=== PATIENT | male | born 1965 | race Caucasian/White ===

== ENCOUNTER 2017-01-05 09:50 | Inpatient (IN) | payer OTHER ==
[2017-01-05] MEDS ORDERED: Sodium Chloride 0.9% 2.5 ML Syringe FLUSH PRN (10:16)
[2017-01-05] MEDS ORDERED: Nitroglycerin 2% Oint 1 GM UD Packet TOP ONE (10:16)
[2017-01-05] MEDS ORDERED: Sodium Chloride 0.9% 10 ML Syringe FLUSH PRN (10:16)
[2017-01-05] MEDS ORDERED: Aspirin 81 MG Tab.Chew PO ONE (10:16)
--- NOTE | 2017-01-05 10:19 | EDM.PDOC ---
ED HPI GENERAL MEDICAL PROBLEM - General Chief Complaint: Respiratory Problem Stated Complaint: SOB Time Seen by Provider: 01/05/17 10:09 - History of Present Illness INITIAL COMMENTS - FREE TEXT/NARRATIVE: HISTORY AND PHYSICAL: History of present illness: The patient is a 51-year-old male with a history of [id number] diabetes hypercholesterolemia hypertension who was being followed in our family practice clinic and is currently going to the [facility] and states that over a year ago his numbers were all looking good so he stopped all of his medications. The patient says he has been restarted on the cholesterol med but does not take anything for blood pressure or diabetes. The patient states that he follows with the color strainer here at our hospital. The patient presents to the ER today stating that yesterday afternoon he was out hunting deer and walked only 20-30 yards and felt short of breath. When he stopped walking and rested he felt better. At this time he did not have any chest pain. The patient says that he felt fine the rest of the evening and then was trying to go to sleep and lay down and felt short of breath. He said he does not have a cough or fever but did have a cold last week which improved. The patient states that he did have midsternal chest discomfort which he told one nurse was only mild and another nurse that it was excruciating but on my evaluation tells me it was only mild. He said it did not radiate and he currently does not have the chest discomfort. Patient states he still feels short of breath. He has no leg pain or leg asymmetry but he does admit that his legs get swollen if he does not eat properly. He admits that he drinks a lot of caffeinated products does not hydrate and eats a lot of sodium rich foods. He has no abdominal pain no vomiting no diarrhea and no urinary complaints. Review of systems: As per history of present illness and below otherwise all systems reviewed and negative. Past medical history: As per history of present illness and as reviewed below otherwise noncontributory. Surgical history: As per history of present illness and as reviewed below otherwise noncontributory. Social history: No reported history of drug or alcohol abuse. Family history: As per history of present illness and as reviewed below otherwise noncontributory. Physical exam: General: Well-developed well-nourished overweight male who is nontoxic and vital signs of the note by me. He is not breathless in the ED HEENT: Atraumatic, normocephalic, negative for conjunctival pallor or scleral icterus, mucous membranes moist, throat clear, neck supple, nontender, trachea midline. Lungs: Clear to auscultation, breath sounds equal bilaterally, chest nontender. No worker breathing or sensory muscle use Heart: S1S2, regular, negative for clicks, rubs, or JVD. Abdomen: Soft, nondistended, nontender. Negative for masses or hepatosplenomegaly. Negative for costovertebral tenderness. Pelvis: Stable nontender. Genitourinary: Deferred. Rectal: Deferred. Extremities: Atraumatic, negative for cords or calf pain. Neurovascular unremarkable. The patient does have 1+ pedal edema bilaterally but no leg asymmetry or tenderness Neuro: Awake, alert, oriented. Cranial nerves II through XII unremarkable. Cerebellum unremarkable. Motor and sensory unremarkable throughout. Exam nonfocal. Diagnostics: EKG x 2 CBC CMP BNP INR troponin chest x-ray UA CTA of the chest Therapeutics: Aspirin Nitropaste IV O2 monitor Tylenol 1110: I checked with the patient previously and he states that he felt similarly and had no change in his symptomatology but at this particular time I was called back into the room by nursing because the patient said he suddenly felt more short of breath--like he was suffocating. His O2 sat at that time was 88-89% on room air and he was in the reclined position and was immediately sat up. His blood pressure previously had fallen to 189/97 with the Nitropaste but during this episode of shortness of breath went back up to 192/112. I will perform a repeat EKG and order a CTA of the chest and place oxygen on the patient. Patient states he has not having chest discomfort just feeling more short of breath. When I auscultate he is moving air bilaterally without any wheezing work of breathing stridor or accessory muscle use. He is not breathless 1230: Patient complains nursing of a persistent headache that started after coming to the emergency department and after the placement of nitro paste. I given him Tylenol but he says the distal persistent so we will remove the Nitropaste and I will discuss the further management of his blood pressure with the hospitalist. 1258: Case was discussed with our hospitalist Dr. Fam who requests Lasix 40 mg to be given and he is aware of the removal of the Nitropaste. He states he will further manage the blood pressure on the floor. He requests inpatient admission to telemetry. Patient is also aware of all testing results and need for admission and is agreeable. Critical care time excluding procedures:31min Impression: Episodic dyspnea, fluid overload and hypertension with history of medication noncompliance Definitive disposition and diagnosis as appropriate pending reevaluation and review of above. chest pain Pain Score (Numeric/FACES): 4 - Related Data Allergies Allergy/AdvReac Type Severity Reaction Status Date / Time No Known Allergies Allergy Verified 01/05/17 10:03 Home Meds: Home Meds Cholesterol Meds 01/05/17 [History] Past Medical History HEENT History: Reports: None Cardiovascular History: Reports: High Cholesterol, Hypertension Respiratory History: Reports: Bronchitis, Recurrent Gastrointestinal History: Reports: None Genitourinary History: Reports: None Musculoskeletal History: Reports: None Neurological History: Reports: None Psychiatric History: Reports: Anxiety, Depression Endocrine/Metabolic History: Reports: Diabetes, Type II Hematologic History: Reports: None Immunologic History: Reports: None Oncologic (Cancer) History: Reports: None Dermatologic History: Reports: None - Infectious Disease History Infectious Disease History: Reports: Chicken Pox, Measles, Mumps - Past Surgical History Musculoskeletal Surgical History: Reports: Other (See Below) Other Musculoskeletal Surgeries/Procedures:: surgery to knees & foot Social & Family History - Family History Family Medical History: Noncontributory - Tobacco Use Smoking Status *Q: Former Smoker Used Tobacco, but Quit: Yes Month Tobacco Last Used: 1985 - Caffeine Use Caffeine Use: Reports: Coffee, Soda - Recreational Drug Use Recreational Drug Use: No ED ROS GENERAL - Review of Systems Review Of Systems: ROS reveals no pertinent complaints other than HPI. ED EXAM, GENERAL - Physical Exam Exam: See Below (See dictation) Course - Vital Signs Last Recorded V/S: Last Vital Signs Temp 36.2 C 01/05/17 10:04 Pulse 95 01/05/17 12:20 Resp 18 01/05/17 12:20 BP 181/110 H 01/05/17 12:20 Pulse Ox 94 L 01/05/17 12:20 - Orders/Labs/Meds Orders: Active Orders 24 hr Category Date Time Status Patient Status [ADT] Stat ADT 01/05/17 13:05 Ordered Cardiac Monitoring [RC] . DIRECTED Care 01/05/17 10:15 Active EKG 12 Lead [EKG Documentation Completion] [RC] STAT Care 01/05/17 10:06 Active EKG Documentation Completion [RC] STAT Care 01/05/17 11:13 Active Oxygen Therapy, ED [RC] ASDIRECTED Care 01/05/17 10:15 Active Pulse Oximetry [RC] ASDIRECTED Care 01/05/17 10:15 Active Ang Chest [CT] Stat Exams 01/05/17 11:13 Taken Chest 1V Frontal [CR] Stat Exams 01/05/17 10:16 Taken Furosemide [Lasix] Med 01/05/17 13:04 Once 40 mg IVPUSH NOW ONE Sodium Chloride 0.9% [Saline Flush] Med 01/05/17 10:16 Active 10 ml FLUSH ASDIRECTED PRN Sodium Chloride 0.9% [Saline Flush] Med 01/05/17 10:16 Active 2.5 ml FLUSH ASDIRECTED PRN Saline Lock Insert [OM.PC] Stat Oth 01/05/17 10:15 Ordered Medication Orders Sodium Chloride (Saline Flush) 10 ml FLUSH ASDIRECTED PRN PRN Reason: Keep Vein Open Last Admin: 01/05/17 11:34 Dose: 10 ml Sodium Chloride (Saline Flush) 2.5 ml FLUSH ASDIRECTED PRN PRN Reason: Keep Vein Open Last Admin: 01/05/17 11:35 Dose: 2.5 ml Labs: Laboratory Tests 01/05/17 01/05/17 01/05/17 Range/Units 10:00 10:00 10:00 WBC 10.44 (4.0-11.0) K/uL RBC 5.14 (4.50-5.90) M/uL Hgb 16.0 (13.0-17.0) g/dL Hct 46.8 (38.0-50.0) % MCV 91.1 (80.0-98.0) fL MCH 31.1 (27.0-32.0) pg MCHC 34.2 (31.0-37.0) g/dL RDW Std Deviation 46.6 (28.0-62.0) fl RDW Coeff of Tita 14 (11.0-15.0) % Plt Count 204 (150-400) K/uL MPV 10.10 (7.40-12.00) fL Neut % (Auto) 62.8 (48.0-80.0) % Lymph % (Auto) 21.7 (16.0-40.0) % Edwards % (Auto) 9.7 (0.0-15.0) % Eos % (Auto) 5.0 (0.0-7.0) % Baso % (Auto) 0.8 (0.0-1.5) % Neut # (Auto) 6.6 H (1.4-5.7) K/uL Lymph # (Auto) 2.3 (0.6-2.4) K/uL Edwards # (Auto) 1.0 H (0.0-0.8) K/uL Eos # (Auto) 0.5 (0.0-0.7) K/uL Baso # (Auto) 0.1 (0.0-0.1) K/uL Nucleated RBC % 0.0 /100WBC Nucleated RBCs # 0 K/uL INR 0.98 (0.86-1.11) Sodium 140 (136-146) mmol/L Potassium 4.8 (3.5-5.1) mmol/L Chloride 110 (98-110) mmol/L Carbon Dioxide 19 L (21-31) mmol/L BUN 13 (6.0-23.0) mg/dL Creatinine 1.4 (0.6-1.5) mg/dL Est Cr Clr Drug Dosing 63.13 mL/min Estimated GFR (MDRD) 53.6 ml/min Glucose 111 H (60-110) mg/dL Calcium 9.4 (8.8-10.8) mg/dL Total Bilirubin 0.3 (0.1-1.5) mg/dL AST 67 H (5-40) IU/L ALT 62 H (8-54) IU/L Alkaline Phosphatase 73 (40-150) Troponin I < 0.10 (0.0-0.29) NG/ML B-Natriuretic Peptide (<100) PG/ML Total Protein 6.9 (6.0-8.0) g/dL Albumin 3.8 (3.5-5.0) g/dL Globulin 3.1 (2.0-3.5) g/dL Albumin/Globulin Ratio 1.2 L (1.3-2.8) Urine Color Urine Appearance Urine pH (5.0-8.0) Ur Specific [place] (1.001-1.035) Urine Protein (NEGATIVE) mg/dL Urine Glucose (UA) (NEGATIVE) mg/dL Urine Ketones (NEGATIVE) mg/dL Urine Occult Blood (NEGATIVE) Urine Nitrite (NEGATIVE) Urine Bilirubin (NEGATIVE) Urine Urobilinogen (<2.0) EU/dL Ur Leukocyte Esterase (NEGATIVE) Urine RBC (0-2/HPF) Urine WBC (0-5/HPF) Ur Epithelial Cells (NONE-FEW) Urine Bacteria (NEGATIVE) 01/05/17 01/05/17 Range/Units 10:00 11:28 WBC (4.0-11.0) K/uL RBC (4.50-5.90) M/uL Hgb (13.0-17.0) g/dL Hct (38.0-50.0) % MCV (80.0-98.0) fL MCH (27.0-32.0) pg MCHC (31.0-37.0) g/dL RDW Std Deviation (28.0-62.0) fl RDW Coeff of Tita (11.0-15.0) % Plt Count (150-400) K/uL MPV (7.40-12.00) fL Neut % (Auto) (48.0-80.0) % Lymph % (Auto) (16.0-40.0) % Edwards % (Auto) (0.0-15.0) % Eos % (Auto) (0.0-7.0) % Baso % (Auto) (0.0-1.5) % Neut # (Auto) (1.4-5.7) K/uL Lymph # (Auto) (0.6-2.4) K/uL Edwards # (Auto) (0.0-0.8) K/uL Eos # (Auto) (0.0-0.7) K/uL Baso # (Auto) (0.0-0.1) K/uL Nucleated RBC % /100WBC Nucleated RBCs # K/uL INR (0.86-1.11) Sodium (136-146) mmol/L Potassium (3.5-5.1) mmol/L Chloride (98-110) mmol/L Carbon Dioxide (21-31) mmol/L BUN (6.0-23.0) mg/dL Creatinine (0.6-1.5) mg/dL Est Cr Clr Drug Dosing mL/min Estimated GFR (MDRD) ml/min Glucose (60-110) mg/dL Calcium (8.8-10.8) mg/dL Total Bilirubin (0.1-1.5) mg/dL AST (5-40) IU/L ALT (8-54) IU/L Alkaline Phosphatase (40-150) Troponin I (0.0-0.29) NG/ML B-Natriuretic Peptide < 15 (<100) PG/ML Total Protein (6.0-8.0) g/dL Albumin (3.5-5.0) g/dL Globulin (2.0-3.5) g/dL Albumin/Globulin Ratio (1.3-2.8) Urine Color YELLOW Urine Appearance CLEAR Urine pH 7.0 (5.0-8.0) Ur Specific [place] 1.020 (1.001-1.035) Urine Protein NEGATIVE (NEGATIVE) mg/dL Urine Glucose (UA) NEGATIVE (NEGATIVE) mg/dL Urine Ketones NEGATIVE (NEGATIVE) mg/dL Urine Occult Blood NEGATIVE (NEGATIVE) Urine Nitrite NEGATIVE (NEGATIVE) Urine Bilirubin NEGATIVE (NEGATIVE) Urine Urobilinogen 0.2 (<2.0) EU/dL Ur Leukocyte Esterase NEGATIVE (NEGATIVE) Urine RBC NONE SEEN (0-2/HPF) Urine WBC NONE SEEN (0-5/HPF) Ur Epithelial Cells RARE (NONE-FEW) Urine Bacteria NOT SEEN (NEGATIVE) Meds: Medications Generic Name Dose Route Start Last Admin Trade Name Freq PRN Reason Stop Dose Admin Sodium Chloride 10 ml 01/05/17 10:16 01/05/17 11:34 Saline Flush FLUSH 10 ml ASDIRECTED PRN Administration Keep Vein Open Sodium Chloride 2.5 ml 01/05/17 10:16 01/05/17 11:35 Saline Flush FLUSH 2.5 ml ASDIRECTED PRN Administration Keep Vein Open Discontinued Medications Generic Name Dose Route Start Last Admin Trade Name Freq PRN Reason Stop Dose Admin Acetaminophen 1,000 mg 01/05/17 11:33 01/05/17 11:36 Tylenol Extra Strength PO 01/05/17 11:34 1,000 mg ONETIME ONE Administration Aspirin 324 mg 01/05/17 10:16 01/05/17 10:42 Aspirin PO 01/05/17 10:17 324 mg ONETIME ONE Administration Iopamidol 50 ml 01/05/17 12:26 01/05/17 12:27 Isovue Multipack-370 (76%) IVPUSH 01/05/17 12:27 50 ml ONETIME STA Administration Nitroglycerin 1 gm 01/05/17 10:16 01/05/17 10:41 Nitro-Bid 2% TOP 01/05/17 10:17 1 gm ONETIME ONE Administration Departure - Departure Time of Disposition: 13:08 Disposition: Admitted As Inpatient 67 Condition: Good Clinical Impression: Hypertension Qualifiers: Hypertension type: unspecified secondary hypertension Qualified Code(s): I15.9 - Secondary hypertension, unspecified; I15 - Secondary hypertension Fluid overload Qualifiers: Hypervolemia type: other Qualified Code(s): E87.79 - Other fluid overload Dyspnea Qualifiers: Dyspnea type: unspecified Qualified Code(s): R06.00 - Dyspnea, unspecified - Discharge Information Referrals: PCP,None [Primary Care Provider] - Forms: ED Department Discharge - My Orders Last 24 Hours: My Active Orders 01/05/17 10:06 EKG 12 Lead [EKG Documentation Completion] [RC] STAT 01/05/17 10:15 Cardiac Monitoring [RC] . DIRECTED Oxygen Therapy, ED [RC] ASDIRECTED Pulse Oximetry [RC] ASDIRECTED Saline Lock Insert [OM.PC] Stat 01/05/17 10:16 Chest 1V Frontal [CR] Stat Sodium Chloride 0.9% [Saline Flush] 10 ml FLUSH ASDIRECTED PRN Sodium Chloride 0.9% [Saline Flush] 2.5 ml FLUSH ASDIRECTED PRN 01/05/17 11:13 EKG Documentation Completion [RC] STAT Ang Chest [CT] Stat 01/05/17 13:04 Furosemide [Lasix] 40 mg IVPUSH NOW ONE 01/05/17 13:05 Patient Status [ADT] Stat - Assessment/Plan Last 24 Hours: My Active Orders 01/05/17 10:06 EKG 12 Lead [EKG Documentation Completion] [RC] STAT 01/05/17 10:15 Cardiac Monitoring [RC] . DIRECTED Oxygen Therapy, ED [RC] ASDIRECTED Pulse Oximetry [RC] ASDIRECTED Saline Lock Insert [OM.PC] Stat 01/05/17 10:16 Chest 1V Frontal [CR] Stat Sodium Chloride 0.9% [Saline Flush] 10 ml FLUSH ASDIRECTED PRN Sodium Chloride 0.9% [Saline Flush] 2.5 ml FLUSH ASDIRECTED PRN 01/05/17 11:13 EKG Documentation Completion [RC] STAT Ang Chest [CT] Stat 01/05/17 13:04 Furosemide [Lasix] 40 mg IVPUSH NOW ONE 01/05/17 13:05 Patient Status [ADT] Stat
[2017-01-05 10:51] LABS: CHLORIDE,CL 110 mmol/L (98-110); SODIUM,NA 140 mmol/L (136-146)
[2017-01-05] MEDS ORDERED: Acetaminophen 500 MG Tab PO ONE (11:33)
[2017-01-05] MEDS ORDERED: Iopamidol 755 MG/ML 500 ML Multipack Bottle IVPUSH STA (12:26)
[2017-01-05] MEDS ORDERED: Furosemide 40 MG/4 ML VIAL IVPUSH ONE (13:04)
--- NOTE | 2017-01-05 14:54 | CR ---
EXAM DATE: 01/05/17 PATIENT'S AGE: 51 Patient: DARREN MENDOSA Facility: [place], [place] Site . Site : 1965 Study: XRay Chest [id number]/4/2017 10:42:56 AM Ordering Physician: Ang Vergara Final Report: HISTORY: Chest pain. Shortness of breath. Technique: Portable frontal view of the chest. Comparison: None. Findings: No airspace consolidation. No pleural effusion or pneumothorax. Pulmonary vascular redistribution. Cardiac silhouette is upper limits of normal for size. Impression: Pulmonary vascular congestion. Dictated by Jonathon Roa MD @ Jan 05 2017 11:19AM (Electronic Signature) Report Signed by Proxy. FARRAH
--- NOTE | 2017-01-05 14:57 | CT ---
EXAM DATE: 01/05/17 PATIENT'S AGE: 51 Patient: DARREN MENDOSA Facility: [place], [place] Site . Site : 1965 Study: CT Chest Angio [id number]/4/2017 12:29:35 PM Ordering Physician: Ang Vergara Final Report: INDICATION: Chest pain; rule out pulmonary thromboembolism. Comparison: Chest radiograph 01/05/2017. Technique: CT chest with intravenous contrast; coronal and sagittal reformats. Findings: No CT evidence of acute or chronic pulmonary thromboembolism. No evidence of aortic aneurysm or dissection. Normal size cardiac silhouette without any evidence of pericardial effusion. No acute pneumonic infiltrates. No abnormal intra pulmonary nodular densities. No abnormal mediastinal or hilar lymphadenopathy. No evidence of pleural effusion or chest wall pathology. Limited CT through the upper abdomen is unremarkable. Impression: Negative CT chest with intravenous contrast. Please note that all CT scans at this facility use dose modulation, iterative reconstruction, and/or weight-based dosing when appropriate to reduce radiation dose to as low as reasonably achievable. Dictated by Yash Olmstead MD @ Jan 05 2017 12:41PM (Electronic Signature) Report Signed by Proxy. FARRAH
[2017-01-05] MEDS: Acetaminophen 325 MG Tab PO PRN ×2 (15:06→20:09)
[2017-01-05] MEDS: Insulin Aspart 100 Units/ML 3 ML Pen SUBCUT SCH (17:38)
--- NOTE | 2017-01-05 19:20 | PCM.HP ---
H&P History of Present Illness - General Admit Problem/Dx: Admission Diagnosis/Problem Admission Diagnosis/Problem Fluid volume disorder - History of Present Illness Initial Comments - Free Text/Narative: 51 yo male with pmh of HTN, hyperlipidemia, DM and ANGIE who presents with shortness of breath. Patient reports he stopped taking his blood pressure and diabetic medications several years ago and does not regularly check his BS or BP. He reports 40 pound weight gain this month. He reports increasing pedal edema. He has not had any difficulty breathing until yesterday while walking outside he got short of breath after 30 yards. At night he was short of breath while laying flat. He uses CPAP at night. He denies any chest pain, cough or palpitations. CXR reports pulmonary vascular congestion. CT angio chest is negative for PE. Patient received nitro paste and lasix in ED. Nitro paste was discontinued due to headache. chest pain Pain Score (Numeric/FACES): 4 - Related Data Allergies/Adverse Reactions: Allergies Allergy/AdvReac Type Severity Reaction Status Date / Time No Known Allergies Allergy Verified 01/05/17 10:03 Home Medications: Home Meds Cholesterol Meds 01/05/17 [History] Past Medical History HEENT History: Reports: None Cardiovascular History: Reports: High Cholesterol, Hypertension Respiratory History: Reports: Bronchitis, Recurrent Gastrointestinal History: Reports: None Genitourinary History: Reports: None Musculoskeletal History: Reports: None Neurological History: Reports: None Psychiatric History: Reports: Anxiety, Depression Endocrine/Metabolic History: Reports: Diabetes, Type II Hematologic History: Reports: None Immunologic History: Reports: None Oncologic (Cancer) History: Reports: None Dermatologic History: Reports: None - Infectious Disease History Infectious Disease History: Reports: Chicken Pox, Measles, Mumps - Past Surgical History Musculoskeletal Surgical History: Reports: Other (See Below) Other Musculoskeletal Surgeries/Procedures:: surgery to knees & foot Social & Family History - Family History Family Medical History: Noncontributory - Tobacco Use Smoking Status *Q: Never Smoker Used Tobacco, but Quit: Yes Month Tobacco Last Used: 1985 Second Hand Smoke Exposure: No - Caffeine Use Caffeine Use: Reports: Coffee - Recreational Drug Use Recreational Drug Use: No H&P Review of Systems - Review of Systems: Review Of Systems: ROS reveals no pertinent complaints other than HPI. Exam - Exam Exam: See Below - Vital Signs Vital Signs: Last Vital Signs Temp 36.5 C 01/05/17 16:50 Pulse 78 01/05/17 16:50 Resp 18 01/05/17 16:50 BP 133/95 H 01/05/17 16:50 Pulse Ox 95 01/05/17 16:50 Weight: 166.015 kg - Exam General: Alert, Oriented HEENT: Mucosa Moist & [place] Neck: JVD Cardiovascular: Regular Rate, Regular Rhythm GI/Abdominal Exam: Normal Bowel Sounds, Soft, Non-Tender Extremities: Pedal Edema (+2 pedal edema) Skin: Warm, Dry, Intact - Patient Data Lab Results Last 24 hrs: Laboratory Results - last 24 hr 01/05/17 01/05/17 Range/Units 16:05 17:02 POC Glucose 127 H (60-110) mg/dL Troponin I < 0.10 (0.0-0.29) NG/ML Result Diagrams: 01/05/17 10:00 01/05/17 10:00 EKG INTERPRETATION Rhythm: NSR *Q Meaningful Use (ADM) - VTE *Q VTE Criteria *Q: - Stroke *Q Stroke Criteria *Q: - AMI *Q AMI Criteria *Q: Problem List Initiated/Reviewed/Updated: Yes Orders Last 24hrs: Active Orders 24 hr Category Date Time Status Accu Check [Blood Glucose Check, Bedside] [RC] TIDAC Care 01/05/17 15:48 Active Communication Order [RC] ROUTINE Care 01/05/17 15:00 Active ADA Diabetic [[place] [employer] Diet] [DIET Diet 01/05/17 Dinner Active ] Cardiac [Heart Healthy Diet] [DIET] Diet 01/05/17 Dinner Active TROPONIN I [CHEM] Routine Lab 01/05/17 22:00 Ordered Acetaminophen [Tylenol] Med 01/05/17 14:56 Active 650 mg PO Q4H PRN Furosemide [Lasix] Med 01/05/17 21:00 Ordered 40 mg IVPUSH BID Insulin Aspart [NovoLOG] Med 01/05/17 16:00 Active See Protocol SUBCUT TIDAC Medication Orders Acetaminophen (Tylenol) 650 mg PO Q4H PRN PRN Reason: Pain Last Admin: 01/05/17 15:06 Dose: 650 mg Insulin Aspart (Novolog) 0 unit SUBCUT TIDAC JESSI PRN Reason: Protocol Last Admin: 01/05/17 17:38 Dose: Not Given Admin: 01/05/17 17:38 Dose: Not Given Sodium Chloride (Saline Flush) 10 ml FLUSH ASDIRECTED PRN PRN Reason: Keep Vein Open Last Admin: 01/05/17 11:34 Dose: 10 ml Sodium Chloride (Saline Flush) 2.5 ml FLUSH ASDIRECTED PRN PRN Reason: Keep Vein Open Last Admin: 01/05/17 11:35 Dose: 2.5 ml Assessment/Plan Comment:: 51 yo male admitted with new onset CHF exacerbation. CHF exacerbation: will diures with lasix. echocardiogram ordered HTN: was 170s-190s systolic on presentation now 130s, will continue to monitor DM: on sliding scale insulin and diabetic diet. ANGIE: CPAP at night
[2017-01-05] MEDS: Furosemide 40 MG/4 ML VIAL IVPUSH SCH (20:08)
[2017-01-06] MEDS: Acetaminophen 325 MG Tab PO PRN ×3 (01:25→16:44)
[2017-01-06] MEDS: Insulin Aspart 100 Units/ML 3 ML Pen SUBCUT SCH ×3 (06:56→16:45)
--- NOTE | 2017-01-06 08:04 | PCM.PN ---
- Review of Systems Systems Review Comment:: reports orthopnea at night, breathing is better this morning. - Patient Data Vitals - Most Recent: Last Vital Signs Temp 36.7 C 01/06/17 02:00 Pulse 86 01/06/17 02:00 Resp 20 01/06/17 02:00 BP 159/92 H 01/06/17 02:00 Pulse Ox 93 L 01/06/17 02:00 Weight - Most Recent: 163.8 kg I&O - Last 24 Hours: Intake & Output 01/05/17 01/06/17 01/06/17 23:59 06:59 14:59 Intake Total Output Total Balance Lab Results Last 24 Hours: Laboratory Results - last 24 hr 01/05/17 01/05/17 01/05/17 Range/Units 16:05 17:02 21:45 WBC (4.0-11.0) K/uL RBC (4.50-5.90) M/uL Hgb (13.0-17.0) g/dL Hct (38.0-50.0) % MCV (80.0-98.0) fL MCH (27.0-32.0) pg MCHC (31.0-37.0) g/dL RDW Std Deviation (28.0-62.0) fl RDW Coeff of Tita (11.0-15.0) % Plt Count (150-400) K/uL MPV (7.40-12.00) fL Neut % (Auto) (48.0-80.0) % Lymph % (Auto) (16.0-40.0) % [place] % (Auto) (0.0-15.0) % Eos % (Auto) (0.0-7.0) % Baso % (Auto) (0.0-1.5) % Neut # (Auto) (1.4-5.7) K/uL Lymph # (Auto) (0.6-2.4) K/uL [place] # (Auto) (0.0-0.8) K/uL Eos # (Auto) (0.0-0.7) K/uL Baso # (Auto) (0.0-0.1) K/uL Nucleated RBC % /100WBC Nucleated RBCs # K/uL Sodium (136-146) mmol/L Potassium (3.5-5.1) mmol/L Chloride (98-110) mmol/L Carbon Dioxide (21-31) mmol/L BUN (6.0-23.0) mg/dL Creatinine (0.6-1.5) mg/dL Est Cr Clr Drug Dosing mL/min Estimated GFR (MDRD) ml/min Glucose (60-110) mg/dL POC Glucose 127 H 94 (60-110) mg/dL Calcium (8.8-10.8) mg/dL Troponin I < 0.10 (0.0-0.29) NG/ML 01/05/17 01/06/17 01/06/17 Range/Units 21:54 05:30 05:30 WBC 12.36 H (4.0-11.0) K/uL RBC 5.21 (4.50-5.90) M/uL Hgb 16.0 (13.0-17.0) g/dL Hct 47.5 (38.0-50.0) % MCV 91.2 (80.0-98.0) fL MCH 30.7 (27.0-32.0) pg MCHC 33.7 (31.0-37.0) g/dL RDW Std Deviation 46.3 (28.0-62.0) fl RDW Coeff of Tita 14 (11.0-15.0) % Plt Count 220 (150-400) K/uL MPV 10.10 (7.40-12.00) fL Neut % (Auto) 65.6 (48.0-80.0) % Lymph % (Auto) 20.1 (16.0-40.0) % [place] % (Auto) 9.3 (0.0-15.0) % Eos % (Auto) 4.4 (0.0-7.0) % Baso % (Auto) 0.6 (0.0-1.5) % Neut # (Auto) 8.1 H (1.4-5.7) K/uL Lymph # (Auto) 2.5 H (0.6-2.4) K/uL [place] # (Auto) 1.2 H (0.0-0.8) K/uL Eos # (Auto) 0.5 (0.0-0.7) K/uL Baso # (Auto) 0.1 (0.0-0.1) K/uL Nucleated RBC % 0.0 /100WBC Nucleated RBCs # 0 K/uL Sodium 139 (136-146) mmol/L Potassium 4.3 (3.5-5.1) mmol/L Chloride 102 (98-110) mmol/L Carbon Dioxide 28 (21-31) mmol/L BUN 15 (6.0-23.0) mg/dL Creatinine 1.4 (0.6-1.5) mg/dL Est Cr Clr Drug Dosing 63.13 mL/min Estimated GFR (MDRD) 53.6 ml/min Glucose 138 H (60-110) mg/dL POC Glucose (60-110) mg/dL Calcium 9.6 (8.8-10.8) mg/dL Troponin I < 0.10 (0.0-0.29) NG/ML 01/06/17 Range/Units 07:17 WBC (4.0-11.0) K/uL RBC (4.50-5.90) M/uL Hgb (13.0-17.0) g/dL Hct (38.0-50.0) % MCV (80.0-98.0) fL MCH (27.0-32.0) pg MCHC (31.0-37.0) g/dL RDW Std Deviation (28.0-62.0) fl RDW Coeff of Tita (11.0-15.0) % Plt Count (150-400) K/uL MPV (7.40-12.00) fL Neut % (Auto) (48.0-80.0) % Lymph % (Auto) (16.0-40.0) % [place] % (Auto) (0.0-15.0) % Eos % (Auto) (0.0-7.0) % Baso % (Auto) (0.0-1.5) % Neut # (Auto) (1.4-5.7) K/uL Lymph # (Auto) (0.6-2.4) K/uL [place] # (Auto) (0.0-0.8) K/uL Eos # (Auto) (0.0-0.7) K/uL Baso # (Auto) (0.0-0.1) K/uL Nucleated RBC % /100WBC Nucleated RBCs # K/uL Sodium (136-146) mmol/L Potassium (3.5-5.1) mmol/L Chloride (98-110) mmol/L Carbon Dioxide (21-31) mmol/L BUN (6.0-23.0) mg/dL Creatinine (0.6-1.5) mg/dL Est Cr Clr Drug Dosing mL/min Estimated GFR (MDRD) ml/min Glucose (60-110) mg/dL POC Glucose 114 H (60-110) mg/dL Calcium (8.8-10.8) mg/dL Troponin I (0.0-0.29) NG/ML Med Orders - Current: Current Medications Acetaminophen (Tylenol) 650 mg PO Q4H PRN PRN Reason: Pain Last Admin: 01/06/17 01:25 CDT Dose: 650 mg Enoxaparin Sodium (Lovenox) 40 mg SUBCUT DAILY JESSI Furosemide (Lasix) 40 mg IVPUSH BID JESSI Last Admin: 01/05/17 20:08 Dose: 40 mg Insulin Aspart (Novolog) 0 unit SUBCUT TIDAC JESSI PRN Reason: Protocol Last Admin: 01/06/17 06:56 Dose: Not Given Sodium Chloride (Saline Flush) 10 ml FLUSH ASDIRECTED PRN PRN Reason: Keep Vein Open Last Admin: 01/05/17 11:34 Dose: 10 ml Sodium Chloride (Saline Flush) 2.5 ml FLUSH ASDIRECTED PRN PRN Reason: Keep Vein Open Last Admin: 01/05/17 11:35 Dose: 2.5 ml Discontinued Medications Acetaminophen (Tylenol Extra Strength) 1,000 mg PO ONETIME ONE Stop: 01/05/17 11:34 Last Admin: 01/05/17 11:36 Dose: 1,000 mg Aspirin (Aspirin) 324 mg PO ONETIME ONE Stop: 01/05/17 10:17 Last Admin: 01/05/17 10:42 Dose: 324 mg Furosemide (Lasix) 40 mg IVPUSH NOW ONE Stop: 01/05/17 13:05 Last Admin: 01/05/17 13:13 Dose: 40 mg Iopamidol (Isovue Multipack-370 (76%)) 50 ml IVPUSH ONETIME STA Stop: 01/05/17 12:27 Last Admin: 01/05/17 12:27 Dose: 50 ml Nitroglycerin (Nitro-Bid 2%) 1 gm TOP ONETIME ONE Stop: 01/05/17 10:17 Last Admin: 01/05/17 10:41 Dose: 1 gm - Exam General: Alert, Oriented HEENT: Mucous Membr. Moist/[place] Lungs: Clear to Auscultation, Normal Respiratory Effort Cardiovascular: Regular Rate, Regular Rhythm, No Murmurs, Gallops Extremities: Pedal Edema (+2 edema) Skin: Warm, Dry, Intact Neurological: No New Focal Deficit - Problem List Review Problem List Initiated/Reviewed/Updated: Yes - My Orders Last 24 Hours: My Active Orders 01/05/17 13:30 Telemetry Monitoring [Cardiac Monitoring] [RC] . DIRECTED 01/05/17 14:56 Acetaminophen [Tylenol] 650 mg PO Q4H PRN 01/05/17 15:00 Communication Order [RC] ROUTINE 01/05/17 15:48 Accu Check [Blood Glucose Check, Bedside] [RC] TIDAC 01/05/17 16:00 Insulin Aspart [NovoLOG] See Protocol SUBCUT TIDAC 01/05/17 19:21 Oxygen Therapy [RC] PRN Up ad Reena [RC] ASDIRECTED Vital Signs [RC] Q4H Sequential Compression Device [OM.PC] Per Unit Routine Resuscitation Status Routine 01/05/17 19:22 Antiembolic Devices [RC] PER UNIT ROUTINE 01/05/17 21:00 Furosemide [Lasix] 40 mg IVPUSH BID 01/05/17 Dinner ADA Diabetic [[place] [employer] Diet] [DIET] Cardiac [Heart Healthy Diet] [DIET] 01/06/17 09:00 Enoxaparin [Lovenox] 40 mg SUBCUT DAILY 01/07/17 05:11 BASIC METABOLIC PANEL,BMP [CHEM] AM CBC WITH AUTO DIFF [HEME] AM 01/07/17 07:00 Echo 2D wo Cont [US] Routine - Plan Plan:: 51 yo male admitted with new onset CHF exacerbation. CHF exacerbation: will continue lasix. echocardiogram ordered for tomorrow DM: on sliding scale insulin and diabetic diet. ANGIE: CPAP at night
[2017-01-06] MEDS: Furosemide 40 MG/4 ML VIAL IVPUSH SCH ×2 (09:01→20:13)
[2017-01-06] MEDS: Enoxaparin 40 MG/0.4 ML Syringe SUBCUT SCH (09:01)
[2017-01-06] MEDS ORDERED: hydrALAZINE 20 MG/ML SDV IVPUSH ONE ×2 (14:18→16:32)
[2017-01-06] MEDS ORDERED: diphenhydrAMINE 50 MG/ML SDV IVPUSH ONE (17:30)
[2017-01-06] MEDS ORDERED: Prochlorperazine 10 MG in Sodium Chloride 0.9% 50 ML IV ONE (17:30)
[2017-01-06] MEDS ORDERED: Ketorolac 30 MG/ML SDV IVPUSH ONE (17:30)
[2017-01-06] MEDS ORDERED: LORazepam 2 MG/ML SDV IVPUSH ONE (19:33)
[2017-01-07] MEDS: Lisinopril 10 MG Tab PO SCH (03:06)
[2017-01-07] MEDS: Insulin Aspart 100 Units/ML 3 ML Pen SUBCUT SCH ×3 (06:42→16:29)
[2017-01-07] MEDS: Acetaminophen 325 MG Tab PO PRN ×3 (07:22→17:16)
[2017-01-07] MEDS: Furosemide 40 MG/4 ML VIAL IVPUSH SCH ×3 (08:48→17:15)
[2017-01-07] MEDS: Enoxaparin 40 MG/0.4 ML Syringe SUBCUT SCH (08:48)
[2017-01-07] MEDS ORDERED: Lisinopril 10 MG Tab PO SCH (09:00)
--- NOTE | 2017-01-07 12:26 | PCM.PN ---
- General Info Date of Service: 01/07/17 Subjective Update: Last 24 hours, the patient admitted for shortness of breath, hypertension and CHF exacerbation was found to be hypertensive with blood pressures as high as 190 systolic. I gave this patient hydralazine 10 mg IV twice. The last check this morning his blood pressure is 167 systolic. He was complaining of a headache last night for which I gave him a migraine cocktail consisting of Benadryl, Compazine, Toradol which he responded well to. He was also complaining of anxiety which I gave him 1 mg of Ativan he said that helped a lot. This morning, this patient states that his shortness of breath is improving. He does however complain of orthopnea and leg swelling. He denies any headaches, blurry vision, chest pain or palpitations. - Review of Systems General: Reports: Other (See history of present illness) - Patient Data Vitals - Most Recent: Last Vital Signs Temp 36.6 C 01/07/17 08:00 Pulse 93 01/07/17 08:00 Resp 20 01/07/17 08:00 BP 167/107 H 01/07/17 08:00 Pulse Ox 98 01/07/17 08:00 Weight - Most Recent: 161.6 kg I&O - Last 24 Hours: Intake & Output 01/06/17 01/07/17 01/07/17 22:59 06:59 14:59 Intake Total 340 1600 Output Total 850 2325 Balance -510 -845 Lab Results Last 24 Hours: Laboratory Results - last 24 hr 01/06/17 01/06/17 01/07/17 Range/Units 12:34 17:03 05:18 WBC 12.47 H (4.0-11.0) K/uL RBC 5.64 (4.50-5.90) M/uL Hgb 17.6 H (13.0-17.0) g/dL Hct 51.0 H (38.0-50.0) % MCV 90.4 (80.0-98.0) fL MCH 31.2 (27.0-32.0) pg MCHC 34.5 (31.0-37.0) g/dL RDW Std Deviation 46.4 (28.0-62.0) fl RDW Coeff of Tita 14 (11.0-15.0) % Plt Count 228 (150-400) K/uL MPV 10.00 (7.40-12.00) fL Neut % (Auto) 64.3 (48.0-80.0) % Lymph % (Auto) 20.2 (16.0-40.0) % [place] % (Auto) 11.1 (0.0-15.0) % Eos % (Auto) 4.0 (0.0-7.0) % Baso % (Auto) 0.4 (0.0-1.5) % Neut # (Auto) 8.0 H (1.4-5.7) K/uL Lymph # (Auto) 2.5 H (0.6-2.4) K/uL [place] # (Auto) 1.4 H (0.0-0.8) K/uL Eos # (Auto) 0.5 (0.0-0.7) K/uL Baso # (Auto) 0.1 (0.0-0.1) K/uL Nucleated RBC % 0.0 /100WBC Nucleated RBCs # 0 K/uL Sodium (136-146) mmol/L Potassium (3.5-5.1) mmol/L Chloride (98-110) mmol/L Carbon Dioxide (21-31) mmol/L BUN (6.0-23.0) mg/dL Creatinine (0.6-1.5) mg/dL Est Cr Clr Drug Dosing mL/min Estimated GFR (MDRD) ml/min Glucose (60-110) mg/dL POC Glucose 93 92 (60-110) mg/dL Calcium (8.8-10.8) mg/dL 01/07/17 01/07/17 01/07/17 Range/Units 05:18 06:40 11:47 WBC (4.0-11.0) K/uL RBC (4.50-5.90) M/uL Hgb (13.0-17.0) g/dL Hct (38.0-50.0) % MCV (80.0-98.0) fL MCH (27.0-32.0) pg MCHC (31.0-37.0) g/dL RDW Std Deviation (28.0-62.0) fl RDW Coeff of Tita (11.0-15.0) % Plt Count (150-400) K/uL MPV (7.40-12.00) fL Neut % (Auto) (48.0-80.0) % Lymph % (Auto) (16.0-40.0) % [place] % (Auto) (0.0-15.0) % Eos % (Auto) (0.0-7.0) % Baso % (Auto) (0.0-1.5) % Neut # (Auto) (1.4-5.7) K/uL Lymph # (Auto) (0.6-2.4) K/uL [place] # (Auto) (0.0-0.8) K/uL Eos # (Auto) (0.0-0.7) K/uL Baso # (Auto) (0.0-0.1) K/uL Nucleated RBC % /100WBC Nucleated RBCs # K/uL Sodium 138 (136-146) mmol/L Potassium 4.5 (3.5-5.1) mmol/L Chloride 99 (98-110) mmol/L Carbon Dioxide 25 (21-31) mmol/L BUN 21 (6.0-23.0) mg/dL Creatinine 1.4 (0.6-1.5) mg/dL Est Cr Clr Drug Dosing 63.13 mL/min Estimated GFR (MDRD) 53.6 ml/min Glucose 112 H (60-110) mg/dL POC Glucose 100 57 L (60-110) mg/dL Calcium 9.7 (8.8-10.8) mg/dL Med Orders - Current: Current Medications Acetaminophen (Tylenol) 650 mg PO Q4H PRN PRN Reason: Pain Last Admin: 01/07/17 07:22 Dose: 650 mg Enoxaparin Sodium (Lovenox) 40 mg SUBCUT DAILY [facility] Last Admin: 01/07/17 08:48 Dose: 40 mg Furosemide (Lasix) 40 mg IVPUSH 0600,1200,1600 [facility] Insulin Aspart (Novolog) 0 unit SUBCUT TIDAC [facility] PRN Reason: Protocol Last Admin: 01/07/17 11:57 Dose: Not Given Lisinopril (Prinivil) 20 mg PO DAILY [facility] Last Admin: 01/07/17 03:06 Dose: 20 mg Sodium Chloride (Saline Flush) 10 ml FLUSH ASDIRECTED PRN PRN Reason: Keep Vein Open Last Admin: 01/05/17 11:34 Dose: 10 ml Sodium Chloride (Saline Flush) 2.5 ml FLUSH ASDIRECTED PRN PRN Reason: Keep Vein Open Last Admin: 01/05/17 11:35 Dose: 2.5 ml Discontinued Medications Acetaminophen (Tylenol Extra Strength) 1,000 mg PO ONETIME ONE Stop: 01/05/17 11:34 Last Admin: 01/05/17 11:36 Dose: 1,000 mg Aspirin (Aspirin) 324 mg PO ONETIME ONE Stop: 01/05/17 10:17 Last Admin: 01/05/17 10:42 Dose: 324 mg Diphenhydramine HCl (Benadryl) 25 mg IVPUSH ONETIME ONE Stop: 01/06/17 17:31 Last Admin: 01/06/17 17:56 Dose: 25 mg Furosemide (Lasix) 40 mg IVPUSH NOW ONE Stop: 01/05/17 13:05 Last Admin: 01/05/17 13:13 Dose: 40 mg Furosemide (Lasix) 40 mg IVPUSH BID JESSI Last Admin: 01/07/17 08:48 Dose: 40 mg Furosemide (Lasix) 40 mg IVPUSH TID JESSI Hydralazine HCl (Apresoline) 10 mg IVPUSH ONETIME ONE Stop: 01/06/17 14:19 Last Admin: 01/06/17 14:38 Dose: 10 mg Hydralazine HCl (Apresoline) 10 mg IVPUSH ONETIME ONE Stop: 01/06/17 16:33 Last Admin: 01/06/17 16:43 Dose: 10 mg Prochlorperazine Edisylate 10 (mg/ Sodium Chloride) 52 mls @ 150 mls/hr IV ONETIME ONE Stop: 01/06/17 17:50 Last Admin: 01/06/17 18:20 Dose: 150 mls/hr Iopamidol (Isovue Multipack-370 (76%)) 50 ml IVPUSH ONETIME STA Stop: 01/05/17 12:27 Last Admin: 01/05/17 12:27 Dose: 50 ml Ketorolac Tromethamine (Toradol) 30 mg IVPUSH ONETIME ONE Stop: 01/06/17 17:31 Last Admin: 01/06/17 17:55 Dose: 30 mg Lisinopril (Prinivil) 20 mg PO DAILY JESSI Lorazepam (Ativan) 1 mg IVPUSH ONETIME ONE Stop: 01/06/17 19:34 Last Admin: 01/06/17 20:13 Dose: 1 mg Nitroglycerin (Nitro-Bid 2%) 1 gm TOP ONETIME ONE Stop: 01/05/17 10:17 Last Admin: 01/05/17 10:41 Dose: 1 gm - Exam General: Alert, Oriented, Cooperative Lungs: Clear to Auscultation, Normal Respiratory Effort Cardiovascular: Regular Rate, Regular Rhythm, No Murmurs GI/Abdominal Exam: Normal Bowel Sounds, Soft Extremities: Other (2+ pitting edema bilaterally) Peripheral Pulses: 2+: Dorsalis Pedis (L), Dorsalis Pedis (R) Skin: Warm, Intact - Problem List Review Problem List Initiated/Reviewed/Updated: Yes - My Orders Last 24 Hours: My Active Orders 01/06/17 11:38 Communication Order [RC] ROUTINE 01/07/17 16:00 Furosemide [Lasix] 40 mg IVPUSH 0600,1200,1600 - Assessment Assessment:: Assessment #1. CHF exacerbation #2. Hypertension #3. History of obstructive sleep apnea, diabetes - Plan Plan:: Plan #1. Increase Lasix to 40 mg IV 3 times a day. Continue to follow up on ins and outs #2. Start lisinopril 20 mg by mouth daily #3. Monitor blood pressure #4. Echocardiogram ordered #4. Anticipate discharge tomorrow
[2017-01-07] MEDS ORDERED: Furosemide 40 MG/4 ML VIAL IVPUSH SCH ×2 (14:00→16:00)
[2017-01-08] MEDS: Acetaminophen 325 MG Tab PO PRN ×2 (05:01→08:22)
[2017-01-08] MEDS: Furosemide 40 MG/4 ML VIAL IVPUSH SCH (05:02)
[2017-01-08] MEDS: Insulin Aspart 100 Units/ML 3 ML Pen SUBCUT SCH (06:30)
[2017-01-08] MEDS: Lisinopril 10 MG Tab PO SCH (08:21)
[2017-01-08] MEDS: Enoxaparin 40 MG/0.4 ML Syringe SUBCUT SCH (08:40)
--- NOTE | 2017-01-08 13:17 | PCM.DCSUM1 ---
Discharge Summary - Hospital Course Free Text/Narrative:: Admission date January 05, 2017 Discharge date January 08, 2017 Admission diagnosis #1. CHF exacerbation with shortness of breath #2. Hypertension #3. Type 2 diabetes #4. History of Obstructive sleep apnea #5. Recent 40 pound weight gain #6. History of anxiety Discharge diagnosis #1. CHF exacerbation that is stable and improved #2. Hypertension #3. Type 2 diabetes, obstructive sleep apnea, anxiety #4. Echocardiogram indicating an ejection fraction of 55% and hypertrophic cardiomyopathy. Hospital course: 51-year-old male that presented to the emergency department on 05 January complaining of shortness of breath. This patient reported that he stopped taking all of his antihypertensives and diabetes medications for over a month prior to arrival to the emergency room. He also reported a 40 pound weight gain since then. He was evaluated by the ER and the hospitalist who deemed that he needed to be admitted for CHF exacerbation. He was then admitted for observation. He is started on IV Lasix 40 mg twice a day. Daily reports of ins and outs indicated a adequate diuresis. He was increased to 40 mg IV 3 times a day the day before discharge. Patient's pedal edema along with his shortness of breath improved greatly with this. An echocardiogram was also obtained indicating hypertrophic cardiomyopathy with an ejection fraction of 55% . Patient had an episode of anxiety responded well to 1 mg of Ativan. He requested this again the next day which was declined. He is able to do well without it. He also complained of a headache that same day he had the anxiety, which responded well to a migraine cocktail. Patient also had significant hypertension with blood pressures ranging in the 190s systolic. This responded well to hydralazine 10 mg IV. He was then started on 20 mg of lisinopril. At the time of discharge, blood pressure was on the upper limits of normal. Discharge medications Lisinopril 20 mg daily Lasix 40 mg twice a day 7 days Lasix 40 mg daily thereafter Patient to follow-up with his primary care provider Dr. Murphy within 1 week. Patient agrees to the plan. Patient was advised to return if he expresses any chest pain, shortness of breath, worsening leg swelling. - Discharge Data Discharge Date: 01/08/17 Discharge Disposition: Home, Self-Care 01 Condition: Good - Patient Instructions Diet: Heart Healthy Diet Driving: May Drive Today Notify Provider of: Fever, Increased Pain, Swelling and Redness Other/Special Instructions: shortness of breath, chest pain - Discharge Plan Prescriptions/Med Rec: Furosemide [Lasix] 40 mg PO DAILY 30 Days #30 tablet Furosemide [Lasix] 40 mg PO BID 7 Days #14 tablet Lisinopril [Prinivil] 20 mg PO DAILY 30 Days #60 tablet Home Medications: Home Meds Cholesterol Meds 01/05/17 [History] Escitalopram Oxalate 20 mg PO DAILY 01/07/17 [History] Furosemide [Lasix] 40 mg PO BID 7 Days #14 tablet 01/08/17 [Rx] Lisinopril [Prinivil] 20 mg PO DAILY 30 Days #60 tablet 01/08/17 [Rx] Furosemide [Lasix] 40 mg PO DAILY 30 Days #30 tablet 01/15/17 [Rx] Patient Handouts: Furosemide tablets, Lisinopril tablets, Heart Failure, Easy- to-Read, Hypertension Referrals: Darren Murphy MD [Physician] - 01/17/17 12:00 pm - Discharge Summary/Plan Comment DC Time >30 min.: No Discharge Summary/Plan Comment: Admission date January 05, 2017 Discharge date January 08, 2017 Admission diagnosis #1. CHF exacerbation with shortness of breath #2. Hypertension #3. Type 2 diabetes #4. History of Obstructive sleep apnea #5. Recent 40 pound weight gain #6. History of anxiety Discharge diagnosis #1. CHF exacerbation that is stable and improved #2. Hypertension #3. Type 2 diabetes, obstructive sleep apnea, anxiety #4. Echocardiogram indicating an ejection fraction of 55% and hypertrophic cardiomyopathy. Hospital course: 51-year-old male that presented to the emergency department on 05 January complaining of shortness of breath. This patient reported that he stopped taking all of his antihypertensives and diabetes medications for over a month prior to arrival to the emergency room. He also reported a 40 pound weight gain since then. He was evaluated by the ER and the hospitalist who deemed that he needed to be admitted for CHF exacerbation. He was then admitted for observation. He is started on IV Lasix 40 mg twice a day. Daily reports of ins and outs indicated a adequate diuresis. He was increased to 40 mg IV 3 times a day the day before discharge. Patient's pedal edema along with his shortness of breath improved greatly with this. An echocardiogram was also obtained indicating hypertrophic cardiomyopathy with an ejection fraction of 55% . Patient had an episode of anxiety responded well to 1 mg of Ativan. He requested this again the next day which was declined. He is able to do well without it. He also complained of a headache that same day he had the anxiety, which responded well to a migraine cocktail. Patient also had significant hypertension with blood pressures ranging in the 190s systolic. This responded well to hydralazine 10 mg IV. He was then started on 20 mg of lisinopril. At the time of discharge, blood pressure was on the upper limits of normal. Discharge medications Lisinopril 20 mg daily Lasix 40 mg twice a day 7 days Lasix 40 mg daily thereafter Patient to follow-up with his primary care provider Dr. Murphy within 1 week. Patient agrees to the plan. Patient was advised to return if he expresses any chest pain, shortness of breath, worsening leg swelling. - Patient Data Vitals - Most Recent: Last Vital Signs Temp 36.1 C 01/08/17 08:00 Pulse 86 01/08/17 08:00 Resp 16 01/08/17 08:00 BP 130/78 01/08/17 08:21 Pulse Ox 93 L 01/08/17 08:00 Weight - Most Recent: 159.029 kg I&O - Last 24 hours: Intake & Output 01/07/17 01/08/17 01/08/17 22:59 06:59 14:59 Intake Total 2130 1100 540 Output Total 3100 1675 1150 Balance -970 -575 -610 Lab Results - Last 24 hrs: Laboratory Results - last 24 hr 01/07/17 01/07/17 01/08/17 Range/Units 13:04 16:05 06:11 Sodium (136-146) mmol/L Potassium (3.5-5.1) mmol/L Chloride (98-110) mmol/L Carbon Dioxide (21-31) mmol/L BUN (6.0-23.0) mg/dL Creatinine (0.6-1.5) mg/dL Est Cr Clr Drug Dosing mL/min Estimated GFR (MDRD) ml/min Glucose (60-110) mg/dL POC Glucose 123 H 100 100 (60-110) mg/dL Calcium (8.8-10.8) mg/dL 01/08/17 Range/Units 08:49 Sodium 138 (136-146) mmol/L Potassium 4.0 (3.5-5.1) mmol/L Chloride 100 (98-110) mmol/L Carbon Dioxide 29 (21-31) mmol/L BUN 24 H (6.0-23.0) mg/dL Creatinine 1.4 (0.6-1.5) mg/dL Est Cr Clr Drug Dosing 63.13 mL/min Estimated GFR (MDRD) 53.6 ml/min Glucose 168 H (60-110) mg/dL POC Glucose (60-110) mg/dL Calcium 9.2 (8.8-10.8) mg/dL Med Orders - Current: Current Medications Discontinued Medications Acetaminophen (Tylenol Extra Strength) 1,000 mg PO ONETIME ONE Stop: 01/05/17 11:34 Last Admin: 01/05/17 11:36 Dose: 1,000 mg Acetaminophen (Tylenol) 650 mg PO Q4H PRN PRN Reason: Pain Last Admin: 01/08/17 08:22 Dose: 650 mg Aspirin (Aspirin) 324 mg PO ONETIME ONE Stop: 01/05/17 10:17 Last Admin: 01/05/17 10:42 Dose: 324 mg Diphenhydramine HCl (Benadryl) 25 mg IVPUSH ONETIME ONE Stop: 01/06/17 17:31 Last Admin: 01/06/17 17:56 Dose: 25 mg Enoxaparin Sodium (Lovenox) 40 mg SUBCUT DAILY [facility] Last Admin: 01/08/17 08:40 Dose: 40 mg Furosemide (Lasix) 40 mg IVPUSH NOW ONE Stop: 01/05/17 13:05 Last Admin: 01/05/17 13:13 Dose: 40 mg Furosemide (Lasix) 40 mg IVPUSH BID [facility] Last Admin: 01/07/17 08:48 Dose: 40 mg Furosemide (Lasix) 40 mg IVPUSH TID [facility] Furosemide (Lasix) 40 mg IVPUSH 0600,1200,1600 JESSI Stop: 01/07/17 13:00 Furosemide (Lasix) 40 mg IVPUSH 0600,1300,1600 [facility] Last Admin: 01/08/17 05:02 Dose: 40 mg Hydralazine HCl (Apresoline) 10 mg IVPUSH ONETIME ONE Stop: 01/06/17 14:19 Last Admin: 01/06/17 14:38 Dose: 10 mg Hydralazine HCl (Apresoline) 10 mg IVPUSH ONETIME ONE Stop: 01/06/17 16:33 Last Admin: 01/06/17 16:43 Dose: 10 mg Prochlorperazine Edisylate 10 (mg/ Sodium Chloride) 52 mls @ 150 mls/hr IV ONETIME ONE Stop: 01/06/17 17:50 Last Admin: 01/06/17 18:20 Dose: 150 mls/hr Insulin Aspart (Novolog) 0 unit SUBCUT TIDAC JESSI PRN Reason: Protocol Last Admin: 01/08/17 06:30 Dose: Not Given Iopamidol (Isovue Multipack-370 (76%)) 50 ml IVPUSH ONETIME STA Stop: 01/05/17 12:27 Last Admin: 01/05/17 12:27 Dose: 50 ml Ketorolac Tromethamine (Toradol) 30 mg IVPUSH ONETIME ONE Stop: 01/06/17 17:31 Last Admin: 01/06/17 17:55 Dose: 30 mg Lisinopril (Prinivil) 20 mg PO DAILY [facility] Lisinopril (Prinivil) 20 mg PO DAILY [facility] Last Admin: 01/08/17 08:21 Dose: 20 mg Lorazepam (Ativan) 1 mg IVPUSH ONETIME ONE Stop: 01/06/17 19:34 Last Admin: 01/06/17 20:13 Dose: 1 mg Nitroglycerin (Nitro-Bid 2%) 1 gm TOP ONETIME ONE Stop: 01/05/17 10:17 Last Admin: 01/05/17 10:41 Dose: 1 gm Sodium Chloride (Saline Flush) 10 ml FLUSH ASDIRECTED PRN PRN Reason: Keep Vein Open Last Admin: 01/05/17 11:34 Dose: 10 ml Sodium Chloride (Saline Flush) 2.5 ml FLUSH ASDIRECTED PRN PRN Reason: Keep Vein Open Last Admin: 01/05/17 11:35 Dose: 2.5 ml *Q Meaningful Use (DIS) - VTE *Q VTE Criteria *Q: - Stroke *Q Stroke Criteria *Q: - AMI *Q AMI Criteria *Q:
--- NOTE | 2017-01-10 18:03 | ECHO ---
The echocardiogram report can be seen in this patient's EMR (electronic medical records) in the Reports section. The report has also been scanned into PACS and can be seen there. FARRAH
== END 2017-01-08 10:35 | disposition home or self-care (01) | DRG 293 ==
LOC: MW.ED 09:50 → MW.MS 13:05
PROVIDERS: ADMIT Internal Medicine; ATTEND Internal Medicine
DX: I11.0 Hypertensive heart disease with heart failure (principal); I50.9 Heart failure, unspecified; E11.9 Type 2 diabetes mellitus without complications; E78.5 Hyperlipidemia, unspecified; G47.33 Obstructive sleep apnea (adult) (pediatric); F41.9 Anxiety disorder, unspecified; Z87.891 Personal history of nicotine dependence; Z79.899 Other long term (current) drug therapy
CPT/HCPCS: 36415; 71010; 71010-26; 71275; 71275-26; 80048; 80053; 81001; 82962; 83880; 84484; 85025; 85610; 93005; 93306; 96374; 99284; 99285-25; A9270-GY; J0360; J0780; J1200; J1650; J1885; J1940; J2060; J7050; Q9967

== ENCOUNTER 2017-05-15 10:33 | Observation (INO) | payer OTHER ==
[2017-05-15] MEDS ORDERED: Aspirin 81 MG Tab.Chew PO ONE (10:34)
[2017-05-15] MEDS ORDERED: Sodium Chloride 0.9% 2.5 ML Syringe FLUSH PRN (10:34)
[2017-05-15] MEDS ORDERED: Sodium Chloride 0.9% 10 ML Syringe FLUSH PRN (10:34)
--- NOTE | 2017-05-15 10:45 | EDM.PDOC ---
ED HPI GENERAL MEDICAL PROBLEM - General Chief Complaint: Chest Pain Stated Complaint: CHEST PAIN Time Seen by Provider: 05/15/17 10:34 Source of Information: Reports: Patient History Limitations: Reports: No Limitations - History of Present Illness INITIAL COMMENTS - FREE TEXT/NARRATIVE: HISTORY AND PHYSICAL: History of present illness: Patient is a 52-year-old male who presents to the emergency room with complaints of midsternal chest pain 1 week. He says during this time he has had increased shortness of breath and has not been able to sleep well. Describes the chest pain as a constant pressure; which does not improve nor is relieved by rest or activity. He reports that he had similar symptoms January 2017, which he was admitted for at that time and diagnosed with CHF. He reports he does have prescribed medications for these and "periodically takes them". His not been taking his Lasix, as he reports he has been out of this for several weeks. He denies any headache, blurred vision, fever or chills. He denies any diaphoresis, abdominal pain, nausea, vomiting or diarrhea/constipation. No history of tobacco use. Denies any drug or alcohol abuse. History of hypertension, hyperlipidemia, diabetes, CHF and obstructive sleep apnea. Believes he has a family history of heart disease, but is unsure of specifics. Review of systems: As per history of present illness and below otherwise all systems reviewed and negative. Past medical history: As per history of present illness and as reviewed below otherwise noncontributory. Surgical history: As per history of present illness and as reviewed below otherwise noncontributory. Social history: No reported history of drug or alcohol abuse. Family history: As per history of present illness and as reviewed below otherwise noncontributory. Physical exam: Gen.: Well-developed well-nourished 52-year-old male. Alert and oriented. Nontoxic appearing and in no acute distress. HEENT: Atraumatic, normocephalic, pupils reactive, negative for conjunctival pallor or scleral icterus, mucous membranes moist, throat clear, neck supple, nontender, trachea midline. Lungs: Clear to auscultation, breath sounds equal bilaterally, chest nontender. Heart: S1S2, regular, negative for clicks, rubs, or JVD. Abdomen: Soft, obese, nontender. Negative for masses. Negative for costovertebral tenderness. Pelvis: Stable nontender. Genitourinary: Deferred. Rectal: Deferred. Extremities: Atraumatic, moves all extremities per self without difficulty or deficits, negative for cords or calf pain. Neurovascular unremarkable. Neuro: Awake, alert, oriented. Cranial nerves II through XII unremarkable. Cerebellum unremarkable. Motor and sensory unremarkable throughout. Exam nonfocal. Patient's blood pressure is 206/131, when I asked the patient if he had been taking his medications he said he has been taking them infrequently. He states that his blood pressure is "always high" stating he usually runs in the 200s over 100s. Cardiac workup will be done at this time. 1100- BP is currently 186/114, discussed with the patient that if his labs are normal and addition will be offered at this time. He is agreeable to staying for observation admission. 1115- Chest pain is alleviated after receiving nitro SL. Vitals have improved. WBC 12.18, AST 47, ALT 92. Chest x-ray normal with no pneumonia or infiltrate. 1200- Nitro paste applied. Dr Adamson was consulted on this case. Agreeable to keeping him as observation with telemetry. Patient is aware and voices understanding. He is agreeable to plan of care. Diagnostics: CBC, CMP, troponin, EKG, chest x-ray, BNP Therapeutics: Aspirin, nitroglycerin 3 nitroglycerin paste, morphine 4mg PRN x 1 dose Impression: Chest pain r/o NC Hypertension Plan: Observation admission to Med/Surg with telemetry Definitive disposition and diagnosis as appropriate pending reevaluation and review of above. Duration: Week(s): Location: Reports: Chest Improves with: Reports: None Worsens with: Reports: None Associated Symptoms: Reports: Chest Pain, Shortness of Breath. Denies: Confusion, Cough, cough w sputum, Diaphoresis, Fever/Chills, Headaches, Loss of Appetite, Malaise, Nausea/Vomiting, Rash, Seizure, Syncope, Weakness chest Pain Score (Numeric/FACES): 5 - Related Data Allergies Allergy/AdvReac Type Severity Reaction Status Date / Time No Known Allergies Allergy Verified 05/15/17 10:34 Home Meds: Home Meds Cholesterol Meds 01/05/17 [History] Escitalopram Oxalate 20 mg PO DAILY 01/07/17 [History] Furosemide [Lasix] 40 mg PO BID 7 Days #14 tablet 01/08/17 [Rx] Lisinopril [Prinivil] 20 mg PO DAILY 30 Days #60 tablet 01/08/17 [Rx] Furosemide [Lasix] 40 mg PO DAILY 30 Days #30 tablet 01/15/17 [Rx] Past Medical History HEENT History: Reports: None Cardiovascular History: Reports: High Cholesterol, Hypertension Respiratory History: Reports: Bronchitis, Recurrent Gastrointestinal History: Reports: None Genitourinary History: Reports: None Musculoskeletal History: Reports: None Neurological History: Reports: None Psychiatric History: Reports: Anxiety, Depression Endocrine/Metabolic History: Reports: Diabetes, Type II Hematologic History: Reports: None Immunologic History: Reports: None Oncologic (Cancer) History: Reports: None Dermatologic History: Reports: None - Infectious Disease History Infectious Disease History: Reports: Chicken Pox, Measles, Mumps - Past Surgical History Musculoskeletal Surgical History: Reports: Other (See Below) Other Musculoskeletal Surgeries/Procedures:: surgery to knees & foot Social & Family History - Family History Family Medical History: Noncontributory - Tobacco Use Smoking Status *Q: Never Smoker Used Tobacco, but Quit: Yes Month/Year Tobacco Last Used: 1985 Second Hand Smoke Exposure: No - Caffeine Use Caffeine Use: Reports: Coffee - Recreational Drug Use Recreational Drug Use: No ED ROS GENERAL - Review of Systems Review Of Systems: ROS reveals no pertinent complaints other than HPI. ED EXAM, GENERAL - Physical Exam Exam: See Below (See dictation) EKG INTERPRETATION EKG Date: 05/15/17 Time: 10:38 Rhythm: NSR Rate (Beats/Min): 87 Comparison: No Change Course - Vital Signs Last Recorded V/S: Last Vital Signs Temp 98.0 F 05/15/17 10:39 Pulse 80 05/15/17 10:39 Resp 24 H 05/15/17 10:39 BP 150/103 H 05/15/17 11:09 Pulse Ox 93 L 05/15/17 11:11 - Orders/Labs/Meds Orders: Active Orders 24 hr Category Date Time Status Patient Status [ADT] Stat ADT 05/15/17 12:09 Active EKG Documentation Completion [RC] STAT Care 05/15/17 10:34 Active Sodium Chloride 0.9% [Saline Flush] Med 05/15/17 10:34 Active 10 ml FLUSH ASDIRECTED PRN Sodium Chloride 0.9% [Saline Flush] Med 05/15/17 10:34 Active 2.5 ml FLUSH ASDIRECTED PRN Saline Lock Insert [OM.PC] Stat Oth 05/15/17 10:34 Ordered Medication Orders Sodium Chloride (Saline Flush) 10 ml FLUSH ASDIRECTED PRN PRN Reason: Keep Vein Open Sodium Chloride (Saline Flush) 2.5 ml FLUSH ASDIRECTED PRN PRN Reason: Keep Vein Open Labs: Laboratory Tests 05/15/17 05/15/17 05/15/17 Range/Units 10:58 10:58 10:58 WBC 12.18 H (4.0-11.0) K/uL RBC 6.03 H (4.50-5.90) M/uL Hgb 18.5 H (13.0-17.0) g/dL Hct 55.6 H (38.0-50.0) % MCV 92.2 (80.0-98.0) fL MCH 30.7 (27.0-32.0) pg MCHC 33.3 (31.0-37.0) g/dL RDW Std Deviation 51.9 (28.0-62.0) fl RDW Coeff of Tita 15 (11.0-15.0) % Plt Count 227 (150-400) K/uL MPV 9.80 (7.40-12.00) fL Neut % (Auto) 62.2 (48.0-80.0) % Lymph % (Auto) 18.6 (16.0-40.0) % [place] % (Auto) 12.2 (0.0-15.0) % Eos % (Auto) 6.4 (0.0-7.0) % Baso % (Auto) 0.6 (0.0-1.5) % Neut # (Auto) 7.6 H (1.4-5.7) K/uL Lymph # (Auto) 2.3 (0.6-2.4) K/uL [place] # (Auto) 1.5 H (0.0-0.8) K/uL Eos # (Auto) 0.8 H (0.0-0.7) K/uL Baso # (Auto) 0.1 (0.0-0.1) K/uL Nucleated RBC % 0.0 /100WBC Nucleated RBCs # 0 K/uL Sodium 142 (136-148) mmol/L Potassium 4.9 (3.5-5.1) mmol/L Chloride 105 (98-107) mmol/L Carbon Dioxide 30.4 (21.0-32.0) mmol/L BUN 10 (7.0-18.0) mg/dL Creatinine 1.4 H (0.8-1.3) mg/dL Est Cr Clr Drug Dosing 62.42 mL/min Estimated GFR (MDRD) 53.4 ml/min Glucose 98 (74-106) mg/dL Calcium 9.5 (8.5-10.1) mg/dL Total Bilirubin 0.5 (0.2-1.0) mg/dL AST 47 H (15-37) IU/L ALT 92 H (14-63) IU/L Alkaline Phosphatase 85 (46-116) U/L Troponin I < 0.050 (0.000-0.056) ng/mL B-Natriuretic Peptide < 15 (<100) PG/ML Total Protein 7.5 (6.4-8.2) g/dL Albumin 3.9 (3.4-5.0) g/dL Globulin 3.6 H (2.0-3.5) g/dL Albumin/Globulin Ratio 1.1 L (1.3-2.8) Meds: Medications Generic Name Dose Route Start Last Admin Trade Name Aydenq PRN Reason Stop Dose Admin Sodium Chloride 10 ml 05/15/17 10:34 Saline Flush FLUSH ASDIRECTED PRN Keep Vein Open Sodium Chloride 2.5 ml 05/15/17 10:34 Saline Flush FLUSH ASDIRECTED PRN Keep Vein Open Discontinued Medications Generic Name Dose Route Start Last Admin Trade Name Freq PRN Reason Stop Dose Admin Aspirin 324 mg 05/15/17 10:34 05/15/17 10:57 Aspirin PO 05/15/17 10:35 324 mg ONETIME ONE Administration Morphine Sulfate 4 mg 05/15/17 11:49 Morphine IVPUSH 05/15/17 11:50 ONETIME ONE Nitroglycerin 0.4 mg 05/15/17 10:34 05/15/17 11:09 Nitrostat SL 0.4 mg Q5M PRN Administration Chest Pain Nitroglycerin 1 gm 05/15/17 12:09 Nitro-Bid 2% TOP 05/15/17 12:10 ONETIME ONE Departure - Departure Time of Disposition: 12:21 Disposition: Refer to Observation Clinical Impression: Chest pain, rule out acute myocardial infarction Hypertension Qualifiers: Hypertension type: unspecified Qualified Code(s): I10 - Essential (primary) hypertension Referrals: Darren Murphy MD [Primary Care Provider] - Forms: ED Department Discharge - My Orders Last 24 Hours: My Active Orders 05/15/17 10:34 EKG Documentation Completion [RC] STAT Sodium Chloride 0.9% [Saline Flush] 10 ml FLUSH ASDIRECTED PRN Sodium Chloride 0.9% [Saline Flush] 2.5 ml FLUSH ASDIRECTED PRN Saline Lock Insert [OM.PC] Stat 05/15/17 12:09 Patient Status [ADT] Stat - Assessment/Plan Last 24 Hours: My Active Orders 05/15/17 10:34 EKG Documentation Completion [RC] STAT Sodium Chloride 0.9% [Saline Flush] 10 ml FLUSH ASDIRECTED PRN Sodium Chloride 0.9% [Saline Flush] 2.5 ml FLUSH ASDIRECTED PRN Saline Lock Insert [OM.PC] Stat 05/15/17 12:09 Patient Status [ADT] Stat
[2017-05-15] MEDS: Nitroglycerin 0.4 MG Tab.SL SL PRN ×3 (10:59→11:09)
[2017-05-15 11:31] LABS: CHLORIDE,CL 105 mmol/L (98-107); SODIUM,NA 142 mmol/L (136-148)
[2017-05-15] MEDS ORDERED: Morphine 4 MG/ML Syringe IVPUSH ONE (11:49)
[2017-05-15] MEDS ORDERED: Nitroglycerin 2% Oint 1 GM UD Packet TOP ONE (12:09)
--- NOTE | 2017-05-15 12:19 | CR ---
EXAMINATION: Portable chest radiograph. HISTORY: Chest pain. FINDINGS: The trachea is midline. The cardiomediastinal silhouette is within normal limits. No pulmonary infilt rates, effusions or pneumothorax. Osseous structures appear unremarkable. IMPRESSION: No acute cardiopulmonary process.
--- NOTE | 2017-05-15 13:04 | PCM.HP ---
H&P History of Present Illness - General Date of Service: 05/15/17 Admit Problem/Dx: Admission Diagnosis/Problem Admission Diagnosis/Problem Chest pain, rule out acute myocardial infarction Source of Information: Patient, Family (mother at bedside) History Limitations: Reports: No Limitations - History of Present Illness Initial Comments - Free Text/Narative: This 52 year old male with pmh of morbid obesity, ANGIE with CPAP, CHF with preserved EF, HTN, and DM type 2 presented to the ED with midsternal chest pain and dyspnea that has been going on for approximately 4 days. 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 He went to the [facility] today with these concerns and they sent him to the ED. He reports he has been out of his Lasix for almost 2 weeks now and never thought to call in and get it refilled. He reports he has not been sleeping well at night, waking up short of breath and has noticed water retention in his legs. He also reports not using his CPAP as regularly recently either. He denies fever, URI or abdominal pain. No urinary symptoms and no black or bloody BMs. Denies excessive sodium intake, but reports drinking upwards of 104 oz of Mountain Dew daily. In the ED slight leukocytosis noted, 12,000, Hgb 18.5 hct 55.6, BUN 10 and Cr 1.4, which is at baseline. ALT 47 and AST 92. Troponin negative. BNP <15. CXR negative for acute cardiopulmonary process, but to my observation some pulmonary congestion is noted. EKG SR rates in the 80s, no signs of acute ischemic changes. He will be admitted with suspected CHF exacerbation and chest pain. PCP, [facility]. chest Pain Score (Numeric/FACES): 5 - Related Data Allergies/Adverse Reactions: Allergies Allergy/AdvReac Type Severity Reaction Status Date / Time No Known Allergies Allergy Verified 05/15/17 10:34 Home Medications: Home Meds Cholesterol Meds 01/05/17 [History] Escitalopram Oxalate 20 mg PO DAILY 01/07/17 [History] Furosemide [Lasix] 40 mg PO BID 7 Days #14 tablet 01/08/17 [Rx] Lisinopril [Prinivil] 20 mg PO DAILY 30 Days #60 tablet 01/08/17 [Rx] Furosemide [Lasix] 40 mg PO DAILY 30 Days #30 tablet 01/15/17 [Rx] Past Medical History HEENT History: Reports: None Cardiovascular History: Reports: High Cholesterol, Hypertension, SOB on Exertion. Denies: Afib, Blood Clots/VTE/DVT, CAD, MO Respiratory History: Reports: Bronchitis, Recurrent, Sleep Apnea (CPAP), SOB Gastrointestinal History: Reports: None. Denies: GERD, GI Bleed Genitourinary History: Reports: None. Denies: Chronic Renal Insuffiency Musculoskeletal History: Reports: None Neurological History: Reports: None. Denies: CVA, MS, Seizure, TIA Psychiatric History: Reports: Anxiety, Depression Endocrine/Metabolic History: Reports: Diabetes, Type II (currently not taking any medications.) Hematologic History: Reports: None Immunologic History: Reports: None Oncologic (Cancer) History: Reports: None Dermatologic History: Reports: None - Infectious Disease History Infectious Disease History: Reports: Chicken Pox, Measles, Mumps - Past Surgical History Musculoskeletal Surgical History: Reports: Other (See Below) Other Musculoskeletal Surgeries/Procedures:: surgery to knees & foot and shoulder Social & Family History - Family History Family Medical History: Noncontributory - Tobacco Use Smoking Status *Q: Never Smoker Used Tobacco, but Quit: Yes Month/Year Tobacco Last Used: 1985 Second Hand Smoke Exposure: No - Caffeine Use Caffeine Use: Reports: Coffee, Soda (upwards of 104 oz Mountain Dew daily) - Alcohol Use Alcohol Use History: No - Recreational Drug Use Recreational Drug Use: No - Living Situation & Occupation Living situation: Reports: Single Occupation: Employed H&P Review of Systems - Review of Systems: Review Of Systems: See Below General: Reports: No Symptoms. Denies: Fever, Chills, Malaise, Weakness HEENT: Reports: No Symptoms. Denies: Headaches, Hearing Changes, Sinus Congestion, Sore Throat, Vertigo Pulmonary: Reports: Shortness of Breath. Denies: Wheezing, Pleuritic Chest Pain , Cough, Sputum Cardiovascular: Reports: Chest Pain (currently gone now.), Dyspnea on Exertion, Orthopnea, Edema. Denies: Palpitations, Syncope Gastrointestinal: Reports: No Symptoms. Denies: Abdominal Pain, Black Stool, Bloody Stool, Nausea, Vomiting Genitourinary: Reports: No Symptoms. Denies: Dysuria, Frequency, Burning Musculoskeletal: Reports: No Symptoms. Denies: Neck Pain Skin: Reports: No Symptoms Psychiatric: Reports: No Symptoms. Denies: Confusion Neurological: Reports: No Symptoms. Denies: Headache, Tingling, Change in Speech Hematologic/Lymphatic: Reports: No Symptoms Immunologic: Reports: No Symptoms Exam - Exam Exam: See Below - Vital Signs Vital Signs: Last Vital Signs Temp 98.0 F 05/15/17 10:39 Pulse 96 05/15/17 12:51 Resp 18 05/15/17 12:51 BP 191/121 H 05/15/17 12:51 Pulse Ox 94 L 05/15/17 12:51 Weight: 168.6 kg - Exam Quality Assessment: Supplemental Oxygen, DVT Prophylaxis General: Alert, Oriented, Cooperative HEENT: Conjunctiva Clear, Mucosa Moist & [place] Neck: Supple, JVD Lungs: Normal Respiratory Effort, Decreased Breath Sounds (bilateral bases, with fine crackles) Cardiovascular: Regular Rate, Regular Rhythm GI/Abdominal Exam: Normal Bowel Sounds, Soft, Non-Tender, No Organomegaly, No Distention, No Abnormal Bruit, No Mass, Pelvis Stable, Other (obese abdomen alters assessment) Extremities: Normal Inspection, Normal Range of Motion, Non-Tender, No Pedal Edema, Normal Capillary Refill, Pedal Edema (+1 pitting edema to feet and lower legs.) Neuro Extensive - Mental Status: Alert, Oriented x3, Normal Mood/Affect, Normal Cognition Neuro Extensive - Motor, Sensory, Reflexes: CN II-XII Intact, Normal Gait, Normal Reflexes Psychiatric: Alert, Normal Affect, Normal Mood - Patient Data Lab Results Last 24 hrs: Laboratory Results - last 24 hr 05/15/17 05/15/17 05/15/17 Range/Units 10:58 10:58 10:58 WBC 12.18 H (4.0-11.0) K/uL RBC 6.03 H (4.50-5.90) M/uL Hgb 18.5 H (13.0-17.0) g/dL Hct 55.6 H (38.0-50.0) % MCV 92.2 (80.0-98.0) fL MCH 30.7 (27.0-32.0) pg MCHC 33.3 (31.0-37.0) g/dL RDW Std Deviation 51.9 (28.0-62.0) fl RDW Coeff of Tita 15 (11.0-15.0) % Plt Count 227 (150-400) K/uL MPV 9.80 (7.40-12.00) fL Neut % (Auto) 62.2 (48.0-80.0) % Lymph % (Auto) 18.6 (16.0-40.0) % [place] % (Auto) 12.2 (0.0-15.0) % Eos % (Auto) 6.4 (0.0-7.0) % Baso % (Auto) 0.6 (0.0-1.5) % Neut # (Auto) 7.6 H (1.4-5.7) K/uL Lymph # (Auto) 2.3 (0.6-2.4) K/uL [place] # (Auto) 1.5 H (0.0-0.8) K/uL Eos # (Auto) 0.8 H (0.0-0.7) K/uL Baso # (Auto) 0.1 (0.0-0.1) K/uL Nucleated RBC % 0.0 /100WBC Nucleated RBCs # 0 K/uL Sodium 142 (136-148) mmol/L Potassium 4.9 (3.5-5.1) mmol/L Chloride 105 (98-107) mmol/L Carbon Dioxide 30.4 (21.0-32.0) mmol/L BUN 10 (7.0-18.0) mg/dL Creatinine 1.4 H (0.8-1.3) mg/dL Est Cr Clr Drug Dosing 62.42 mL/min Estimated GFR (MDRD) 53.4 ml/min Glucose 98 (74-106) mg/dL Calcium 9.5 (8.5-10.1) mg/dL Total Bilirubin 0.5 (0.2-1.0) mg/dL AST 47 H (15-37) IU/L ALT 92 H (14-63) IU/L Alkaline Phosphatase 85 (46-116) U/L Troponin I < 0.050 (0.000-0.056) ng/mL B-Natriuretic Peptide < 15 (<100) PG/ML Total Protein 7.5 (6.4-8.2) g/dL Albumin 3.9 (3.4-5.0) g/dL Globulin 3.6 H (2.0-3.5) g/dL Albumin/Globulin Ratio 1.1 L (1.3-2.8) Result Diagrams: 05/15/17 10:58 05/15/17 10:58 EKG INTERPRETATION EKG Date: 05/15/17 Rhythm: NSR Rate (Beats/Min): 80 QRS: Normal ST-T: Normal QT: Normal *Q Meaningful Use (ADM) - VTE *Q VTE Criteria *Q: - Stroke *Q Stroke Criteria *Q: - AMI *Q AMI Criteria *Q: - Problem List (1) Chest pain, rule out acute myocardial infarction SNOMED Code(s): 58073525 ICD Code: R07.9 - CHEST PAIN, UNSPECIFIED Status: Acute Current Visit: Yes (2) Dyspnea SNOMED Code(s): 418520576 ICD Code: R06.00 - DYSPNEA, UNSPECIFIED Status: Acute Current Visit: No Qualifiers: Dyspnea type: unspecified Qualified Code(s): R06.00 - Dyspnea, unspecified (3) CHF (congestive heart failure) SNOMED Code(s): 27945444 ICD Code: I50.9 - HEART FAILURE, UNSPECIFIED Status: Acute Current Visit : Yes Qualifiers: Heart failure type: diastolic Heart failure chronicity: acute on chronic Qualified Code(s): I50.33 - Acute on chronic diastolic (congestive) heart failure (4) Elevated transaminase level SNOMED Code(s): 045666047 ICD Code: R74.0 - NONSPEC ELEV OF LEVELS OF TRANSAMNS & LACTIC ACID DEHYDRGNSE Status: Acute Current Visit: Yes (5) ANGIE on CPAP SNOMED Code(s): 27214179 ICD Code: G47.33 - OBSTRUCTIVE SLEEP APNEA (ADULT) (PEDIATRIC); Z99.89 - DEPENDENCE ON OTHER ENABLING MACHINES AND DEVICES Status: Chronic Current Visit: Yes (6) Morbid obesity with BMI of 50.0-59.9, adult SNOMED Code(s): 216465621 ICD Code: E66.01 - MORBID (SEVERE) OBESITY DUE TO EXCESS CALORIES; Z68.43 - BODY MASS INDEX (BMI) 50-59.9 , ADULT Status: Chronic Current Visit: Yes (7) DM type 2 (diabetes mellitus, type 2) SNOMED Code(s): 40822599 ICD Code: E11.9 - TYPE 2 DIABETES MELLITUS WITHOUT COMPLICATIONS Status: Chronic Current Visit: Yes Qualifiers: Diabetes mellitus complication status: without complication Diabetes mellitus alf insulin use: without medical terminologist use Qualified Code(s): E11.9 - Type 2 diabetes mellitus without complications (8) Hypertension SNOMED Code(s): 92610467 ICD Code: I10 - ESSENTIAL (PRIMARY) HYPERTENSION Status: Chronic Current Visit: Yes Qualifiers: Hypertension type: essential hypertension Qualified Code(s): I10 - Essential (primary) hypertension Problem List Initiated/Reviewed/Updated: Yes Orders Last 24hrs: Active Orders 24 hr Category Date Time Status Patient Status [ADT] Stat ADT 05/15/17 12:09 Active EKG Documentation Completion [RC] STAT Care 05/15/17 10:34 Active Sodium Chloride 0.9% [Saline Flush] Med 05/15/17 10:34 Active 10 ml FLUSH ASDIRECTED PRN Sodium Chloride 0.9% [Saline Flush] Med 05/15/17 10:34 Active 2.5 ml FLUSH ASDIRECTED PRN Saline Lock Insert [OM.PC] Stat Oth 05/15/17 10:34 Ordered Medication Orders Sodium Chloride (Saline Flush) 10 ml FLUSH ASDIRECTED PRN PRN Reason: Keep Vein Open Sodium Chloride (Saline Flush) 2.5 ml FLUSH ASDIRECTED PRN PRN Reason: Keep Vein Open Assessment/Plan Comment:: This 52 year old male admitted with suspected CHF exacerbation and chest pain. 1. CHF exacerbation: Secondary to non-compliance with medications. ECHO 01/2017 reveals preserved EF 55-60% and borderline left ventricular hypertrophy otherwise it was poor study due to body habitus. WIll give Lasix 40 mg IV now and re-evaluate this evening. May need another dose IV then restart home dosing. Arrange follow up with Cardiology. He reports he saw Cardiology at [facility] after last admission in January, will obtain records. 2. Chest pain: Trend troponins and monitor on telemetry. No further chest pain after Nitro x 3 in ED. 3. DM type 2: Obtain A1c, diet control. 4. HTN: Continue Lisinopril. Elevated upon admission, monitor. 5. ANGIE: Encouraged to continue to use CPAP at night. Hgb/Hct elevated likely secondary to ANGIE induced hypoxia 6. Elevated ALT/AST: Will obtain Hepatitis panel and RUQ ultrasound. may be related to venous congestion and fatty infiltration of liver due to obesity and DM. VTE prophylaxis: Heparin Dispo: 1-2 days pending improvement.
[2017-05-15] MEDS ORDERED: Ondansetron 4 MG/2 ML SDV IVPUSH PRN (13:24)
[2017-05-15] MEDS ORDERED: Furosemide 40 MG/4 ML VIAL IVPUSH ONE (13:31)
[2017-05-15] MEDS: Acetaminophen 325 MG Tab PO PRN ×2 (15:14→22:13)
--- NOTE | 2017-05-15 16:11 | US ---
EXAMINATION: Right upper quadrant ultrasound HISTORY: Elevated liver enzymes COMPARISON: None TECHNIQUE: Grayscale and color Doppler images obtained of the right upper quadrant. FINDINGS: The pancreas is not well characterized. The liver is moderately increased in generalized ec hotexture without a focal hepatic mass. The gallbladder wall thickness is normal. No pericholecystic fluid or shadowing gallstones. The common bile duct measures 4 mm. The right kidney measures at least 12.5 cm [id number] without evidence of hydronephrosis. Sonographic Keith sign is negative. IMPRESSION: 1. Moderate fatty infiltration of the liver.
[2017-05-15] MEDS: Heparin Sodium 5,000 Units/ML Vial SUBCUT SCH (20:07)
[2017-05-15] MEDS ORDERED: Temazepam 15 MG Cap PO PRN (22:32)
[2017-05-16] MEDS ORDERED: Furosemide 40 MG/4 ML VIAL IVPUSH ONE (07:38)
[2017-05-16] MEDS: Heparin Sodium 5,000 Units/ML Vial SUBCUT SCH (08:09)
[2017-05-16] MEDS ORDERED: Metoprolol Succinate 25 MG Tab.ER PO SCH (09:00)
[2017-05-16] MEDS ORDERED: Escitalopram 10 MG Tab PO SCH (09:00)
[2017-05-16] MEDS ORDERED: Lisinopril 10 MG Tab PO SCH ×2 (09:00)
[2017-05-16] MEDS ORDERED: Aspirin 81 MG Tab.Chew PO SCH (09:00)
--- NOTE | 2017-05-16 13:37 | PCM.DCSUM1 ---
Discharge Summary - Hospital Course Brief History: This 52 year old male with pmh of morbid obesity, ANGIE with CPAP, CHF with preserved EF, HTN, and DM type 2 presented to the ED with midsternal chest pain and dyspnea that has been going on for approximately 4 days. 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 He went to the [facility] today with these concerns and they sent him to the ED. He reports he has been out of his Lasix for almost 2 weeks now and never thought to call in and get it refilled. He reports he has not been sleeping well at night, waking up short of breath and has noticed water retention in his legs. He also reports not using his CPAP as regularly recently either. He denies fever, URI or abdominal pain. No urinary symptoms and no black or bloody BMs. Denies excessive sodium intake, but reports drinking upwards of 104 oz of Mountain Dew daily. In the ED slight leukocytosis noted, 12,000, Hgb 18.5 hct 55.6, BUN 10 and Cr 1.4, which is at baseline. ALT 47 and AST 92. Troponin negative. BNP < 15. CXR negative for acute cardiopulmonary process, but to my observation some pulmonary congestion is noted. EKG SR rates in the 80s, no signs of acute ischemic changes. He will be admitted with suspected CHF exacerbation and chest pain. PCP, [facility]. - Discharge Data Discharge Date: 05/16/17 Discharge Disposition: Home, Self-Care 01 Condition: Good - Discharge Diagnosis/Problem(s) (1) Chest pain, rule out acute myocardial infarction SNOMED Code(s): 23964654 ICD Code: R07.9 - CHEST PAIN, UNSPECIFIED Status: Acute (2) Dyspnea SNOMED Code(s): 481896151 ICD Code: R06.00 - DYSPNEA, UNSPECIFIED Status: Acute Qualifiers: Dyspnea type: unspecified Qualified Code(s): R06.00 - Dyspnea, unspecified (3) CHF (congestive heart failure) SNOMED Code(s): 35599120 ICD Code: I50.9 - HEART FAILURE, UNSPECIFIED Status: Acute Qualifiers: Heart failure type: diastolic Heart failure chronicity: acute on chronic Qualified Code(s): I50.33 - Acute on chronic diastolic (congestive) heart failure (4) Elevated transaminase level SNOMED Code(s): 495730843 ICD Code: R74.0 - NONSPEC ELEV OF LEVELS OF TRANSAMNS & LACTIC ACID DEHYDRGNSE Status: Acute (5) ANGIE on CPAP SNOMED Code(s): 55411393 ICD Code: G47.33 - OBSTRUCTIVE SLEEP APNEA (ADULT) (PEDIATRIC); Z99.89 - DEPENDENCE ON OTHER ENABLING MACHINES AND DEVICES Status: Chronic (6) Morbid obesity with BMI of 50.0-59.9, adult SNOMED Code(s): 799626555 ICD Code: E66.01 - MORBID (SEVERE) OBESITY DUE TO EXCESS CALORIES; Z68.43 - BODY MASS INDEX (BMI) 50-59.9 , ADULT Status: Chronic (7) DM type 2 (diabetes mellitus, type 2) SNOMED Code(s): 88884029 ICD Code: E11.9 - TYPE 2 DIABETES MELLITUS WITHOUT COMPLICATIONS Status: Chronic Qualifiers: Diabetes mellitus complication status: without complication Diabetes mellitus fci 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 Qualified Code(s): E11.9 - Type 2 diabetes mellitus without complications (8) Hypertension SNOMED Code(s): 65833807 ICD Code: I10 - ESSENTIAL (PRIMARY) HYPERTENSION Status: Chronic Qualifiers: Hypertension type: essential hypertension Qualified Code(s): I10 - Essential (primary) hypertension - Patient Instructions Diet: Heart Healthy Diet, Low Sodium, Diabetic Diet Activity: As Tolerated, No Strenuous Activities, Rest and Relax Today Showering/Bathing: May Shower Notify Provider of: Fever, Increased Pain, Swelling and Redness, Drainage, Nausea and/or Vomiting Other/Special Instructions: Weigh yourself daily and log weights. Call PCP if you start to gain 3-5 lbs over 2-3 days. Monitor Salt intake. Continue CPAP use. Monitor and log Blood pressures and bring to [facility] with [facility]. - Discharge Plan Prescriptions/Med Rec: Furosemide [Lasix] 40 mg PO BID #60 tab Lisinopril 20 mg PO BID #60 tablet Metoprolol Succinate [Toprol XL] 25 mg PO DAILY #30 tab.er Home Medications: Home Meds Escitalopram Oxalate 20 mg PO DAILY 01/07/17 [History] Diclofenac Sodium [IJD: Diclofenac Sodium] 75 mg PO BIDMEALS 05/15/17 [History] QUEtiapine Fumarate [Quetiapine Fumarate] 50 - 100 mg PO BEDTIME PRN 05/15/17 [ History] atorvaSTATin Calcium [Atorvastatin Calcium] 20 mg PO BEDTIME 05/15/17 [History] buPROPion [buPROPion XL] 300 mg PO BEDTIME 05/15/17 [History] Aspirin 81 mg PO DAILY tab.chew 05/16/17 [Rx] Furosemide [Lasix] 40 mg PO BID #60 tab 05/16/17 [Rx] Lisinopril 20 mg PO BID #60 tablet 05/16/17 [Rx] Metoprolol Succinate [Toprol XL] 25 mg PO DAILY #30 tab.er 05/16/17 [Rx] Patient Handouts: Furosemide tablets, Metoprolol tablets, Chest Wall Pain, Easy -to-Read, Lisinopril tablets, Heart Failure, Preventing Heart Failure, Hypertension Referrals: [facility] [Outside] - 05/23/17 9:30 am - Discharge Summary/Plan Comment DC Time >30 min.: No Discharge Summary/Plan Comment: Discharge Diagnoses: Chest pain- related to non-compliance with medications CHF, diastolic, exacerbation related to above ANGIE on CPAP Obesity DM type 2, diet controlled HTN- uncontrolled. Depression Anxiety Rogelio was admitted and treated for chest pain pain, which is likely secondary to his non-compliance with medications, including his Lisinopril, Lasix and Metoprolol. He was reporting dyspnea and midsternal chest pain. CXR revealed some pulmonary congestion and he was treated with IV Lasix 40 mg X 2 doses. Home medications were restarted. BP remained elevated 140/100 which it appears his BP remains near this and they have been working to lower it. We will plan to restart his Lisinopril 20 mg BID and increase his Metoprolol XL to 25 mg daily and restart Lasix 40 mg BID. He was encouraged to stay complaint with his medication, diet including sodium restriction and watch his water intake. Weight loss highly encouraged. Dyspnea improved. Troponins were trended and were negative. Chest pain likely secondary to pulmonary congestion. Today he is very eager to be discharge home and is feeling better. Records reviewed from Dr Nicole, Cardiology at [place] and restarted the medication she listed in her clinic notes. VSS, BP remains elevated but near his [id number]. He will be discharged home on his home medications with refills. He will also need follow up on leukocytosis, slight elevation noted but no infection noted and afebrile. Previous admission it was also slightly elevated at same range 12, 000. Will leave to [facility] to coordinate follow up and potential hematology consult. He also report IM steroid use for building muscle. He was highly encouraged to stop this as this will worsen HTN and CHF as well as mental health with his depression and anxiety. He verbally agrees to stop. He will again be arranged with PCP at [facility] next week. He is to return to ED or clinic if concerns should arise. - General Info Date of Service: 05/16/17 Admission Dx/Problem (Free Text: Admission Diagnosis/Problem Admission Diagnosis/Problem Chest pain, rule out acute myocardial infarction Subjective Update: Sitting up in chair, requesting discharge home. feeling much better and is less short of breath. No chest pain. Functional Status: Reports: Pain Controlled, Tolerating Diet, Ambulating, Urinating - Review of Systems Pulmonary: Reports: No Symptoms. Denies: Shortness of Breath, Pleuritic Chest Pain, Cough, Sputum Cardiovascular: Reports: Edema (scant to BLE.). Denies: Chest Pain Gastrointestinal: Reports: No Symptoms. Denies: Abdominal Pain, Nausea, Vomiting Genitourinary: Reports: No Symptoms. Denies: Dysuria, Frequency, Burning Musculoskeletal: Reports: No Symptoms. Denies: Neck Pain Neurological: Reports: No Symptoms. Denies: Confusion Psychiatric: Reports: No Symptoms. Denies: Confusion - Patient Data Vitals - Most Recent: Last Vital Signs Temp 98.2 F 05/16/17 07:57 Pulse 101 H 05/16/17 09:07 Resp 20 05/16/17 07:57 BP 157/107 H 05/16/17 09:07 Pulse Ox 92 L 05/16/17 07:57 Weight - Most Recent: 165.062 kg I&O - Last 24 hours: Intake & Output 05/15/17 05/16/17 05/16/17 22:59 06:59 14:59 Intake Total 600 1000 Output Total 400 1050 Balance 200 -50 Lab Results - Last 24 hrs: Laboratory Results - last 24 hr 05/15/17 05/15/17 05/16/17 Range/Units 16:55 22:50 05:08 WBC 13.51 H (4.0-11.0) K/uL RBC 5.92 H (4.50-5.90) M/uL Hgb 18.2 H (13.0-17.0) g/dL Hct 54.6 H (38.0-50.0) % MCV 92.2 (80.0-98.0) fL MCH 30.7 (27.0-32.0) pg MCHC 33.3 (31.0-37.0) g/dL RDW Std Deviation 51.7 (28.0-62.0) fl RDW Coeff of Tita 15 (11.0-15.0) % Plt Count 243 (150-400) K/uL MPV 9.70 (7.40-12.00) fL Neut % (Auto) 65.9 (48.0-80.0) % Lymph % (Auto) 17.8 (16.0-40.0) % [place] % (Auto) 11.1 (0.0-15.0) % Eos % (Auto) 4.7 (0.0-7.0) % Baso % (Auto) 0.5 (0.0-1.5) % Neut # (Auto) 8.9 H (1.4-5.7) K/uL Lymph # (Auto) 2.4 (0.6-2.4) K/uL [place] # (Auto) 1.5 H (0.0-0.8) K/uL Eos # (Auto) 0.6 (0.0-0.7) K/uL Baso # (Auto) 0.1 (0.0-0.1) K/uL Nucleated RBC % 0.0 /100WBC Nucleated RBCs # 0 K/uL Sodium (136-148) mmol/L Potassium (3.5-5.1) mmol/L Chloride (98-107) mmol/L Carbon Dioxide (21.0-32.0) mmol/L BUN (7.0-18.0) mg/dL Creatinine (0.8-1.3) mg/dL Est Cr Clr Drug Dosing mL/min Estimated GFR (MDRD) ml/min Glucose (74-106) mg/dL Calcium (8.5-10.1) mg/dL Magnesium (1.5-2.0) mg/dL Total Bilirubin (0.2-1.0) mg/dL AST (15-37) IU/L ALT (14-63) IU/L Alkaline Phosphatase (46-116) U/L Troponin I < 0.050 < 0.050 (0.000-0.056) ng/mL C-Reactive Protein (0.00-0.90) mg/dL Total Protein (6.4-8.2) g/dL Albumin (3.4-5.0) g/dL Globulin (2.0-3.5) g/dL Albumin/Globulin Ratio (1.3-2.8) 05/16/17 05/16/17 Range/Units 05:08 05:08 WBC (4.0-11.0) K/uL RBC (4.50-5.90) M/uL Hgb (13.0-17.0) g/dL Hct (38.0-50.0) % MCV (80.0-98.0) fL MCH (27.0-32.0) pg MCHC (31.0-37.0) g/dL RDW Std Deviation (28.0-62.0) fl RDW Coeff of Tita (11.0-15.0) % Plt Count (150-400) K/uL MPV (7.40-12.00) fL Neut % (Auto) (48.0-80.0) % Lymph % (Auto) (16.0-40.0) % [place] % (Auto) (0.0-15.0) % Eos % (Auto) (0.0-7.0) % Baso % (Auto) (0.0-1.5) % Neut # (Auto) (1.4-5.7) K/uL Lymph # (Auto) (0.6-2.4) K/uL [place] # (Auto) (0.0-0.8) K/uL Eos # (Auto) (0.0-0.7) K/uL Baso # (Auto) (0.0-0.1) K/uL Nucleated RBC % /100WBC Nucleated RBCs # K/uL Sodium 138 (136-148) mmol/L Potassium 5.1 (3.5-5.1) mmol/L Chloride 102 (98-107) mmol/L Carbon Dioxide 28.9 (21.0-32.0) mmol/L BUN 14 (7.0-18.0) mg/dL Creatinine 1.5 H (0.8-1.3) mg/dL Est Cr Clr Drug Dosing 58.26 mL/min Estimated GFR (MDRD) 49.3 ml/min Glucose 115 H (74-106) mg/dL Calcium 9.3 (8.5-10.1) mg/dL Magnesium 1.6 (1.5-2.0) mg/dL Total Bilirubin 0.9 (0.2-1.0) mg/dL AST 51 H (15-37) IU/L ALT 92 H (14-63) IU/L Alkaline Phosphatase 86 (46-116) U/L Troponin I (0.000-0.056) ng/mL C-Reactive Protein 1.60 H (0.00-0.90) mg/dL Total Protein 7.5 (6.4-8.2) g/dL Albumin 3.8 (3.4-5.0) g/dL Globulin 3.7 H (2.0-3.5) g/dL Albumin/Globulin Ratio 1.0 L (1.3-2.8) Med Orders - Current: Current Medications Acetaminophen (Tylenol) 650 mg PO Q6H PRN PRN Reason: Pain Last Admin: 05/15/17 22:13 Dose: 650 mg Aspirin (Aspirin) 81 mg PO DAILY [facility] Last Admin: 05/16/17 08:10 Dose: 81 mg Atorvastatin Calcium (Lipitor) 20 mg PO BEDTIME [facility] Bupropion HCl (Wellbutrin Xl) 300 mg PO BEDTIME [facility] Escitalopram Oxalate (Lexapro) 20 mg PO DAILY [facility] Last Admin: 05/16/17 08:10 Dose: 20 mg Heparin Sodium (Porcine) (Heparin Sodium) 5,000 units SUBCUT Q12HR [facility] Last Admin: 05/16/17 08:09 Dose: 5,000 units Lisinopril (Prinivil) 20 mg PO BID [facility] Last Admin: 05/16/17 08:44 Dose: Not Given Metoprolol Succinate (Toprol Xl) 25 mg PO DAILY [facility] Last Admin: 05/16/17 09:07 Dose: 25 mg Ondansetron HCl (Zofran) 4 mg IVPUSH Q4H PRN PRN Reason: Nausea Sodium Chloride (Saline Flush) 10 ml FLUSH ASDIRECTED PRN PRN Reason: Keep Vein Open Sodium Chloride (Saline Flush) 2.5 ml FLUSH ASDIRECTED PRN PRN Reason: Keep Vein Open Temazepam (Restoril) 15 mg PO BEDTIME PRN PRN Reason: Insomnia Last Admin: 05/15/17 22:48 Dose: 15 mg Discontinued Medications Aspirin (Aspirin) 324 mg PO ONETIME ONE Stop: 05/15/17 10:35 Last Admin: 05/15/17 10:57 Dose: 324 mg Furosemide (Lasix) 40 mg IVPUSH NOW ONE Stop: 05/15/17 13:32 Last Admin: 05/15/17 14:02 Dose: 40 mg Furosemide (Lasix) 40 mg IVPUSH NOW ONE Stop: 05/16/17 07:39 Last Admin: 05/16/17 08:09 Dose: 40 mg Lisinopril (Prinivil) 20 mg PO DAILY JESSI Last Admin: 05/16/17 08:10 Dose: 20 mg Morphine Sulfate (Morphine) 4 mg IVPUSH ONETIME ONE Stop: 05/15/17 11:50 Last Admin: 05/15/17 12:23 Dose: 4 mg Nitroglycerin (Nitrostat) 0.4 mg SL Q5M PRN PRN Reason: Chest Pain Last Admin: 05/15/17 11:09 Dose: 0.4 mg Nitroglycerin (Nitro-Bid 2%) 1 gm TOP ONETIME ONE Stop: 05/15/17 12:10 Last Admin: 05/15/17 12:19 Dose: 1 gm - Exam General: Reports: Alert, Oriented, Cooperative, No Acute Distress HEENT: Reports: Pupils Equal, Pupils Reactive, EOMI, Mucous Membr. Moist/[place] Neck: Reports: Supple Lungs: Reports: Clear to Auscultation, Normal Respiratory Effort Cardiovascular: Reports: Regular Rate, Regular Rhythm GI/Abdominal Exam: Normal Bowel Sounds, Soft, Non-Tender, No Organomegaly, No Distention, No Abnormal Bruit, No Mass, Pelvis Stable Back Exam: Reports: Normal Inspection, Full Range of Motion Extremities: Normal Inspection, Normal Range of Motion, Non-Tender, Normal Capillary Refill, Pedal Edema (scant to +1 ) Neurological: Reports: No New Focal Deficit Psy/Mental Status: Reports: Alert, Normal Affect, Normal Mood *Q Meaningful Use (DIS) - VTE *Q VTE Criteria *Q: - Stroke *Q Stroke Criteria *Q: - AMI *Q AMI Criteria *Q:
[2017-05-16] MEDS ORDERED: buPROPion 150 MG Tab.ER PO SCH (21:00)
[2017-05-16] MEDS ORDERED: atorvaSTATin 20 MG Tab PO SCH (21:00)
--- NOTE | 2017-05-22 11:43 | PCM.SN ---
- Free Text/Narrative Note: Hepatitis C AB reactive lab noted. Dr Enrique notified Madison [facility]OTOVOLTA[facility] INST[facility], Rogelio' PCP regarding result and she will follow up with patient regarding this. Results also faxed to [facility] today 05/22/17 at 1140 by myself.
== END 2017-05-16 14:22 | disposition home or self-care (01) ==
LOC: MW.ED 10:33 → MW.MS 12:09
PROVIDERS: ADMIT Family Medicine; ATTEND Family Medicine
DX: I11.0 Hypertensive heart disease with heart failure (principal); I50.33 Acute on chronic diastolic (congestive) heart failure; E66.01 Morbid (severe) obesity due to excess calories; G47.33 Obstructive sleep apnea (adult) (pediatric); E11.9 Type 2 diabetes mellitus without complications; R74.0 Nonspecific elevation of levels of transaminase and lactic acid dehydrogenase [LDH]; F32.9 Major depressive disorder, single episode, unspecified; F41.9 Anxiety disorder, unspecified; Z91.14 Patient's other noncompliance with medication regimen; Z99.89 Dependence on other enabling machines and devices; Z68.43 Body mass index [BMI] 50.0-59.9, adult; Z79.899 Other long term (current) drug therapy; Z79.82 Long term (current) use of aspirin
CPT/HCPCS: 36415; 71045; 76705; 80053; 83036; 83735; 83880; 84484; 85025; 86140; 93005; 96374; 99285; A9270; J1644; J1940; J2270; 80074; 96372; 96375; 96376; 99284; G0378

== ENCOUNTER 2017-05-16 20:23 | Emergency (ER) | payer OTHER ==
[2017-05-16] MEDS ORDERED: Nitroglycerin 0.4 MG Tab.SL SL ONE (20:29)
[2017-05-16] MEDS ORDERED: Sodium Chloride 0.9% 2.5 ML Syringe FLUSH PRN (20:29)
[2017-05-16] MEDS ORDERED: Aspirin 81 MG Tab.Chew PO ONE (20:29)
[2017-05-16] MEDS ORDERED: Nitroglycerin 2% Oint 1 GM UD Packet TOP ONE (20:29)
[2017-05-16] MEDS ORDERED: Sodium Chloride 0.9% 10 ML Syringe FLUSH PRN (20:29)
--- NOTE | 2017-05-16 20:39 | EDM.PDOC ---
ED HPI GENERAL MEDICAL PROBLEM - General Chief Complaint: Chest Pain Stated Complaint: POSSIBLE STROKE Time Seen by Provider: 05/16/17 20:31 Source of Information: Reports: Patient History Limitations: Reports: No Limitations - History of Present Illness INITIAL COMMENTS - FREE TEXT/NARRATIVE: HISTORY AND PHYSICAL: History of present illness: Patient is a 52-year-old male who presents to the emergency room today with complaints of chest pain and shortness of breath. Patient was admitted on 2017 or chest pain and shortness of breath, discharged earlier today. During this time he was evaluated and monitored for congestive heart failure exacerbation and resolved chest pain. He says that since his discharge he has had some visual and auditory hallucinations. He denies any suicidal or homicidal ideations. No family history of schizophrenia or mental health disorders. He denies any head injury or trauma. Patient has a history of CHF, type 2 diabetes, hypertension, obstructive sleep apnea, and medication noncompliance. Review of systems: As per history of present illness and below otherwise all systems reviewed and negative. Past medical history: As per history of present illness and as reviewed below otherwise noncontributory. Surgical history: As per history of present illness and as reviewed below otherwise noncontributory. Social history: No reported history of drug or alcohol abuse. Family history: As per history of present illness and as reviewed below otherwise noncontributory. Physical exam: HEENT: Atraumatic, normocephalic, pupils reactive, negative for conjunctival pallor or scleral icterus, mucous membranes moist, throat clear, neck supple, nontender, trachea midline. Lungs: Clear to auscultation, breath sounds equal bilaterally, chest nontender. Heart: S1S2, regular, negative for clicks, rubs, or JVD. Abdomen: Soft, nondistended, morbidly obese, nontender. Negative for masses or hepatosplenomegaly. Negative for costovertebral tenderness. Pelvis: Stable nontender. Genitourinary: Deferred. Rectal: Deferred. Skin: Diaphoretic, intact, warm. no rashes or lesions noted. Extremities: Atraumatic, moves all extremities per self, was able to ambulate into the ER without difficulty or deficits. He is negative for cords or calf pain. Neurovascular unremarkable. Neuro: Awake, alert, oriented. Cranial nerves II through XII unremarkable. Cerebellum unremarkable. Motor and sensory unremarkable throughout. Exam nonfocal. Patient reports visual and auditory hallucinations. He denies any head injury or falls since being discharged from the hospital. Does not have any family history of schizophrenia or mental health disorders. Mom is at the bedside and states she has noticed he was talking to himself earlier, stating he had seen someone in the room. He denies any suicidal or homicidal ideations. Patient is having some midsternal chest pain and shortness of breath. Due to blood pressure the nitroglycerin will be held at this time. Cultures will be added and IV fluids have been ordered. 2100- WBC is 12.95, Lactic 2.1, TSH 4.85 2129- During our conversation I do note that the patient has a slightly muffled voice, more than previously. I am sure if this is due to his positioning in a semifowlers position (has standing/high fowlers position previously). He states that he is unsure if this is normal for him. The other at the bedside states that it is not normal. I'm unable to visualize the posterior oropharynx and cooperation. CT of the soft tissue neck has been ordered. IV fluids and antibiotics are running at this time. 2199- Dr Adamson was consulted on this case. VSS and being monitored closely. Patient appears to be more disorientated. Snoring respirations while awake, states "I'm sleep walking". Trying to get up out of the cot. Patient is requiring 1:1 monitoring. 2239- patient's respiratory status and airway is not improving. Dr. De Luna and agrees that this patient should be intubated. Dr. Philippe and has explained the procedure to the patient, he is agreeable. Anesthesia has been called in to assist with the procedure. Patient is a pending transfer. Dr Anderson from [place] in [place] was consulted on this case. Accepted patient, will transfer to [place] via fixed wing. Diagnostics: CBC, CMP, troponin, EKG, one view chest x-ray, TSH, ammonia, head CT, CT soft tissue neck, CTA, UA, ABG Therapeutics: Nitroglycerin (HOLD), nitro paste (HOLD), normal saline, ASA Impression: CHF exacerbation Altered mental status Chest pain Impending upper airway obstruction Plan: Patient signed out to Dr Adamson and Klaus - Transfer to [facility] via fixed wing. Definitive disposition and diagnosis as appropriate pending reevaluation and review of above. chest Pain Score (Numeric/FACES): 6 - Related Data Allergies Allergy/AdvReac Type Severity Reaction Status Date / Time No Known Allergies Allergy Verified 05/16/17 20:28 Home Meds: Home Meds Escitalopram Oxalate 20 mg PO DAILY 01/07/17 [History] Diclofenac Sodium [IJD: Diclofenac Sodium] 75 mg PO BIDMEALS 05/15/17 [History] QUEtiapine Fumarate [Quetiapine Fumarate] 50 - 100 mg PO BEDTIME PRN 05/15/17 [ History] atorvaSTATin Calcium [Atorvastatin Calcium] 20 mg PO BEDTIME 05/15/17 [History] buPROPion [buPROPion XL] 300 mg PO BEDTIME 05/15/17 [History] Aspirin 81 mg PO DAILY tab.chew 05/16/17 [Rx] Furosemide [Lasix] 40 mg PO BID #60 tab 05/16/17 [Rx] Lisinopril 20 mg PO BID #60 tablet 05/16/17 [Rx] Metoprolol Succinate [Toprol XL] 25 mg PO DAILY #30 tab.er 05/16/17 [Rx] Past Medical History HEENT History: Reports: None Other HEENT History: Patient states difficulty hearing at times- low tones are hard to hear Cardiovascular History: Reports: High Cholesterol, Hypertension, SOB on Exertion. Denies: Afib, Blood Clots/VTE/DVT, CAD, [place] Respiratory History: Reports: Bronchitis, Recurrent, Sleep Apnea (CPAP), SOB Gastrointestinal History: Reports: None. Denies: GERD, GI Bleed Genitourinary History: Reports: None. Denies: Chronic Renal Insuffiency Musculoskeletal History: Reports: None Neurological History: Reports: None. Denies: CVA, MS, Seizure, TIA Other Neuro History: occasional migraines Psychiatric History: Reports: Anxiety, Depression Endocrine/Metabolic History: Reports: Diabetes, Type II (currently not taking any medications.) Hematologic History: Reports: None Immunologic History: Reports: None Oncologic (Cancer) History: Reports: None Dermatologic History: Reports: None - Infectious Disease History Infectious Disease History: Reports: Chicken Pox, Measles, Mumps - Past Surgical History Musculoskeletal Surgical History: Reports: Other (See Below) Other Musculoskeletal Surgeries/Procedures:: surgery to knees & foot and shoulder Social & Family History - Family History Family Medical History: Noncontributory - Tobacco Use Smoking Status *Q: Never Smoker Used Tobacco, but Quit: Yes Month/Year Tobacco Last Used: 1985 Second Hand Smoke Exposure: No - Caffeine Use Caffeine Use: Reports: Coffee, Soda (upwards of 104 oz Mountain Dew daily) - Recreational Drug Use Recreational Drug Use: No - Living Situation & Occupation Living situation: Reports: Single Occupation: Employed ED ROS GENERAL - Review of Systems Review Of Systems: ROS reveals no pertinent complaints other than HPI. ED EXAM, GENERAL - Physical Exam Exam: See Below (See dictation) Course - Vital Signs Last Recorded V/S: Last Vital Signs Temp 97.6 F 05/16/17 22:13 Pulse 94 05/16/17 22:13 Resp 25 H 05/16/17 22:13 BP 106/78 05/16/17 22:22 Pulse Ox 95 05/16/17 22:13 - Orders/Labs/Meds Orders: Active Orders 24 hr Category Date Time Status EKG Documentation Completion [RC] STAT Care 05/16/17 20:29 Active RT Aerosol Therapy [RC] ASDIRECTED Care 05/16/17 22:38 Active Chest 1V Frontal [CR] Stat Exams 05/16/17 20:29 Taken Chest 1V Frontal [CR] Stat Exams 05/16/17 22:40 Ordered Chest PE [Ang Chest] [CT] Stat Exams 05/16/17 22:07 Ordered Head wo Cont [CT] Stat Exams 05/16/17 20:39 Ordered Soft Tissue Neck w Cont [CT] Stat Exams 05/16/17 21:38 Ordered CULTURE BLOOD [BC] Stat Lab 05/16/17 21:13 Received CULTURE BLOOD [BC] Stat Lab 05/16/17 21:13 Received UA W/MICROSCOPIC [URIN] Stat Lab 05/16/17 22:10 Ordered Sodium Chloride 0.9% [Normal Saline] 1,000 ml Med 05/16/17 20:46 Active IV STAT Sodium Chloride 0.9% [Saline Flush] Med 05/16/17 20:29 Active 10 ml FLUSH ASDIRECTED PRN Sodium Chloride 0.9% [Saline Flush] Med 05/16/17 20:29 Active 2.5 ml FLUSH ASDIRECTED PRN Blood Culture x2 Reflex Set [OM.PC] Stat Oth 05/16/17 20:59 Ordered Saline Lock Insert [OM.PC] Stat Oth 05/16/17 20:29 Ordered Medication Orders Sodium Chloride (Normal Saline) 1,000 mls @ 125 mls/hr IV STAT ONE Stop: 05/17/17 04:45 Last Admin: 05/16/17 20:54 Dose: 125 mls/hr Sodium Chloride (Saline Flush) 10 ml FLUSH ASDIRECTED PRN PRN Reason: Keep Vein Open Sodium Chloride (Saline Flush) 2.5 ml FLUSH ASDIRECTED PRN PRN Reason: Keep Vein Open Labs: Laboratory Tests 05/16/17 05/16/17 05/16/17 Range/Units 20:40 20:40 20:40 WBC 12.95 H (4.0-11.0) K/uL RBC 5.63 (4.50-5.90) M/uL Hgb 17.2 H (13.0-17.0) g/dL Hct 51.5 H (38.0-50.0) % MCV 91.5 (80.0-98.0) fL MCH 30.6 (27.0-32.0) pg MCHC 33.4 (31.0-37.0) g/dL RDW Std Deviation 51.4 (28.0-62.0) fl RDW Coeff of Tita 15 (11.0-15.0) % Plt Count 242 (150-400) K/uL MPV 10.20 (7.40-12.00) fL Neut % (Auto) 61.3 (48.0-80.0) % Lymph % (Auto) 23.4 (16.0-40.0) % [place] % (Auto) 10.7 (0.0-15.0) % Eos % (Auto) 4.1 (0.0-7.0) % Baso % (Auto) 0.5 (0.0-1.5) % Neut # (Auto) 7.9 H (1.4-5.7) K/uL Lymph # (Auto) 3.0 H (0.6-2.4) K/uL [place] # (Auto) 1.4 H (0.0-0.8) K/uL Eos # (Auto) 0.5 (0.0-0.7) K/uL Baso # (Auto) 0.1 (0.0-0.1) K/uL Nucleated RBC % 0.0 /100WBC Nucleated RBCs # 0 K/uL INR 1.06 ABG pH (7.35-7.45) ABG pCO2 (35-45) mmHG ABG pO2 (75-100) mmHG ABG HCO3 (22-26) mEq/L ABG Total CO2 ABG Base Excess (-2.0-2.0) Lactate (0.20-2.00) mmol/L Sodium 139 (136-148) mmol/L Potassium 4.6 (3.5-5.1) mmol/L Chloride 102 (98-107) mmol/L Carbon Dioxide 27.3 (21.0-32.0) mmol/L BUN 25 H (7.0-18.0) mg/dL Creatinine 1.8 H (0.8-1.3) mg/dL Est Cr Clr Drug Dosing 48.55 mL/min Estimated GFR (MDRD) 40.0 ml/min Glucose 139 H (74-106) mg/dL Calcium 9.1 (8.5-10.1) mg/dL Total Bilirubin 0.5 (0.2-1.0) mg/dL AST 54 H (15-37) IU/L ALT 82 H (14-63) IU/L Alkaline Phosphatase 84 (46-116) U/L Ammonia (19-54) ug/dL Troponin I < 0.050 (0.000-0.056) ng/mL B-Natriuretic Peptide (<100) PG/ML Total Protein 6.6 (6.4-8.2) g/dL Albumin 3.6 (3.4-5.0) g/dL Globulin 3.0 (2.0-3.5) g/dL Albumin/Globulin Ratio 1.2 L (1.3-2.8) TSH 3rd Generation (0.36-3.74) uIU/mL 05/16/17 05/16/17 05/16/17 Range/Units 20:40 20:40 20:40 WBC (4.0-11.0) K/uL RBC (4.50-5.90) M/uL Hgb (13.0-17.0) g/dL Hct (38.0-50.0) % MCV (80.0-98.0) fL MCH (27.0-32.0) pg MCHC (31.0-37.0) g/dL RDW Std Deviation (28.0-62.0) fl RDW Coeff of Tita (11.0-15.0) % Plt Count (150-400) K/uL MPV (7.40-12.00) fL Neut % (Auto) (48.0-80.0) % Lymph % (Auto) (16.0-40.0) % [place] % (Auto) (0.0-15.0) % Eos % (Auto) (0.0-7.0) % Baso % (Auto) (0.0-1.5) % Neut # (Auto) (1.4-5.7) K/uL Lymph # (Auto) (0.6-2.4) K/uL [place] # (Auto) (0.0-0.8) K/uL Eos # (Auto) (0.0-0.7) K/uL Baso # (Auto) (0.0-0.1) K/uL Nucleated RBC % /100WBC Nucleated RBCs # K/uL INR ABG pH (7.35-7.45) ABG pCO2 (35-45) mmHG ABG pO2 (75-100) mmHG ABG HCO3 (22-26) mEq/L ABG Total CO2 ABG Base Excess (-2.0-2.0) Lactate (0.20-2.00) mmol/L Sodium (136-148) mmol/L Potassium (3.5-5.1) mmol/L Chloride (98-107) mmol/L Carbon Dioxide (21.0-32.0) mmol/L BUN (7.0-18.0) mg/dL Creatinine (0.8-1.3) mg/dL Est Cr Clr Drug Dosing mL/min Estimated GFR (MDRD) ml/min Glucose (74-106) mg/dL Calcium (8.5-10.1) mg/dL Total Bilirubin (0.2-1.0) mg/dL AST (15-37) IU/L ALT (14-63) IU/L Alkaline Phosphatase (46-116) U/L Ammonia 43 (19-54) ug/dL Troponin I (0.000-0.056) ng/mL B-Natriuretic Peptide < 15 (<100) PG/ML Total Protein (6.4-8.2) g/dL Albumin (3.4-5.0) g/dL Globulin (2.0-3.5) g/dL Albumin/Globulin Ratio (1.3-2.8) TSH 3rd Generation 4.85 H (0.36-3.74) uIU/mL 05/16/17 05/16/17 Range/Units 20:40 22:30 WBC (4.0-11.0) K/uL RBC (4.50-5.90) M/uL Hgb (13.0-17.0) g/dL Hct (38.0-50.0) % MCV (80.0-98.0) fL MCH (27.0-32.0) pg MCHC (31.0-37.0) g/dL RDW Std Deviation (28.0-62.0) fl RDW Coeff of Tita (11.0-15.0) % Plt Count (150-400) K/uL MPV (7.40-12.00) fL Neut % (Auto) (48.0-80.0) % Lymph % (Auto) (16.0-40.0) % [place] % (Auto) (0.0-15.0) % Eos % (Auto) (0.0-7.0) % Baso % (Auto) (0.0-1.5) % Neut # (Auto) (1.4-5.7) K/uL Lymph # (Auto) (0.6-2.4) K/uL [place] # (Auto) (0.0-0.8) K/uL Eos # (Auto) (0.0-0.7) K/uL Baso # (Auto) (0.0-0.1) K/uL Nucleated RBC % /100WBC Nucleated RBCs # K/uL INR ABG pH 7.385 (7.35-7.45) ABG pCO2 47 H (35-45) mmHG ABG pO2 82 (75-100) mmHG ABG HCO3 28 H (22-26) mEq/L ABG Total CO2 24.0 ABG Base Excess 2.0 (-2.0-2.0) Lactate 2.1 H (0.20-2.00) mmol/L Sodium (136-148) mmol/L Potassium (3.5-5.1) mmol/L Chloride (98-107) mmol/L Carbon Dioxide (21.0-32.0) mmol/L BUN (7.0-18.0) mg/dL Creatinine (0.8-1.3) mg/dL Est Cr Clr Drug Dosing mL/min Estimated GFR (MDRD) ml/min Glucose (74-106) mg/dL Calcium (8.5-10.1) mg/dL Total Bilirubin (0.2-1.0) mg/dL AST (15-37) IU/L ALT (14-63) IU/L Alkaline Phosphatase (46-116) U/L Ammonia (19-54) ug/dL Troponin I (0.000-0.056) ng/mL B-Natriuretic Peptide (<100) PG/ML Total Protein (6.4-8.2) g/dL Albumin (3.4-5.0) g/dL Globulin (2.0-3.5) g/dL Albumin/Globulin Ratio (1.3-2.8) TSH 3rd Generation (0.36-3.74) uIU/mL Meds: Medications Generic Name Dose Route Start Last Admin Trade Name Freq PRN Reason Stop Dose Admin Sodium Chloride 1,000 mls @ 125 mls/hr 05/16/17 20:46 05/16/17 20:54 Normal Saline IV 05/17/17 04:45 125 mls/hr STAT ONE Administration Sodium Chloride 10 ml 05/16/17 20:29 Saline Flush FLUSH ASDIRECTED PRN Keep Vein Open Sodium Chloride 2.5 ml 05/16/17 20:29 Saline Flush FLUSH ASDIRECTED PRN Keep Vein Open Discontinued Medications Generic Name Dose Route Start Last Admin Trade Name Freq PRN Reason Stop Dose Admin Albuterol/Ipratropium 3 ml 05/16/17 22:38 05/16/17 22:50 Duoneb 3.0-0.5 Mg/3 Ml NEB 05/16/17 22:39 3 ml ONETIME ONE Administration Albuterol/Ipratropium Confirm 05/16/17 22:38 05/16/17 22:55 Duoneb 3.0-0.5 Mg/3 Ml Administered 05/16/17 22:39 Not Given Dose 3 ml .ROUTE .STK-MED ONE Aspirin 324 mg 05/16/17 20:29 05/16/17 20:52 Aspirin PO 05/16/17 20:30 324 mg ONETIME ONE Administration Piperacillin Sod/Tazobactam 100 mls @ 100 mls/hr 05/16/17 21:25 05/16/17 21: 37 Sod 4.5 gm/ Sodium Chloride IV 05/16/17 22:24 100 mls/hr ONETIME ONE Administration Vancomycin HCl 1 gm/ Sodium 250 mls @ 250 mls/hr 05/16/17 21:25 05/16/17 22: 52 Chloride IV 05/16/17 22:24 250 mls/hr ONETIME ONE Administration Propofol Confirm 05/16/17 22:56 Diprivan 50 Ml Administered 05/16/17 22:57 Dose 50 mls @ as directed .ROUTE .STK-MED ONE Lorazepam 0.5 mg 05/16/17 21:04 05/16/17 21:23 Ativan IVPUSH 05/16/17 21:05 0.5 mg ONETIME ONE Administration Methylprednisolone Sodium Succinate 125 mg 05/16/17 22:37 05/16/17 22:49 Solu-Medrol IVPUSH 05/16/17 22:38 125 mg ONETIME ONE Administration Nitroglycerin 0.4 mg 05/16/17 20:29 05/16/17 22:22 Nitrostat SL 05/16/17 20:30 Not Given ONETIME ONE Nitroglycerin 0.5 gm 05/16/17 20:29 05/16/17 22:20 Nitro-Bid 2% TOP 05/16/17 20:30 Not Given ONETIME ONE Departure - Departure Time of Disposition: 22:51 Disposition: DC/Tfer to Other 70 Reason for Transfer *Q: Primary PCI Indicated Condition: Poor Clinical Impression: Respiratory distress Altered mental status Qualifiers: Altered mental status type: disorientation Qualified Code(s): R41.0 - Disorientation, unspecified Referrals: Darren Murphy MD [Primary Care Provider] - Forms: ED Department Discharge - My Orders Last 24 Hours: My Active Orders 05/16/17 20:29 EKG Documentation Completion [RC] STAT Chest 1V Frontal [CR] Stat Sodium Chloride 0.9% [Saline Flush] 10 ml FLUSH ASDIRECTED PRN Sodium Chloride 0.9% [Saline Flush] 2.5 ml FLUSH ASDIRECTED PRN Saline Lock Insert [OM.PC] Stat 05/16/17 20:39 Head wo Cont [CT] Stat 05/16/17 20:46 Sodium Chloride 0.9% [Normal Saline] 1,000 ml IV STAT 05/16/17 20:59 Blood Culture x2 Reflex Set [OM.PC] Stat 05/16/17 21:13 CULTURE BLOOD [BC] Stat CULTURE BLOOD [BC] Stat 05/16/17 21:38 Soft Tissue Neck w Cont [CT] Stat 05/16/17 22:07 Chest PE [Ang Chest] [CT] Stat 05/16/17 22:10 UA W/MICROSCOPIC [URIN] Stat 05/16/17 22:38 RT Aerosol Therapy [RC] ASDIRECTED 05/16/17 22:40 Chest 1V Frontal [CR] Stat - Assessment/Plan Last 24 Hours: My Active Orders 05/16/17 20:29 EKG Documentation Completion [RC] STAT Chest 1V Frontal [CR] Stat Sodium Chloride 0.9% [Saline Flush] 10 ml FLUSH ASDIRECTED PRN Sodium Chloride 0.9% [Saline Flush] 2.5 ml FLUSH ASDIRECTED PRN Saline Lock Insert [OM.PC] Stat 05/16/17 20:39 Head wo Cont [CT] Stat 05/16/17 20:46 Sodium Chloride 0.9% [Normal Saline] 1,000 ml IV STAT 05/16/17 20:59 Blood Culture x2 Reflex Set [OM.PC] Stat 05/16/17 21:13 CULTURE BLOOD [BC] Stat CULTURE BLOOD [BC] Stat 05/16/17 21:38 Soft Tissue Neck w Cont [CT] Stat 05/16/17 22:07 Chest PE [Ang Chest] [CT] Stat 05/16/17 22:10 UA W/MICROSCOPIC [URIN] Stat 05/16/17 22:38 RT Aerosol Therapy [RC] ASDIRECTED 05/16/17 22:40 Chest 1V Frontal [CR] Stat
[2017-05-16] MEDS ORDERED: Sodium Chloride 0.9% 1,000 ML IV ONE (20:46)
[2017-05-16] MEDS ORDERED: LORazepam 2 MG/ML SDV IVPUSH ONE (21:04)
[2017-05-16] MEDS ORDERED: Piperacillin/Tazobactam 4.5 GM in Sodium Chloride 0.9% 100 ML IV ONE (21:25)
[2017-05-16 21:39] LABS: CHLORIDE,CL 102 mmol/L (98-107); SODIUM,NA 139 mmol/L (136-148)
[2017-05-16] MEDS ORDERED: methylPREDNISolone Sodium Succinate 125 MG/2 ML SDV IVPUSH ONE (22:37)
[2017-05-16] MEDS ORDERED: Albuterol/Ipratropium 3.0-0.5 MG/3 ML Neb Soln NEB ONE (22:38)
[2017-05-16] MEDS ORDERED: Albuterol/Ipratropium 3.0-0.5 MG/3 ML Neb Soln ONE (22:38)
[2017-05-16] MEDS ORDERED: Etomidate 2 MG/ML 20 ML SDV IVPUSH ONE (22:55)
[2017-05-16] MEDS ORDERED: Succinylcholine 200 MG/10 ML MDV ONE (22:55)
--- NOTE | 2017-05-16 23:23 | PCM.CONS ---
H&P History of Present Illness - General Date of Service: 05/16/17 Source of Information: Family, Old Records, Provider - History of Present Illness Initial Comments - Free Text/Narative: I was called by Luis F Bernstein N.P. who was on duty in the emergency room. This man was discharged from the hospital earlier today after an overnight observation stay for chest pain thought related to hypertension and diastolic heart failure with outpatient poor compliance with his medical regimen. He had vague complaints when he arrived but seemed to be having respiratory difficulty. His voice was garbled and when questioned he said that his throat might feel swollen but also stated that he had been having auditory and visual hallucinations. He had been using "steroids" for body building at home. When he arrived to the ED he had some periods of hypotension with systolic blood pressures in the 70's. He was noted to have sonorous and grunting respiration c/w impending upper airway obstruction. On review of his home medications, I note that he has been on lisinopril. chest Pain Score (Numeric/FACES): 6 - Related Data Allergies/Adverse Reactions: Allergies Allergy/AdvReac Type Severity Reaction Status Date / Time No Known Allergies Allergy Verified 05/16/17 20:28 Home Medications: Home Meds Escitalopram Oxalate 20 mg PO DAILY 01/07/17 [History] Diclofenac Sodium [IJD: Diclofenac Sodium] 75 mg PO BIDMEALS 05/15/17 [History] QUEtiapine Fumarate [Quetiapine Fumarate] 50 - 100 mg PO BEDTIME PRN 05/15/17 [ History] atorvaSTATin Calcium [Atorvastatin Calcium] 20 mg PO BEDTIME 05/15/17 [History] buPROPion [buPROPion XL] 300 mg PO BEDTIME 05/15/17 [History] Aspirin 81 mg PO DAILY tab.chew 05/16/17 [Rx] Furosemide [Lasix] 40 mg PO BID #60 tab 05/16/17 [Rx] Lisinopril 20 mg PO BID #60 tablet 05/16/17 [Rx] Metoprolol Succinate [Toprol XL] 25 mg PO DAILY #30 tab.er 05/16/17 [Rx] Past Medical History HEENT History: Reports: None Other HEENT History: Patient states difficulty hearing at times- low tones are hard to hear Cardiovascular History: Reports: High Cholesterol, Hypertension, SOB on Exertion. Denies: Afib, Blood Clots/VTE/DVT, CAD, [place] Respiratory History: Reports: Bronchitis, Recurrent, Sleep Apnea (CPAP), SOB Gastrointestinal History: Reports: None. Denies: GERD, GI Bleed Genitourinary History: Reports: None. Denies: Chronic Renal Insuffiency Musculoskeletal History: Reports: None Neurological History: Reports: None. Denies: CVA, MS, Seizure, TIA Other Neuro History: occasional migraines Psychiatric History: Reports: Anxiety, Depression Endocrine/Metabolic History: Reports: Diabetes, Type II (currently not taking any medications.) Hematologic History: Reports: None Immunologic History: Reports: None Oncologic (Cancer) History: Reports: None Dermatologic History: Reports: None - Infectious Disease History Infectious Disease History: Reports: Chicken Pox, Measles, Mumps - Past Surgical History Musculoskeletal Surgical History: Reports: Other (See Below) Other Musculoskeletal Surgeries/Procedures:: surgery to knees & foot and shoulder Social & Family History - Family History Family Medical History: Noncontributory - Tobacco Use Smoking Status *Q: Never Smoker Used Tobacco, but Quit: Yes Month/Year Tobacco Last Used: 1985 Second Hand Smoke Exposure: No - Caffeine Use Caffeine Use: Reports: Coffee, Soda (upwards of 104 oz Mountain Dew daily) - Recreational Drug Use Recreational Drug Use: No - Living Situation & Occupation Living situation: Reports: Single Occupation: Employed H&P Review of Systems - Review of Systems: Review Of Systems: Unable To Obtain Free Text/Narrative: as per HPI. unable to obtain further accurate ROS Exam - Exam Exam: See Below - Vital Signs Vital Signs: Last Vital Signs Temp 97.6 F 05/16/17 22:13 Pulse 94 05/16/17 22:13 Resp 25 H 05/16/17 22:13 BP 106/78 05/16/17 22:22 Pulse Ox 95 05/16/17 22:13 Weight: 163.293 kg - Exam General: Alert, Other (sonorous loud and stridorous respirations ) HEENT: Other (very thick neck; no definite tongue swelling but subjective feeling that he throat might be swelling ( history is not certain to be reliable )) Lungs: Other (decreased tidal volumes; prolongation of expiration) Cardiovascular: Regular Rate, Regular Rhythm, Tachycardia GI/Abdominal Exam: Other (obese) Rectal (Males) Exam: Deferred Neuro Extensive - Motor, Sensory, Reflexes: No: Facial palsy (L), Facial Palsy ( R) Physical Exam Comments:: speech garbled and difficult to understand very thick neck obesity of the oral cavity; I am unable to adequately assess the posterior pharynx - Patient Data Lab Results Last 24 hrs: Laboratory Results - last 24 hr 05/16/17 05/16/17 05/16/17 Range/Units 20:40 20:40 20:40 WBC 12.95 H (4.0-11.0) K/uL RBC 5.63 (4.50-5.90) M/uL Hgb 17.2 H (13.0-17.0) g/dL Hct 51.5 H (38.0-50.0) % MCV 91.5 (80.0-98.0) fL MCH 30.6 (27.0-32.0) pg MCHC 33.4 (31.0-37.0) g/dL RDW Std Deviation 51.4 (28.0-62.0) fl RDW Coeff of Tita 15 (11.0-15.0) % Plt Count 242 (150-400) K/uL MPV 10.20 (7.40-12.00) fL Neut % (Auto) 61.3 (48.0-80.0) % Lymph % (Auto) 23.4 (16.0-40.0) % [place] % (Auto) 10.7 (0.0-15.0) % Eos % (Auto) 4.1 (0.0-7.0) % Baso % (Auto) 0.5 (0.0-1.5) % Neut # (Auto) 7.9 H (1.4-5.7) K/uL Lymph # (Auto) 3.0 H (0.6-2.4) K/uL [place] # (Auto) 1.4 H (0.0-0.8) K/uL Eos # (Auto) 0.5 (0.0-0.7) K/uL Baso # (Auto) 0.1 (0.0-0.1) K/uL Nucleated RBC % 0.0 /100WBC Nucleated RBCs # 0 K/uL INR 1.06 ABG pH (7.35-7.45) ABG pCO2 (35-45) mmHG ABG pO2 (75-100) mmHG ABG HCO3 (22-26) mEq/L ABG Total CO2 ABG Base Excess (-2.0-2.0) Lactate (0.20-2.00) mmol/L Sodium 139 (136-148) mmol/L Potassium 4.6 (3.5-5.1) mmol/L Chloride 102 (98-107) mmol/L Carbon Dioxide 27.3 (21.0-32.0) mmol/L BUN 25 H (7.0-18.0) mg/dL Creatinine 1.8 H (0.8-1.3) mg/dL Est Cr Clr Drug Dosing 48.55 mL/min Estimated GFR (MDRD) 40.0 ml/min Glucose 139 H (74-106) mg/dL Calcium 9.1 (8.5-10.1) mg/dL Total Bilirubin 0.5 (0.2-1.0) mg/dL AST 54 H (15-37) IU/L ALT 82 H (14-63) IU/L Alkaline Phosphatase 84 (46-116) U/L Ammonia (19-54) ug/dL Troponin I < 0.050 (0.000-0.056) ng/mL B-Natriuretic Peptide (<100) PG/ML Total Protein 6.6 (6.4-8.2) g/dL Albumin 3.6 (3.4-5.0) g/dL Globulin 3.0 (2.0-3.5) g/dL Albumin/Globulin Ratio 1.2 L (1.3-2.8) TSH 3rd Generation (0.36-3.74) uIU/mL 05/16/17 05/16/17 05/16/17 Range/Units 20:40 20:40 20:40 WBC (4.0-11.0) K/uL RBC (4.50-5.90) M/uL Hgb (13.0-17.0) g/dL Hct (38.0-50.0) % MCV (80.0-98.0) fL MCH (27.0-32.0) pg MCHC (31.0-37.0) g/dL RDW Std Deviation (28.0-62.0) fl RDW Coeff of Tita (11.0-15.0) % Plt Count (150-400) K/uL MPV (7.40-12.00) fL Neut % (Auto) (48.0-80.0) % Lymph % (Auto) (16.0-40.0) % [place] % (Auto) (0.0-15.0) % Eos % (Auto) (0.0-7.0) % Baso % (Auto) (0.0-1.5) % Neut # (Auto) (1.4-5.7) K/uL Lymph # (Auto) (0.6-2.4) K/uL [place] # (Auto) (0.0-0.8) K/uL Eos # (Auto) (0.0-0.7) K/uL Baso # (Auto) (0.0-0.1) K/uL Nucleated RBC % /100WBC Nucleated RBCs # K/uL INR ABG pH (7.35-7.45) ABG pCO2 (35-45) mmHG ABG pO2 (75-100) mmHG ABG HCO3 (22-26) mEq/L ABG Total CO2 ABG Base Excess (-2.0-2.0) Lactate (0.20-2.00) mmol/L Sodium (136-148) mmol/L Potassium (3.5-5.1) mmol/L Chloride (98-107) mmol/L Carbon Dioxide (21.0-32.0) mmol/L BUN (7.0-18.0) mg/dL Creatinine (0.8-1.3) mg/dL Est Cr Clr Drug Dosing mL/min Estimated GFR (MDRD) ml/min Glucose (74-106) mg/dL Calcium (8.5-10.1) mg/dL Total Bilirubin (0.2-1.0) mg/dL AST (15-37) IU/L ALT (14-63) IU/L Alkaline Phosphatase (46-116) U/L Ammonia 43 (19-54) ug/dL Troponin I (0.000-0.056) ng/mL B-Natriuretic Peptide < 15 (<100) PG/ML Total Protein (6.4-8.2) g/dL Albumin (3.4-5.0) g/dL Globulin (2.0-3.5) g/dL Albumin/Globulin Ratio (1.3-2.8) TSH 3rd Generation 4.85 H (0.36-3.74) uIU/mL 05/16/17 05/16/17 Range/Units 20:40 22:30 WBC (4.0-11.0) K/uL RBC (4.50-5.90) M/uL Hgb (13.0-17.0) g/dL Hct (38.0-50.0) % MCV (80.0-98.0) fL MCH (27.0-32.0) pg MCHC (31.0-37.0) g/dL RDW Std Deviation (28.0-62.0) fl RDW Coeff of Tita (11.0-15.0) % Plt Count (150-400) K/uL MPV (7.40-12.00) fL Neut % (Auto) (48.0-80.0) % Lymph % (Auto) (16.0-40.0) % [place] % (Auto) (0.0-15.0) % Eos % (Auto) (0.0-7.0) % Baso % (Auto) (0.0-1.5) % Neut # (Auto) (1.4-5.7) K/uL Lymph # (Auto) (0.6-2.4) K/uL [place] # (Auto) (0.0-0.8) K/uL Eos # (Auto) (0.0-0.7) K/uL Baso # (Auto) (0.0-0.1) K/uL Nucleated RBC % /100WBC Nucleated RBCs # K/uL INR ABG pH 7.385 (7.35-7.45) ABG pCO2 47 H (35-45) mmHG ABG pO2 82 (75-100) mmHG ABG HCO3 28 H (22-26) mEq/L ABG Total CO2 24.0 ABG Base Excess 2.0 (-2.0-2.0) Lactate 2.1 H (0.20-2.00) mmol/L Sodium (136-148) mmol/L Potassium (3.5-5.1) mmol/L Chloride (98-107) mmol/L Carbon Dioxide (21.0-32.0) mmol/L BUN (7.0-18.0) mg/dL Creatinine (0.8-1.3) mg/dL Est Cr Clr Drug Dosing mL/min Estimated GFR (MDRD) ml/min Glucose (74-106) mg/dL Calcium (8.5-10.1) mg/dL Total Bilirubin (0.2-1.0) mg/dL AST (15-37) IU/L ALT (14-63) IU/L Alkaline Phosphatase (46-116) U/L Ammonia (19-54) ug/dL Troponin I (0.000-0.056) ng/mL B-Natriuretic Peptide (<100) PG/ML Total Protein (6.4-8.2) g/dL Albumin (3.4-5.0) g/dL Globulin (2.0-3.5) g/dL Albumin/Globulin Ratio (1.3-2.8) TSH 3rd Generation (0.36-3.74) uIU/mL Result Diagrams: 05/16/17 20:40 05/16/17 20:40 Consult PN Assessment/Plan Procedures: Procedures ALANINE AMINO (ALT) (SGPT) (06/12/13) COMPREHEN METABOLIC PANEL (11/20/13) GLYCOSYLATED HEMOGLOBIN TEST (11/20/13) LIPID PANEL (01/17/17) MEDICAL NUTRITION INDIV IN (02/07/17) METABOLIC PANEL TOTAL CA (01/17/17) MRI JOINT UPR EXTREM W/O DYE (03/16/16) ROUTINE VENIPUNCTURE (01/17/17) TRANSFERASE (AST) (SGOT) (06/12/13) UR ALBUMIN SEMIQUANTITATIVE (11/20/13) X-RAY EXAM KNEE 4 OR MORE (08/12/14) X-RAY EXAM OF KNEE 3 (02/22/15) X-RAY EXAM OF SHOULDER (03/14/16) Problem List Initiated/Reviewed/Updated: Yes Plan: impending upper airway compromise; likely related to ABY inhibitor use Solumedrol 125 mg IV given trial duoneb CXR reviewed Anesthesia consulted for emergent intubation I called and spoke with Dr Justin Lora regarding emergency transfer. eGovanny Adamson MD
--- NOTE | 2017-05-17 00:07 | PCM.SN ---
- Free Text/Narrative Note: Called emergently for intubation reportedly in respiratory distress/pending respiratory arrest for airway provision. SEWING TEACHER called me, transport team at bedside; patient in sitting position. Morbid obsesity, , class IV airway, 97% SpO2 on 10l/min O2. Indirect laryngoscopy anticipated so Storz and glidescope were both available. Patient able to affirm that he would be sedated/ anesthetized before we put in his airway. vitals per ER record, sinus tachycardia. On giving etomidate (50 mg total) and succinyl choline (160 mg) his mouth was opened and indirect hazy but identifiable arytenoids and cords identified. #7.5 OET with stylet used and ventilation provided. Bilateral breath sounds, CO2 confirmed and OET secured at 23 cm teeth anteriorly. further management given to the transport team and Respiratory therapist. Anesthesia equipment returned to origin. total time elapsed for our intervention and presence of 100 minutes.
--- NOTE | 2017-05-17 10:52 | CR ---
EXAM DATE: 05/16/17 PATIENT'S AGE: 52 Patient: DARREN MENDOSA Facility: [place], [place] Site . Site : 1965 Study: XRay Chest [id number]/2018 9:58:45 PM Ordering Physician: Doctor Turpin Final Report: Indication: Shortness of breath, chest pain Technique: Chest 1 view Comparison: May 15, 2017. Findings/Impression: Stable cardiac mediastinal silhouette. Patchy opacity at the medial right lung base may represent atelectasis or infection. No significant effusion. No pneumothorax. Dictated by Yamilex Wong MD @ May 16 2017 10:13PM (Electronic Signature) Report Signed by Proxy. FARRA[facility]
--- NOTE | 2017-05-17 10:53 | CR ---
EXAM DATE: 05/16/17 PATIENT'S AGE: 52 Patient: DARREN MENDSOA Facility: [place], [place] Site . Site : 1965 Study: XRay Chest [id number]/2018 11:51:44 PM Ordering Physician: Doctor Turpin Final Report: INDICATION: post intubation TECHNIQUE: Single view of the chest. COMPARISON: May 16, 2017. FINDINGS/IMPRESSION: Interval intubation with the endotracheal tube 3.3 cm above the rita. Stable lines and cardiac silhouette accounting for difference in positioning and low lung volumes. Dictated by Karlo Hamlin MD @ 05/17/2017 12:24:06 AM Dictated by: Karlo Hamlin MD @ 05/17/2017 00:24:14 (Electronic Signature) Report Signed by Proxy. [facility]
== END 2017-05-17 00:04 | disposition other institution (70) ==
LOC: MW.ED 20:23
DX: I11.0 Hypertensive heart disease with heart failure (principal); I50.9 Heart failure, unspecified; J98.8 Other specified respiratory disorders; R41.82 Altered mental status, unspecified; E11.9 Type 2 diabetes mellitus without complications; E78.00 Pure hypercholesterolemia, unspecified; Z79.82 Long term (current) use of aspirin; Z79.899 Other long term (current) drug therapy; Z87.891 Personal history of nicotine dependence
CPT/HCPCS: 36415; 36600; 71045; 80053; 81001; 82140; 82803; 83605; 83880; 84443; 84484; 85025; 85610; 87040; 93005; 94640; 96361; 96365; 96367; 96375; 99291; 99292; A9270; J0330; J2060; J2543; J2930; J3370; J7030; J7040; J7050; 31500; 99285; J2704

== ENCOUNTER 2018-05-05 01:01 | Emergency (ER) | payer OTHER ==
--- NOTE | 2018-05-05 01:12 | EDM.PDOC ---
ED HPI GENERAL MEDICAL PROBLEM - General Stated Complaint: RT BIG TOE HURTS Time Seen by Provider: 05/05/18 01:11 Source of Information: Reports: Patient - History of Present Illness INITIAL COMMENTS - FREE TEXT/NARRATIVE: HISTORY AND PHYSICAL: History of present illness: [A shunt presents with right great toe pain 7 out of 10 nonradiating began acutely is had intermittent symptoms several times in the past which last for a day and resolve on their own has not seen a provider for this problem ] Review of systems: As per history of present illness and below otherwise all systems reviewed and negative. Past medical history: As per history of present illness and as reviewed below otherwise noncontributory. Surgical history: As per history of present illness and as reviewed below otherwise noncontributory. Social history: No reported history of drug or alcohol abuse. Family history: As per history of present illness and as reviewed below otherwise noncontributory. Physical exam: HEENT: Atraumatic, normocephalic, pupils reactive, negative for conjunctival pallor or scleral icterus, mucous membranes moist, throat clear, neck supple, nontender, trachea midline. Lungs: Clear to auscultation, breath sounds equal bilaterally, chest nontender. Heart: S1S2, regular, negative for clicks, rubs, or JVD. Abdomen: Soft, nondistended, nontender. Negative for masses or hepatosplenomegaly. Negative for costovertebral tenderness. Pelvis: Stable nontender. Genitourinary: Deferred. Rectal: Deferred. Extremities: Atraumatic, negative for cords or calf pain. Neurovascular unremarkable. Neuro: Awake, alert, oriented. Cranial nerves II through XII unremarkable. Cerebellum unremarkable. Motor and sensory unremarkable throughout. Exam nonfocal. Diagnostics: [CBC, uric acid Right foot 2 views ] Therapeutics: [Indocin Solu-Medrol 125 mg IM Stop hydrochlorothiazide ] Impression: Acute gout definitive disposition and diagnosis as appropriate pending reevaluation and review of above. Right Foot Pain Score (Numeric/FACES): 10 - Related Data Allergies Allergy/AdvReac Type Severity Reaction Status Date / Time lisinopril Allergy Anaphylactic Verified 05/05/18 01:14 Shock Home Meds: Home Meds Acetaminophen 325 mg PO DAILY 05/05/18 [History] Aspirin 81 mg PO DAILY 05/05/18 [History] Citalopram Hydrobromide [Celexa] 40 mg PO DAILY 05/05/18 [History] Diclofenac Sodium [Voltaren] 75 mg PO DAILY 05/05/18 [History] Furosemide 20 mg PO DAILY 05/05/18 [History] Losartan [Cozaar] 25 mg PO DAILY 05/05/18 [History] Losartan [Cozaar] 50 mg PO DAILY 05/05/18 [History] Multivitamin [One Daily] 1 mg PO DAILY 05/05/18 [History] Potassium Chloride 10 meq PO DAILY 05/05/18 [History] QUEtiapine Fumarate [Seroquel Xr] 50 mg PO DAILY 05/05/18 [History] Simvastatin [Zocor] 40 mg PO BEDTIME 05/05/18 [History] amLODIPine Besylate [Amlodipine Besylate] 10 mg PO DAILY 05/05/18 [History] hydroCHLOROthiazide [Hydrochlorothiazide] 50 mg PO DAILY 05/05/18 [History] metFORMIN HCl [Metformin HCl] 1,000 mg PO DAILY 05/05/18 [History] metFORMIN HCl [Metformin HCl] 500 mg PO DAILY 05/05/18 [History] Past Medical History HEENT History: Reports: None Other HEENT History: Patient states difficulty hearing at times- low tones are hard to hear Cardiovascular History: Reports: High Cholesterol, Hypertension, SOB on Exertion. Denies: Afib, Blood Clots/VTE/DVT, CAD, [place] Respiratory History: Reports: Bronchitis, Recurrent, Sleep Apnea (CPAP), SOB Gastrointestinal History: Reports: None. Denies: GERD, GI Bleed Genitourinary History: Reports: None. Denies: Chronic Renal Insuffiency Musculoskeletal History: Reports: None Neurological History: Reports: None. Denies: CVA, MS, Seizure, TIA Other Neuro History: occasional migraines Psychiatric History: Reports: Anxiety, Depression Endocrine/Metabolic History: Reports: Diabetes, Type II (currently not taking any medications.) Hematologic History: Reports: None Immunologic History: Reports: None Oncologic (Cancer) History: Reports: None Dermatologic History: Reports: None - Infectious Disease History Infectious Disease History: Reports: Chicken Pox, Measles, Mumps - Past Surgical History Musculoskeletal Surgical History: Reports: Other (See Below) Other Musculoskeletal Surgeries/Procedures:: surgery to knees & foot and shoulder Social & Family History - Family History Family Medical History: Noncontributory - Caffeine Use Caffeine Use: Reports: Coffee, Soda (upwards of 104 oz Mountain Dew daily) - Living Situation & Occupation Living situation: Reports: Single Occupation: Employed ED ROS GENERAL - Review of Systems Review Of Systems: See Below ED EXAM, GENERAL - Physical Exam Exam: See Below Course - Vital Signs Last Recorded V/S: Last Vital Signs Temp 98 F 05/05/18 01:14 Pulse 94 05/05/18 01:14 Resp 18 05/05/18 01:14 BP 131/71 05/05/18 01:14 Pulse Ox 94 L 05/05/18 01:14 - Orders/Labs/Meds Labs: Laboratory Tests 05/05/18 05/05/18 Range/Units 01:27 01:27 WBC 13.42 H (4.0-11.0) K/uL RBC 4.53 (4.50-5.90) M/uL Hgb 14.0 (13.0-17.0) g/dL Hct 40.3 (38.0-50.0) % MCV 89.0 (80.0-98.0) fL MCH 30.9 (27.0-32.0) pg MCHC 34.7 (31.0-37.0) g/dL RDW Std Deviation 43.2 (28.0-62.0) fl RDW Coeff of Tita 14 (11.0-15.0) % Plt Count 253 (150-400) K/uL MPV 9.50 (7.40-12.00) fL Neut % (Auto) 66.4 (48.0-80.0) % Lymph % (Auto) 18.1 (16.0-40.0) % [place] % (Auto) 9.9 (0.0-15.0) % Eos % (Auto) 5.1 (0.0-7.0) % Baso % (Auto) 0.5 (0.0-1.5) % Neut # (Auto) 8.9 H (1.4-5.7) K/uL Lymph # (Auto) 2.4 (0.6-2.4) K/uL [place] # (Auto) 1.3 H (0.0-0.8) K/uL Eos # (Auto) 0.7 (0.0-0.7) K/uL Baso # (Auto) 0.1 (0.0-0.1) K/uL Uric Acid 9.8 H (2.6-7.2) mg/dL Meds: Medications Discontinued Medications Generic Name Dose Route Start Last Admin Trade Name Carlie PRN Reason Stop Dose Admin Indomethacin 50 mg 05/05/18 02:15 Indocin PO 05/05/18 02:16 ONETIME ONE Methylprednisolone Sodium Succinate 125 mg 05/05/18 02:16 Solu-Medrol IM 05/05/18 02:17 ONETIME ONE Departure - Departure Time of Disposition: Disposition: Home, Self-Care 01 Condition: Good Clinical Impression: Acute gout - Discharge Information Referrals: PCP,None [Primary Care Provider] - Additional Instructions: Gout diet as discussed Return if symptoms persist or worsen Follow-up with primary care in 2 weeks sooner as needed Stop hydrochlorothiazide The following information is given to patients seen in the emergency department who are being discharged to home. This information is to outline your options for follow-up care. We provide all patients seen in our emergency department with a follow-up referral. The need for follow-up, as well as the timing and circumstances, are variable depending upon the specifics of your emergency department visit. If you don't have a primary care physician on staff, we will provide you with a referral. We always advise you to contact your personal physician following an emergency department visit to inform them of the circumstance of the visit and for follow-up with them and/or the need for any referrals to a consulting specialist. The emergency department will also refer you to a specialist when appropriate. This referral assures that you have the opportunity for follow-up care with a specialist. All of these measure are taken in an effort to provide you with optimal care, which includes your follow-up. Under all circumstances we always encourage you to contact your private physician who remains a resource for coordinating your care. When calling for follow-up care, please make the office aware that this follow-up is from your recent emergency room visit. If for any reason you are refused follow-up, please contact the [facility] emergency department at and asked to speak to the emergency department charge nurse.
--- NOTE | 2018-05-05 01:30 | CR ---
INDICATION: Pain. COMPARISON: None. FINDINGS/IMPRESSION: Right foot, 2 views. Nonspecific mild soft tissue swelling over the dorsum of the foot. No fracture or dislocation identified. No definite osseous erosions. Mild DJD changes at the 1st MTP joint. Dictated by Demetrio Fournier MD @ 05/05/2018 1:28:51 AM Dictated by: Demetrio Fournier MD @ 05/05/2018 01:29:43 (Electronically Signed)
[2018-05-05] MEDS ORDERED: Indomethacin 25 MG Cap PO ONE (02:15)
[2018-05-05] MEDS ORDERED: methylPREDNISolone Sodium Succinate 125 MG/2 ML SDV IM ONE (02:16)
== END 2018-05-05 02:42 | disposition home or self-care (01) ==
LOC: MW.ED 01:01
DX: M10.9 Gout, unspecified (principal); I10 Essential (primary) hypertension; E11.9 Type 2 diabetes mellitus without complications; F41.9 Anxiety disorder, unspecified; F32.9 Major depressive disorder, single episode, unspecified; Z88.8 Allergy status to other drugs, medicaments and biological substances; Z98.2 Presence of cerebrospinal fluid drainage device; Z79.899 Other long term (current) drug therapy; Z79.84 Long term (current) use of oral hypoglycemic drugs
CPT/HCPCS: 36415; 73620; 84550; 85025; 96372; 99283; A9270; J2930

== ENCOUNTER 2018-11-14 10:09 | Emergency (ER) | payer OTHER ==
[2018-11-14] MEDS ORDERED: Sodium Chloride 0.9% 2.5 ML Syringe FLUSH PRN (10:22)
[2018-11-14] MEDS ORDERED: Sodium Chloride 0.9% 10 ML Syringe FLUSH PRN (10:22)
--- NOTE | 2018-11-14 10:32 | EDM.PDOC ---
ED HPI GENERAL MEDICAL PROBLEM - General Chief Complaint: Skin Complaint Stated Complaint: LT LEG COMPLAINT--SENT FROM [facility] Time Seen by Provider: 11/14/18 10:13 Source of Information: Reports: Patient History Limitations: Reports: No Limitations - History of Present Illness INITIAL COMMENTS - FREE TEXT/NARRATIVE: History of present illness: []Patient started having redness of his left leg a week ago. He denies any trauma, has had one episode of fevers and has no difficulty walking. Patient was seen at the [facility] and sent here for further evaluation. Eyes any chest pain or shortness of breath. Review of systems: As per history of present illness and below otherwise all systems reviewed and negative. Past medical history: As per history of present illness and as reviewed below otherwise noncontributory. Surgical history: As per history of present illness and as reviewed below otherwise noncontributory. Social history: No reported history of drug or alcohol abuse. Family history: As per history of present illness and as reviewed below otherwise noncontributory. Physical exam: General: Well developed, well nourished in NAD HEENT: Atraumatic, normocephalic, pupils reactive, negative for conjunctival pallor or scleral icterus, mucous membranes moist, throat clear, neck supple, nontender, trachea midline. Lungs: Clear to auscultation, breath sounds equal bilaterally, chest nontender. Heart: S1S2, regular, negative for clicks, rubs, or JVD. Abdomen: NABS, Soft, nondistended, nontender. Negative for masses or hepatosplenomegaly. Negative for costovertebral tenderness. Pelvis: Stable nontender. Genitourinary: Deferred. Rectal: Deferred. Extremities: Atraumatic, negative for cords or calf pain. Neurovascular unremarkable. Neuro: Awake, alert, oriented. Cranial nerves II through XII unremarkable. Cerebellum unremarkable. Motor and sensory unremarkable throughout. Exam nonfocal. Skin:warm and dry Diagnostics: Doppler ultrasound ruled out DVT, CBC, chemistry, blood cultures, lactic acid Therapeutics: IV hydration, ceftriaxone ED Course: Stable Impression: left leg cellulitis Prescriptions: Keflex Plan: Take meds as directed, follow up with your primary care physician, return to ER if symptoms worsen or change. Definitive disposition and diagnosis as appropriate pending reevaluation and review of above. LLE Pain Score (Numeric/FACES): 6 - Related Data Allergies Allergy/AdvReac Type Severity Reaction Status Date / Time lisinopril Allergy Anaphylactic Verified 11/14/18 10:19 Shock Home Meds: Home Meds Acetaminophen 325 mg PO DAILY 05/05/18 [History] Aspirin 81 mg PO DAILY 05/05/18 [History] Citalopram Hydrobromide [Celexa] 40 mg PO DAILY 05/05/18 [History] Furosemide 30 mg PO BID 05/05/18 [History] Losartan [Cozaar] 25 mg PO DAILY 05/05/18 [History] Losartan [Cozaar] 100 mg PO DAILY 05/05/18 [History] Potassium Chloride 10 meq PO BID 05/05/18 [History] QUEtiapine Fumarate [Seroquel Xr] 1 - 2 tab PO BEDTIME 05/05/18 [History] hydroCHLOROthiazide [Hydrochlorothiazide] 50 mg PO DAILY 05/05/18 [History] metFORMIN HCl [Metformin HCl] 1,000 mg PO BID 05/05/18 [History] Albuterol Sulfate [Proair Respiclick] 2 puff IH Q6HR PRN 11/14/18 [History] Cephalexin [Keflex] 500 mg PO TID #30 capsule 11/14/18 [Rx] Diclofenac Sodium [Voltaren 1%] 1 applic TP QID PRN 11/14/18 [History] Meloxicam [Mobic] 7.5 mg PO DAILY 11/14/18 [History] Past Medical History HEENT History: Reports: None Other HEENT History: Patient states difficulty hearing at times- low tones are hard to hear Cardiovascular History: Reports: High Cholesterol, Hypertension, SOB on Exertion Respiratory History: Reports: Bronchitis, Recurrent, Sleep Apnea, SOB Gastrointestinal History: Reports: None Genitourinary History: Reports: None Musculoskeletal History: Reports: None Neurological History: Reports: None Other Neuro History: occasional migraines Psychiatric History: Reports: Anxiety, Depression Endocrine/Metabolic History: Reports: Diabetes, Type II Hematologic History: Reports: None Immunologic History: Reports: None Oncologic (Cancer) History: Reports: None Dermatologic History: Reports: None - Infectious Disease History Infectious Disease History: Reports: Chicken Pox, Measles, Mumps - Past Surgical History Musculoskeletal Surgical History: Reports: Other (See Below) Other Musculoskeletal Surgeries/Procedures:: surgery to knees & foot and shoulder Social & Family History - Family History Family Medical History: Noncontributory - Tobacco Use Smoking Status *Q: Never Smoker - Caffeine Use Caffeine Use: Reports: Coffee, Soda, Tea - Recreational Drug Use Recreational Drug Use: No - Living Situation & Occupation Living situation: Reports: Single Occupation: Employed ED ROS GENERAL - Review of Systems Review Of Systems: See Below ED EXAM, SKIN/RASH Exam: See Below Course - Vital Signs Last Recorded V/S: Last Vital Signs Temp 96.8 F 11/14/18 10:17 Pulse 84 11/14/18 10:17 Resp 16 11/14/18 10:17 BP 130/81 11/14/18 10:17 Pulse Ox 96 11/14/18 10:17 - Orders/Labs/Meds Orders: Active Orders 24 hr Category Date Time Status CULTURE BLOOD [BC] Stat Lab 11/14/18 10:42 Received CULTURE BLOOD [BC] Stat Lab 11/14/18 10:58 Received Sodium Chloride 0.9% [Saline Flush] Med 11/14/18 10:22 Active 10 ml FLUSH ASDIRECTED PRN Sodium Chloride 0.9% [Saline Flush] Med 11/14/18 10:22 Active 2.5 ml FLUSH ASDIRECTED PRN cefTRIAXone [Rocephin in Dextrose,Iso-Osm 1 GM/50 ML] 1 Med 11/14/18 11:53 Ordered gm Premix Bag 1 bag IV ONETIME Blood Culture x2 Reflex Set [OM.PC] Stat Oth 11/14/18 10:22 Ordered Saline Lock Insert [OM.PC] Stat Oth 11/14/18 10:22 Ordered Medication Orders Ceftriaxone Sodium/Dextrose 1 (gm/ Premix) 50 mls @ 100 mls/hr IV ONETIME ONE Stop: 11/14/18 12:22 Sodium Chloride (Saline Flush) 10 ml FLUSH ASDIRECTED PRN PRN Reason: Keep Vein Open Sodium Chloride (Saline Flush) 2.5 ml FLUSH ASDIRECTED PRN PRN Reason: Keep Vein Open Labs: Laboratory Tests 11/14/18 11/14/18 11/14/18 Range/Units 10:42 10:42 10:42 WBC 10.61 (4.0-11.0) K/uL RBC 4.56 (4.50-5.90) M/uL Hgb 13.9 (13.0-17.0) g/dL Hct 42.0 (38.0-50.0) % MCV 92.1 (80.0-98.0) fL MCH 30.5 (27.0-32.0) pg MCHC 33.1 (31.0-37.0) g/dL RDW Std Deviation 47.1 (28.0-62.0) fl RDW Coeff of Tita 14 (11.0-15.0) % Plt Count 297 (150-400) K/uL MPV 9.70 (7.40-12.00) fL Add Manual Diff YES Neutrophils % (Manual) 57 (48.0-80.0) % Band Neutrophils % 1 % Lymphocytes % (Manual) 28 (16.0-40.0) % Monocytes % (Manual) 8 (0.0-15.0) % Eosinophils % (Manual) 6 (0.0-7.0) % Nucleated RBC % 0.0 /100WBC Absolute Seg Neuts 6.0 H (1.4-5.7) Band Neutrophils # 0.1 Lymphocytes # (Manual) 3.0 H (0.6-2.4) Monocytes # (Manual) 0.8 (0.0-0.8) Eosinophils # (Manual) 0.6 (0.0-0.7) Nucleated RBCs # 0 K/uL Lactate 1.2 (0.20-2.00) mmol/L Sodium 139 (136-148) mmol/L Potassium 4.5 (3.5-5.1) mmol/L Chloride 105 (98-107) mmol/L Carbon Dioxide 22.3 (21.0-32.0) mmol/L BUN 18 (7.0-18.0) mg/dL Creatinine 1.3 (0.8-1.3) mg/dL Est Cr Clr Drug Dosing 66.47 mL/min Estimated GFR (MDRD) 58.0 ml/min Glucose 144 H (74-106) mg/dL Calcium 9.4 (8.5-10.1) mg/dL Total Bilirubin 0.3 (0.2-1.0) mg/dL AST 40 H (15-37) IU/L ALT 45 (14-63) IU/L Alkaline Phosphatase 74 (46-116) U/L Total Protein 7.4 (6.4-8.2) g/dL Albumin 3.1 L (3.4-5.0) g/dL Globulin 4.3 H (2.6-4.0) g/dL Albumin/Globulin Ratio 0.7 L (0.9-1.6) Meds: Medications Generic Name Dose Route Start Last Admin Trade Name Freq PRN Reason Stop Dose Admin Ceftriaxone Sodium/Dextrose 1 50 mls @ 100 mls/hr 11/14/18 11:53 gm/ Premix IV 11/14/18 12:22 ONETIME ONE Sodium Chloride 10 ml 11/14/18 10:22 Saline Flush FLUSH ASDIRECTED PRN Keep Vein Open Sodium Chloride 2.5 ml 11/14/18 10:22 Saline Flush FLUSH ASDIRECTED PRN Keep Vein Open Departure - Departure Time of Disposition: 12:20 Disposition: Home, Self-Care 01 Condition: Good Clinical Impression: Cellulitis of left leg - Discharge Information *PRESCRIPTION DRUG MONITORING PROGRAM REVIEWED*: Not Applicable *COPY OF PRESCRIPTION DRUG MONITORING REPORT IN PATIENT CRYSTAL: Not Applicable Prescriptions: Cephalexin [Keflex] 500 mg PO TID #30 capsule Referrals: Sammy Graff [employer] [Primary Care Provider] - Forms: ED Department Discharge Additional Instructions: The following information is given to patients seen in the emergency department who are being discharged to home. This information is to outline your options for follow-up care. We provide all patients seen in our emergency department with a follow-up referral. The need for follow-up, as well as the timing and circumstances, are variable depending upon the specifics of your emergency department visit. If you don't have a primary care physician on staff, we will provide you with a referral. We always advise you to contact your personal physician following an emergency department visit to inform them of the circumstance of the visit and for follow-up with them and/or the need for any referrals to a consulting specialist. The emergency department will also refer you to a specialist when appropriate. This referral assures that you have the opportunity for follow-up care with a specialist. All of these measure are taken in an effort to provide you with optimal care, which includes your follow-up. Under all circumstances we always encourage you to contact your private physician who remains a resource for coordinating your care. When calling for follow-up care, please make the office aware that this follow-up is from your recent emergency room visit. If for any reason you are refused follow-up, please contact the [facility] Emergency Department at and asked to speak to the emergency department charge nurse. Take meds as directed, follow up with your primary care physician, return to ER if symptoms worsen or change. [facility] [address] [place] [id number] - My Orders Last 24 Hours: My Active Orders 11/14/18 10:22 Sodium Chloride 0.9% [Saline Flush] 10 ml FLUSH ASDIRECTED PRN Sodium Chloride 0.9% [Saline Flush] 2.5 ml FLUSH ASDIRECTED PRN Blood Culture x2 Reflex Set [OM.PC] Stat Saline Lock Insert [OM.PC] Stat 11/14/18 10:42 CULTURE BLOOD [BC] Stat 11/14/18 10:58 CULTURE BLOOD [BC] Stat 11/14/18 11:53 cefTRIAXone [Rocephin in Dextrose,Iso-Osm 1 GM/50 ML] 1 gm Premix Bag 1 bag IV ONETIME - Assessment/Plan Last 24 Hours: My Active Orders 11/14/18 10:22 Sodium Chloride 0.9% [Saline Flush] 10 ml FLUSH ASDIRECTED PRN Sodium Chloride 0.9% [Saline Flush] 2.5 ml FLUSH ASDIRECTED PRN Blood Culture x2 Reflex Set [OM.PC] Stat Saline Lock Insert [OM.PC] Stat 11/14/18 10:42 CULTURE BLOOD [BC] Stat 11/14/18 10:58 CULTURE BLOOD [BC] Stat 11/14/18 11:53 cefTRIAXone [Rocephin in Dextrose,Iso-Osm 1 GM/50 ML] 1 gm Premix Bag 1 bag IV ONETIME
[2018-11-14 11:25] LABS: CARBON DIOXIDE,CO2 22.3 mmol/L (21.0-32.0); POTASSIUM,K 4.5 mmol/L (3.5-5.1)
--- NOTE | 2018-11-14 11:41 | US ---
INDICATION: Left leg pain, swelling and redness for 3 days. TECHNIQUE: Grayscale two-dimensional ultrasound without and with compression as well as color-flow and spectral Doppler of the left lower extremity veins. COMPARISON: None. FINDINGS: Normal compressibility of and flow within the left common femoral, superficial femoral, popliteal, posterior tibial, profunda, and greater saphenous veins is demonstrated. No thrombus is identified. IMPRESSION: Negative left lower extremity venous Doppler study. Dictated by Edward Crystal MD @ Nov 14 2018 11:40AM Signed by Dr. Edward Crystal @ Nov 14 2018 11:40AM
[2018-11-14] MEDS ORDERED: cefTRIAXone 1 GM in Premix Bag 1 BAG IV ONE (11:53)
== END 2018-11-14 12:40 | disposition home or self-care (01) ==
LOC: MW.ED 10:09
DX: L03.116 Cellulitis of left lower limb (principal); E11.9 Type 2 diabetes mellitus without complications; F32.9 Major depressive disorder, single episode, unspecified; F41.9 Anxiety disorder, unspecified; I10 Essential (primary) hypertension; Z79.82 Long term (current) use of aspirin; Z79.51 Long term (current) use of inhaled steroids; Z79.84 Long term (current) use of oral hypoglycemic drugs; Z88.8 Allergy status to other drugs, medicaments and biological substances
CPT/HCPCS: 36415; 80053; 83605; 85025; 87040; 93971; 96365; 99284; J0696

== ENCOUNTER 2018-11-14 23:59 | Emergency (ER) | payer OTHER ==
[2018-11-15] MEDS ORDERED: Ketorolac 60 MG/2 ML SDV IM ONE (00:23)
--- NOTE | 2018-11-15 00:27 | EDM.PDOC ---
ED HPI GENERAL MEDICAL PROBLEM - General Chief Complaint: Chest Pain Stated Complaint: RT SIDE HURTS Time Seen by Provider: 11/15/18 00:18 - History of Present Illness INITIAL COMMENTS - FREE TEXT/NARRATIVE: HISTORY AND PHYSICAL: History of present illness: The patient is a 53-year-old male with a history of hypertension fluid overload type 2 diabetes morbid obesity who presents with complaints of right chest wall pain that started suddenly after he sneezed. He says this occurred 10-20 minutes ago and he sneezed very hard and he felt sudden pain in his right anterior lateral chest wall area. Prior to these events he was having no chest wall pain no abdominal pain no fevers chills cough or upper respiratory symptoms and no shortness of breath. He says that now the pain is severe and he cannot take a deep breath or move without discomfort. He did not take any medications prior to coming here. Patient has a history of chronic lower extremity edema which is not new or different. Prior to this he had no other systemic complaints and was eating and drinking normally. The patient has had no other trauma rectally to this area other than as described above Review of systems: As per history of present illness and below otherwise all systems reviewed and negative. Past medical history: As per history of present illness and as reviewed below otherwise noncontributory. Surgical history: As per history of present illness and as reviewed below otherwise noncontributory. Social history: No reported history of drug or alcohol abuse. Family history: As per history of present illness and as reviewed below otherwise noncontributory. Physical exam: General: Well-developed well-nourished obese man who is speaking clearly without breathlessness and grimaces and makes noises every time he moves his right upper extremity or his trunk. Vital signs are noted by me. HEENT: Atraumatic, normocephalic, negative for conjunctival pallor or scleral icterus, mucous membranes moist, throat clear, neck supple, nontender, trachea midline. Lungs: Clear to auscultation without any wheezing or stridor but the patient does have splinting and will not take a very deep breath,, breath sounds equal bilaterally, chest wall/ribs on the right near the anterior axillary line has tenderness which is reproducible with palpation at the mid rib area but there is no ecchymosis erythema chest wall defects or crepitus. Heart: S1S2, regular, rate and rhythm no overt murmurs Abdomen: Soft, nondistended, nontender. NABS Pelvis: Deferred Genitourinary: Deferred. Rectal: Deferred. Extremities: Atraumatic, negative for cords or calf pain. Neurovascular unremarkable. 1+ pitting edema bilaterally Neuro: Awake, alert, oriented. Cranial nerves II through XII unremarkable. Cerebellum unremarkable. Motor and sensory unremarkable throughout. Exam nonfocal. Diagnostics: Right ribs with chest x-ray Therapeutics: Toradol IM Impression: Right chest wall pain/strain status post sneeze Definitive disposition and diagnosis as appropriate pending reevaluation and review of above. right lower rib Pain Score (Numeric/FACES): 10 - Related Data Allergies Allergy/AdvReac Type Severity Reaction Status Date / Time lisinopril Allergy Anaphylactic Verified 11/15/18 00:11 Shock Home Meds: Home Meds Acetaminophen 325 mg PO DAILY 05/05/18 [History] Aspirin 81 mg PO DAILY 05/05/18 [History] Citalopram Hydrobromide [Celexa] 40 mg PO DAILY 05/05/18 [History] Furosemide 30 mg PO BID 05/05/18 [History] Losartan [Cozaar] 100 mg PO DAILY 05/05/18 [History] Potassium Chloride 10 meq PO BID 05/05/18 [History] QUEtiapine Fumarate [Seroquel Xr] 1 - 2 tab PO BEDTIME 05/05/18 [History] hydroCHLOROthiazide [Hydrochlorothiazide] 50 mg PO DAILY 05/05/18 [History] metFORMIN HCl [Metformin HCl] 1,000 mg PO BID 05/05/18 [History] Albuterol Sulfate [Proair Respiclick] 2 puff IH Q6HR PRN 11/14/18 [History] Diclofenac Sodium [Voltaren 1%] 1 applic TP QID PRN 11/14/18 [History] Meloxicam [Mobic] 7.5 mg PO DAILY 11/14/18 [History] Past Medical History HEENT History: Reports: None Other HEENT History: Patient states difficulty hearing at times- low tones are hard to hear Cardiovascular History: Reports: Heart Failure, High Cholesterol, Hypertension, SOB on Exertion Respiratory History: Reports: Bronchitis, Recurrent, Sleep Apnea, SOB Gastrointestinal History: Reports: None Genitourinary History: Reports: None Musculoskeletal History: Reports: None Neurological History: Reports: None Other Neuro History: occasional migraines Psychiatric History: Reports: Anxiety, Depression Endocrine/Metabolic History: Reports: Diabetes, Type II Hematologic History: Reports: None Immunologic History: Reports: None Oncologic (Cancer) History: Reports: None Dermatologic History: Reports: None - Infectious Disease History Infectious Disease History: Reports: Chicken Pox, Measles, Mumps - Past Surgical History Musculoskeletal Surgical History: Reports: Other (See Below) Other Musculoskeletal Surgeries/Procedures:: surgery to knees & foot and shoulder Social & Family History - Family History Family Medical History: Noncontributory - Tobacco Use Smoking Status *Q: Never Smoker - Caffeine Use Caffeine Use: Reports: Coffee, Soda, Tea - Recreational Drug Use Recreational Drug Use: No - Living Situation & Occupation Living situation: Reports: Single Occupation: Employed ED ROS GENERAL - Review of Systems Review Of Systems: ROS reveals no pertinent complaints other than HPI. ED EXAM, GENERAL - Physical Exam Exam: See Below (See dictation) Course - Vital Signs Last Recorded V/S: Last Vital Signs Temp 35.8 C 11/15/18 00:01 Pulse 103 H 11/15/18 00:01 Resp 18 11/15/18 00:01 BP 135/77 11/15/18 00:01 Pulse Ox 93 L 11/15/18 00:01 - Orders/Labs/Meds Meds: Medications Discontinued Medications Generic Name Dose Route Start Last Admin Trade Name Carlie PRN Reason Stop Dose Admin Ketorolac Tromethamine 60 mg 11/15/18 00:23 11/15/18 00:29 Toradol IM 11/15/18 00:24 60 mg ONETIME ONE Administration Departure - Departure Time of Disposition: 01:28 Disposition: Home, Self-Care 01 Condition: Good Clinical Impression: Right-sided chest wall pain - Discharge Information Referrals: PCP,None [Primary Care Provider] - Forms: ED Department Discharge Additional Instructions: The following information is given to patients seen in the emergency department who are being discharged to home. This information is to outline your options for follow-up care. We provide all patients seen in our emergency department with a follow-up referral. The need for follow-up, as well as the timing and circumstances, are variable depending upon the specifics of your emergency department visit. If you don't have a primary care physician on staff, we will provide you with a referral. We always advise you to contact your personal physician following an emergency department visit to inform them of the circumstance of the visit and for follow-up with them and/or the need for any referrals to a consulting specialist. The emergency department will also refer you to a specialist when appropriate. This referral assures that you have the opportunity for followup care with a specialist. All of these measure are taken in an effort to provide you with optimal care, which includes your followup. Under all circumstances we always encourage you to contact your private physician who remains a resource for coordinating your care. When calling for followup care, please make the office aware that this follow-up is from your recent emergency room visit. If for any reason you are refused follow-up, please contact the [facility] emergency department at and ask to speak to the emergency department charge nurse. [facility] Primary care- [place] [address] Use ice to area for next 24 hours and then he can switch to heat. Please use your home medication and you may also add [id number] ibuprofen or Aleve as well as the tramadol/Voltaren you have been given from [facility] Med[facility]. Please only take the newly prescribed medications while you're home as they may make you lightheaded. Please call and schedule follow-up appointment with your provider in the clinic or one of hours for reevaluation and further care next week and return to ER as needed and as discussed
--- NOTE | 2018-11-15 01:23 | CR ---
INDICATION: chest pain after sneeze TECHNIQUE: Chest radiograph, Rib radiographs 3 views right COMPARISON: None FINDINGS: Severe degradation of image quality noted due to body habitus. Mediastinum: The mediastinum is normal in appearance. The heart silhouette is normal in size and morphology. Lung: Both lungs are unremarkable in appearance. No sign of pleural effusion seen. No pneumothorax is identified. Ribs and bones: No definite acute rib fractures are identified in the visualized ribs. Severe right shoulder arthritis noted. Only the inferior right ribs are imaged. Soft tissue: Unremarkable. IMPRESSION: 1. No acute cardiopulmonary disease is seen. No acute rib injuries noted. 2. Severe degradation of image quality noted due to body habitus. Dictated by: Juan Jose Valerio MD @ 11/15/2018 01:21:29 (Electronically Signed)
== END 2018-11-15 01:40 | disposition home or self-care (01) ==
LOC: MW.ED 23:59
DX: R07.89 Other chest pain (principal); I11.0 Hypertensive heart disease with heart failure; I50.9 Heart failure, unspecified; E11.9 Type 2 diabetes mellitus without complications; E78.00 Pure hypercholesterolemia, unspecified; F41.9 Anxiety disorder, unspecified; F32.9 Major depressive disorder, single episode, unspecified; Z79.82 Long term (current) use of aspirin; Z79.899 Other long term (current) drug therapy; Z79.84 Long term (current) use of oral hypoglycemic drugs; Z88.8 Allergy status to other drugs, medicaments and biological substances
CPT/HCPCS: 71101; 96372; 99283; J1885

== ENCOUNTER 2019-04-11 09:38 | Emergency (ER) | payer OTHER ==
--- NOTE | 2019-04-11 10:08 | EDM.PDOC ---
ED HPI GENERAL MEDICAL PROBLEM - General Chief Complaint: Lower Extremity Injury/Pain Stated Complaint: GOUT Time Seen by Provider: 04/11/19 10:01 Source of Information: Reports: Patient History Limitations: Reports: No Limitations - History of Present Illness INITIAL COMMENTS - FREE TEXT/NARRATIVE: This 54 year old male with a history of Gout is admitted to the ED with a chief complaint of severe pain in his left great toe over the past 24 hours. He has had a history of gout but is not getting treatments at this time. He states that he does not know what triggered this attack. Onset: Sudden Duration: Hour(s): (18-24) Location: Reports: Upper Extremity, Left (great toe) Severity: Moderate (can't put weight on his left foot.) Context: Reports: Exercise Associated Symptoms: Reports: No Other Symptoms left great toe Pain Score (Numeric/FACES): 10 - Related Data Allergies Allergy/AdvReac Type Severity Reaction Status Date / Time lisinopril Allergy Anaphylactic Verified 04/11/19 09:51 Shock Home Meds: Home Meds Acetaminophen 325 mg PO DAILY 05/05/18 [History] Aspirin 81 mg PO DAILY 05/05/18 [History] Citalopram Hydrobromide [Celexa] 40 mg PO DAILY 05/05/18 [History] Furosemide 30 mg PO BID 05/05/18 [History] Losartan [Cozaar] 100 mg PO DAILY 05/05/18 [History] Potassium Chloride 10 meq PO BID 05/05/18 [History] QUEtiapine Fumarate [Seroquel Xr] 1 - 2 tab PO BEDTIME 05/05/18 [History] hydroCHLOROthiazide [Hydrochlorothiazide] 50 mg PO DAILY 05/05/18 [History] metFORMIN HCl [Metformin HCl] 1,000 mg PO BID 05/05/18 [History] Albuterol Sulfate [Proair Respiclick] 2 puff IH Q6HR PRN 11/14/18 [History] Diclofenac Sodium [Voltaren 1%] 1 applic TP QID PRN 11/14/18 [History] Meloxicam [Mobic] 7.5 mg PO DAILY 11/14/18 [History] Ibuprofen [Motrin] 800 mg PO BIDM PRN 10 Days #20 tab 04/11/19 [Rx] predniSONE [Prednisone] 30 mg PO DAILY 4 Days #12 tablet 04/11/19 [Rx] Past Medical History HEENT History: Reports: None Other HEENT History: Patient states difficulty hearing at times- low tones are hard to hear Cardiovascular History: Reports: Heart Failure, High Cholesterol, Hypertension, SOB on Exertion Respiratory History: Reports: Bronchitis, Recurrent, Sleep Apnea, SOB Gastrointestinal History: Reports: None Genitourinary History: Reports: None Musculoskeletal History: Reports: None Neurological History: Reports: None Other Neuro History: occasional migraines Psychiatric History: Reports: Anxiety, Depression Endocrine/Metabolic History: Reports: Diabetes, Type II Hematologic History: Reports: None Immunologic History: Reports: None Oncologic (Cancer) History: Reports: None Dermatologic History: Reports: None - Infectious Disease History Infectious Disease History: Reports: Chicken Pox - Past Surgical History Musculoskeletal Surgical History: Reports: Other (See Below) Other Musculoskeletal Surgeries/Procedures:: surgery to knees & foot and shoulder Social & Family History - Family History Family Medical History: Noncontributory - Tobacco Use Smoking Status *Q: Never Smoker - Caffeine Use Caffeine Use: Reports: Coffee, Soda, Tea - Recreational Drug Use Recreational Drug Use: No - Living Situation & Occupation Living situation: Reports: Single Occupation: Employed Review of Systems - Review of Systems Review Of Systems: See Below Constitutional: Reports: No Symptoms Eyes: Reports: No Symptoms Ears: Reports: No Symptoms Nose: Reports: No Symptoms Mouth/Throat: Reports: No Symptoms Respiratory: Reports: No Symptoms Cardiovascular: Reports: No Symptoms GI/Abdominal: Reports: No Symptoms Genitourinary: Reports: No Symptoms Musculoskeletal: Reports: Joint Pain (left great toe) Skin: Reports: Erythema (left great toe) Neurological: Reports: No Symptoms ED EXAM, GENERAL - Physical Exam Exam: See Below Exam Limited By: No Limitations General Appearance: Alert, WD/WN, No Apparent Distress Eye Exam: Bilateral Eye: Normal Inspection, PERRL Ears: Normal External Exam, Normal Canal, Hearing Grossly Normal, Normal TMs Ear Exam: Bilateral Ear: Auricle Normal, Canal Normal, TM normal Nose: Normal Inspection, Normal Mucosa, No Blood Throat/Mouth: Normal Inspection, Normal Lips, Normal Teeth, Normal Gums, Normal Oropharynx, Normal Voice, No Airway Compromise Head: Atraumatic, Normocephalic Neck: Normal Inspection, Supple, Non-Tender, Full Range of Motion Respiratory/Chest: No Respiratory Distress, Lungs Clear, Normal Breath Sounds, No Accessory Muscle Use, Chest Non-Tender Cardiovascular: Normal Peripheral Pulses, Regular Rate, Rhythm, No Edema, No Gallop, No JVD, No Murmur, No Rub Peripheral Pulses: 3+: Dorsalis Pedis (L), Dorsalis Pedis (R) GI/Abdominal: Normal Bowel Sounds, Soft, Non-Tender, No Organomegaly, No Distention, No Abnormal Bruit, No Mass (Male) Exam: Deferred Rectal (Males) Exam: Deferred Back Exam: Normal Inspection, Full Range of Motion Extremities: Other (painful, tender, swollen left great toe) Psychiatric: Normal Affect Skin Exam: Warm, Dry, Intact, Normal Color, No Rash Course - Vital Signs Text/Narrative:: I discussed with the patient his Uric acid level being elevated. He will be discharged. He agrees with the discharge plan. Last Recorded V/S: Last Vital Signs Temp 97.6 F 04/11/19 09:52 Pulse 93 04/11/19 09:52 Resp 18 04/11/19 09:52 BP 134/88 04/11/19 09:52 Pulse Ox 95 04/11/19 09:52 - Orders/Labs/Meds Orders: Active Orders 24 hr Category Date Time Status predniSONE Med 04/11/19 10:15 Active 50 mg PO STAT Medication Orders Prednisone (Prednisone) 50 mg PO STAT JESSI Last Admin: 04/11/19 10:21 Dose: 50 mg Labs: Laboratory Tests 04/11/19 Range/Units 10:17 Uric Acid 10.6 H (2.6-7.2) mg/dL Meds: Medications Generic Name Dose Route Start Last Admin Trade Name Carlie PRN Reason Stop Dose Admin Prednisone 50 mg 04/11/19 10:15 04/11/19 10:21 Prednisone PO 50 mg STAT JESSI Administration Departure - Departure Time of Disposition: 12:42 Disposition: Home, Self-Care 01 Condition: Good Clinical Impression: Gout attack Qualifiers: Gout site: toe Gout etiology: idiopathic - Discharge Information *PRESCRIPTION DRUG MONITORING PROGRAM REVIEWED*: Yes *COPY OF PRESCRIPTION DRUG MONITORING REPORT IN PATIENT CRYSTAL: Yes Instructions: Low-Purine Eating Plan, Pain Medicine Instructions, [id number] , Gout, [id number] Referrals: [facility] [Primary Care Provider] - Forms: ED Department Discharge Additional Instructions: Take all medications as directed. Please don't take Motrin until you are through with the Prednisone. Follow up with your PCP in the next two to four days. Drink plenty of clear liquids for the next 24-48 hours. Rest for the next 24 hours. Return to the ED if your condition gets worse or should you have any questions or concerns. The following information is given to patients seen in the emergency department who are being discharged to home. This information is to outline your options for follow-up care. We provide all patients seen in our emergency department with a follow-up referral. The need for follow-up, as well as the timing and circumstances, are variable depending upon the specifics of your emergency department visit. If you don't have a primary care physician on staff, we will provide you with a referral. We always advise you to contact your personal physician following an emergency department visit to inform them of the circumstance of the visit and for follow-up with them and/or the need for any referrals to a consulting specialist. The emergency department will also refer you to a specialist when appropriate. This referral assures that you have the opportunity for follow-up care with a specialist. All of these measure are taken in an effort to provide you with optimal care, which includes your follow-up. Under all circumstances we always encourage you to contact your private physician who remains a resource for coordinating your care. When calling for follow-up care, please make the office aware that this follow-up is from your recent emergency room visit. If for any reason you are refused follow-up, please contact the [facility] Emergency Department at and asked to speak to the emergency department charge nurse. Sepsis Event Note - Evaluation Sepsis Screening Result: No Definite Risk - Focused Exam Vital Signs: Vital Signs Temp Pulse Resp BP Pulse Ox 04/11/19 09:52 97.6 F 93 18 134/88 95 Date Exam was Performed: 04/11/19 Time Exam was Performed: 12:41 - My Orders Last 24 Hours: My Active Orders 04/11/19 10:15 predniSONE 50 mg PO STAT - Assessment/Plan Last 24 Hours: My Active Orders 04/11/19 10:15 predniSONE 50 mg PO STAT
[2019-04-11] MEDS ORDERED: predniSONE 20 MG Tab PO SCH (10:15)
== END 2019-04-11 13:16 | disposition home or self-care (01) ==
LOC: MW.ED 09:38
DX: M10.072 Idiopathic gout, left ankle and foot (principal); I10 Essential (primary) hypertension; E78.00 Pure hypercholesterolemia, unspecified; E11.9 Type 2 diabetes mellitus without complications; F41.9 Anxiety disorder, unspecified; F32.9 Major depressive disorder, single episode, unspecified; Z79.899 Other long term (current) drug therapy; Z88.8 Allergy status to other drugs, medicaments and biological substances; Z79.82 Long term (current) use of aspirin; Z79.84 Long term (current) use of oral hypoglycemic drugs
CPT/HCPCS: 36415; 84550; 99283; A9270; 99282

== ENCOUNTER 2019-12-18 14:49 | Emergency (ER) | payer OTHER ==
[2019-12-18] MEDS ORDERED: Colchicine 0.6 MG Tab PO ONE (15:09)
[2019-12-18] MEDS ORDERED: predniSONE 10 MG Tab PO ONE (15:11)
--- NOTE | 2019-12-18 15:13 | EDM.PDOC ---
ED HPI GENERAL MEDICAL PROBLEM - General Chief Complaint: Lower Extremity Injury/Pain Stated Complaint: SWOLLEN RIGHT FOOT Time Seen by Provider: 12/18/19 14:49 Source of Information: Reports: Patient History Limitations: Reports: No Limitations - History of Present Illness INITIAL COMMENTS - FREE TEXT/NARRATIVE: HISTORY AND PHYSICAL: History of present illness: Patient is a 54-year-old male who presents to the emergency room with complaints of right great toe and lateral ankle pain over the past few days. He denies any injury, trauma or falls. He did initially present to the OR clinic for these concerns and they performed an x-ray of the foot/ankle and lab work including a uric acid. All findings were unremarkable. The OR prescribed tramadol twice daily. They recommended he come to the emergency room for evaluation. Review of systems: As per history of present illness and below otherwise all systems reviewed and negative. Past medical history: As per history of present illness and as reviewed below otherwise noncontributory. Surgical history: As per history of present illness and as reviewed below otherwise noncontributory. Social history: See social history for further information Family history: As per history of present illness and as reviewed below otherwise noncontributory. Physical exam: General: Well developed and well nourished. Alert and orientated x 3. Nontoxic in appearance and in no acute distress. Vital signs are stable and have been reviewed by me. Nursing notes were reviewed. HEENT: Atraumatic, normocephalic, pupils equal and reactive bilaterally, negative for conjunctival pallor or scleral icterus, mucous membranes moist, nontender, trachea midline. No drooling or trismus noted. No meningeal signs. No hot potato voice noted. Lungs: Clear to auscultation, breath sounds equal bilaterally, chest nontender. Normal work of breathing, no accessory muscles used. Heart: S1S2, regular rate and rhythm without overt murmur Abdomen: Soft, nondistended, nontender. Negative for masses or hepatosplenomegaly. Negative for costovertebral tenderness. Skin: Mild warmth to right great toe.Intact, warm, dry. No lesions or rashes noted. Hematologic: No petechiae or purpra. Mucosa appropriate color and normal nail bed color and refill. Extremities: Atraumatic, moves all extremities per self without difficulty or deficits, pain with palpation of base of great toe. He is negative for cords or calf pain. No palpable nodules, no skin break down. Neurovascular unremarkable. Neuro: Awake, alert, oriented. Cranial nerves II through XII unremarkable. Cerebellum unremarkable. Motor and sensory unremarkable throughout. Exam nonfocal. Psychiatric: Mood and affect are appropriate. Normal thought process. Answering questions appropriately. Notes: [facility] am able to [facility] which included a CRP which is elevated, uric acid which is within normal range, and normal x-ray finding. Patient's history of gout; not currently taking any steroids or Colchicine. I have spoken with the patient/caregiver and discussed today's findings, in addition to providing specific details for plan of care. Reassessment at the time of disposition demonstrates that the patient is in no acute distress. The patient has remained stable throughout the entire ED visit and is without objective evidence for acute process requiring urgent intervention or hospitalization. The patient is stable for discharge, counseling was provided and we discussed in great detail signs and symptoms that would prompt them to return to the Emergency Department. Medication, follow up and supportive care measures were reviewed and discussed. Voices understanding and is agreeable to plan of care. Denies any further questions or concerns at this time. Diagnostics: None Therapeutics: Colchicine, prednisone Prescription: Prednisone Impression: Gout Plan: 1. Today you received Colchicine 1.2mg now, take the next dose 0.6mg one hour after. Prednisone 30mg once daily x 5 days (first dose was given today). 2. Continue all other home medications as directed. 3. We encourage you to follow up with your primary care provider and/or recommended specialist in the next few days for re-evaluation and further care/management. If your symptoms should worsen, new symptoms develop or any of the signs and symptoms we discussed should arise please return to the emergency room or call 911 (if needed). Definitive disposition and diagnosis as appropriate pending reevaluation and review of above. Right Ankle Pain Score (Numeric/FACES): 8 - Related Data Allergies Allergy/AdvReac Type Severity Reaction Status Date / Time lisinopril Allergy Anaphylactic Verified 12/18/19 15:02 Shock Home Meds: Home Meds Acetaminophen 325 mg PO DAILY 05/05/18 [History] Aspirin 81 mg PO DAILY 05/05/18 [History] Citalopram Hydrobromide [Celexa] 40 mg PO DAILY 05/05/18 [History] Furosemide 30 mg PO BID 05/05/18 [History] Losartan [Cozaar] 100 mg PO DAILY 05/05/18 [History] Potassium Chloride 10 meq PO BID 05/05/18 [History] QUEtiapine Fumarate [Seroquel Xr] 1 - 2 tab PO BEDTIME 05/05/18 [History] hydroCHLOROthiazide [Hydrochlorothiazide] 50 mg PO DAILY 05/05/18 [History] metFORMIN HCl [Metformin HCl] 1,000 mg PO BID 05/05/18 [History] Albuterol Sulfate [Proair Respiclick] 2 puff IH Q6HR PRN 11/14/18 [History] Diclofenac Sodium [Voltaren 1%] 1 applic TP QID PRN 11/14/18 [History] Meloxicam [Mobic] 7.5 mg PO DAILY 11/14/18 [History] Ibuprofen [Motrin] 800 mg PO BIDM PRN 10 Days #20 tab 04/11/19 [Rx] predniSONE [Prednisone] 30 mg PO DAILY 4 Days #12 tablet 04/11/19 [Rx] predniSONE [Prednisone] 30 mg PO DAILY 5 Days #15 tablet 12/18/19 [Rx] Past Medical History HEENT History: Reports: None Other HEENT History: Patient states difficulty hearing at times- low tones are hard to hear Cardiovascular History: Reports: Heart Failure, High Cholesterol, Hypertension, SOB on Exertion Respiratory History: Reports: Bronchitis, Recurrent, Sleep Apnea, SOB Gastrointestinal History: Reports: None Genitourinary History: Reports: None Musculoskeletal History: Reports: None Neurological History: Reports: None Other Neuro History: occasional migraines Psychiatric History: Reports: Anxiety, Depression Endocrine/Metabolic History: Reports: Diabetes, Type II Hematologic History: Reports: None Immunologic History: Reports: None Oncologic (Cancer) History: Reports: None Dermatologic History: Reports: None - Infectious Disease History Infectious Disease History: Reports: Chicken Pox - Past Surgical History Musculoskeletal Surgical History: Reports: Other (See Below) Other Musculoskeletal Surgeries/Procedures:: surgery to knees & foot and shoulder Social & Family History - Family History Family Medical History: Noncontributory - Caffeine Use Caffeine Use: Reports: Coffee, Soda, Tea - Living Situation & Occupation Living situation: Reports: Single Occupation: Employed Review of Systems - Review of Systems Review Of Systems: Comprehensive ROS is negative, except as noted in HPI. ED EXAM, GENERAL - Physical Exam Exam: See Below (See dictation) Course - Vital Signs Last Recorded V/S: Last Vital Signs Temp 97.0 F 12/18/19 15:02 Pulse 83 12/18/19 15:02 Resp 18 12/18/19 15:02 BP 140/89 12/18/19 15:02 Pulse Ox 98 12/18/19 15:02 - Orders/Labs/Meds Meds: Medications Discontinued Medications Generic Name Dose Route Start Last Admin Trade Name Carlie PRN Reason Stop Dose Admin Colchicine 1.8 mg 12/18/19 15:09 Colcrys PO 12/18/19 15:10 ONETIME ONE Prednisone 30 mg 12/18/19 15:11 Prednisone PO 12/18/19 15:12 ONETIME ONE Departure - Departure Time of Disposition: 15:14 Disposition: Home, Self-Care 01 Clinical Impression: Gout Qualifiers: Gout site: foot Gout etiology: unspecified cause Chronicity: acute Laterality: right Qualified Code(s): M10.9 - Gout, unspecified - Discharge Information Prescriptions: predniSONE [Prednisone] 30 mg PO DAILY 5 Days #15 tablet Instructions: Low-Purine Eating Plan Referrals: PCP,Not In Area [Primary Care Provider] - Forms: ED Department Discharge Additional Instructions: The following information is given to patients seen in the emergency department who are being discharged to home. This information is to outline your options for follow-up care. We provide all patients seen in our emergency department with a follow-up referral. The need for follow-up, as well as the timing and circumstances, are variable depending upon the specifics of your emergency department visit. If you don't have a primary care physician on staff, we will provide you with a referral. We always advise you to contact your personal physician following an emergency department visit to inform them of the circumstance of the visit and for follow-up with them and/or the need for any referrals to a consulting specialist. The emergency department will also refer you to a specialist when appropriate. This referral assures that you have the opportunity for follow-up care with a specialist. All of these measure are taken in an effort to provide you with optimal care, which includes your follow-up. Under all circumstances we always encourage you to contact your private physician who remains a resource for coordinating your care. When calling for follow-up care, please make the office aware that this follow-up is from your recent emergency room visit. If for any reason you are refused follow-up, please contact the [facility] Emergency Department at and asked to speak to the emergency department charge nurse. [facility] [address] [place] [address] [facility] [address] [place] [id number] Thank you for choosing the [facility] emergency department in [place] for your medical needs today. It was a pleasure caring for you. Today you were seen in the emergency department for foot and ankle pain. 1. Today you received Colchicine 1.2mg now, take the next dose 0.6mg one hour after. Prednisone 30mg once daily x 5 days (first dose was given today). 2. Continue all other home medications as directed. 3. We encourage you to follow up with your primary care provider and/or recommended specialist in the next few days for re-evaluation and further care/management. If your symptoms should worsen, new symptoms develop or any of the signs and symptoms we discussed should arise please return to the emergency room or call 911 (if needed). Sepsis Event Note (ED) - Evaluation Sepsis Screening Result: No Definite Risk - Focused Exam Vital Signs: Vital Signs Temp Pulse Resp BP Pulse Ox 12/18/19 15:02 97.0 F 83 18 140/89 98
== END 2019-12-18 15:36 | disposition home or self-care (01) ==
LOC: MW.ED 14:49
DX: M10.9 Gout, unspecified (principal); I11.0 Hypertensive heart disease with heart failure; I50.9 Heart failure, unspecified; E11.9 Type 2 diabetes mellitus without complications; F41.9 Anxiety disorder, unspecified; F32.9 Major depressive disorder, single episode, unspecified; Z88.8 Allergy status to other drugs, medicaments and biological substances; Z79.82 Long term (current) use of aspirin; Z79.84 Long term (current) use of oral hypoglycemic drugs; Z79.899 Other long term (current) drug therapy
CPT/HCPCS: 99283; A9270

== ENCOUNTER 2020-02-04 04:32 | Emergency (ER) | payer OTHER ==
[2020-02-04] MEDS ORDERED: Sodium Chloride 0.9% 10 ML Syringe FLUSH PRN (05:05)
[2020-02-04] MEDS ORDERED: Sodium Chloride 0.9% 2.5 ML Syringe FLUSH PRN (05:05)
[2020-02-04] MEDS ORDERED: Albuterol HFA 18 Gm Inhaler INH STA (05:10)
--- NOTE | 2020-02-04 05:10 | EDM.PDOC ---
<Henri Valencia - Last Filed: 02/04/20 06:49> ED HPI GENERAL MEDICAL PROBLEM - General Chief Complaint: Respiratory Problem Stated Complaint: TROUBLE BREATHING Time Seen by Provider: 02/04/20 04:53 - History of Present Illness INITIAL COMMENTS - FREE TEXT/NARRATIVE: HISTORY AND PHYSICAL: History of present illness: This is a 54-year-old gentleman with history significant for hypertension, type 2 diabetes, CHF who presents ER today secondary to shortness of breath x1 to 2 days. Patient reports shortness of breath has been progressively worsening. Patient reports difficulty lying flat in bed. Patient reports no change in his lower extremity edema. Patient reports that he had a nonproductive cough for several days as well as tactile fevers and rhinorrhea. Patient reports that he had a coronavirus test on Saturday which was negative. Patient denies any recent nausea, vomiting, diarrhea, dysuria, frequency, urgency, chest pain, abdominal pain. Patient denies any history of liver, lung, kidney problems. Patient has a history of DVT or PE in the past. Patient has a history of DC/CAD. Patient reports he has a history of allergy to lisinopril. Patient denies any abdominal or chest surgeries in the past. Patient has any tobacco alcohol or drugs. Review of systems: As per history of present illness and below otherwise all systems reviewed and negative. Past medical history: As per history of present illness and as reviewed below otherwise noncontributory. Surgical history: As per history of present illness and as reviewed below otherwise noncontributory. Social history: No reported history of drug or alcohol abuse. Family history: As per history of present illness and as reviewed below otherwise noncontributory. Physical exam: HEENT: Atraumatic, normocephalic, pupils reactive, negative for conjunctival pallor or scleral icterus, mucous membranes moist, throat clear, neck supple, nontender, trachea midline. Lungs: Clear to auscultation, breath sounds equal bilaterally, chest nontender. Heart: S1S2, regular, negative for clicks, rubs, or JVD. Abdomen: Soft, nondistended, obese, nontender. Negative for masses or hepatosplenomegaly. Negative for costovertebral tenderness. Pelvis: Stable nontender. Genitourinary: Deferred. Rectal: Deferred. Extremities: Atraumatic, negative for cords or calf pain. Neurovascular unremarkable. 1+ bipedal edema Neuro: Awake, alert, oriented. Cranial nerves II through XII unremarkable. Cerebellum unremarkable. Motor and sensory unremarkable throughout. Exam nonfocal. Diagnostics: CBC, CMP, BNP, D-dimer, Covid, chest x-ray, EKG, troponin Chest Xray: Normal cardiac silhouette No infiltrates or effusions identified. No PTX No evidence of acute bony fracture. As interpreted by ER MD: Annie Assessment and plan: This is a 54-year-old gentleman who presents the ER today secondary to shortness of breath, orthopnea that is been progressively getting worse over the last several days. Patient has been tested for coronavirus on Saturday and was negative. Patient reports that this evening he was unable to breathe while he was lying flat so he came to the ED. Patient reports he has been having some tactile fevers but none confirmed with thermometer. Patient was reevaluated in the ED multiple times. After patient's labs were returned I went to discuss the results with the patient. During that time, patient's monitor was noted to be in atrial fibrillation with a heart rate of 165. Repeat EKG was performed at that time which revealed A. fib with RVR at a heart rate of 160. Patient's coronavirus test did return back is positive here in the ED. Patient was started on a Cardizem drip of 5 mL/h to be titrated as well as a Cardizem bolus of 10 mg IV. A reduced dose of Cardizem was given secondary to his lower blood pressure to see how he tolerates it. In summary, this is a 54-year-old gentleman who was tested negative for coronavirus on Saturday who presents ER today with increasing shortness of breath. Patient was noted to have a pulse ox of 93% and heart rate of 110 during his initial evaluation. While in the ED, the patient cardioverted into atrial fibrillation with RVR at a rate of 165. Patient's pulse ox has remained stable at 93% on room air. Patient was placed on 2 L of nasal cannula O2 and his pulse ox currently is 95%. Patient reports he feels fairly comfortable from respiratory standpoint. Given patient's A. fib and RVR and his positive coronavirus test, patient will definitely need to be admitted to the hospital for management of his heart rate. Unfortunately here at [facility] we do not have the capacity for admission to the ICU. Patient will need to be transferred. [facility] did [facility] with the patient[facility]. Discussed with [facility], no ICU beds available for coronavirus patients at this time. Discussed with [facility], no ICU beds available for coronavirus patients at this time. Discussed with [facility], they do have availability to accept this patient for transfer. I spoke to Dr. Denson who is agreed to accept patient for transfer and assistance with further inpatient care. Critical Care: The high probability of sudden, clinically significant deterioration in the patient's condition required the highest level of my preparedness to intervene urgently. The services I provided to this patient were to treat and/or prevent clinically significant deterioration. Services included the following: chart data review, reviewing nursing notes and/or old charts, documentation time, network systems consultant collaboration regarding findings and treatment options, medication orders and management, direct patient care, vital sign assessments and ordering, interpreting and reviewing diagnostic studies/lab tests. Aggregate critical care time includes only time during which I was engaged inwork directly related to the patient's care, as described above, whether at the bedside or elsewhere in the Emergency Department. It did not include time spent performing other reported procedures or the services of residents, students, nurses or physician assistants. Critical Care Time: 35 minutes Definitive disposition and diagnosis as appropriate pending reevaluation and review of above. - Related Data Allergies Allergy/AdvReac Type Severity Reaction Status Date / Time lisinopril Allergy Anaphylactic Verified 02/04/20 04:51 Shock Home Meds: Home Meds Acetaminophen 325 mg PO DAILY 05/05/18 [History] Aspirin 81 mg PO DAILY 05/05/18 [History] Citalopram Hydrobromide [Celexa] 40 mg PO DAILY 05/05/18 [History] Furosemide 30 mg PO BID 05/05/18 [History] Losartan [Cozaar] 100 mg PO DAILY 05/05/18 [History] Potassium Chloride 10 meq PO BID 05/05/18 [History] QUEtiapine Fumarate [Seroquel Xr] 1 - 2 tab PO BEDTIME 05/05/18 [History] hydroCHLOROthiazide [Hydrochlorothiazide] 50 mg PO DAILY 05/05/18 [History] metFORMIN HCl [Metformin HCl] 1,000 mg PO BID 05/05/18 [History] Albuterol Sulfate [Proair Respiclick] 2 puff IH Q6HR PRN 11/14/18 [History] Diclofenac Sodium [Voltaren 1%] 1 applic TP QID PRN 11/14/18 [History] Meloxicam [Mobic] 7.5 mg PO DAILY 11/14/18 [History] Ibuprofen [Motrin] 800 mg PO BIDM PRN 10 Days #20 tab 04/11/19 [Rx] predniSONE [Prednisone] 30 mg PO DAILY 4 Days #12 tablet 04/11/19 [Rx] predniSONE [Prednisone] 30 mg PO DAILY 5 Days #15 tablet 12/18/19 [Rx] Past Medical History HEENT History: Reports: None Other HEENT History: Patient states difficulty hearing at times- low tones are hard to hear Cardiovascular History: Reports: Heart Failure, High Cholesterol, Hypertension, SOB on Exertion Respiratory History: Reports: Bronchitis, Recurrent, Sleep Apnea, SOB Gastrointestinal History: Reports: None Genitourinary History: Reports: None Musculoskeletal History: Reports: None Neurological History: Reports: None Other Neuro History: occasional migraines Psychiatric History: Reports: Anxiety, Depression Endocrine/Metabolic History: Reports: Diabetes, Type II Hematologic History: Reports: None Immunologic History: Reports: None Oncologic (Cancer) History: Reports: None Dermatologic History: Reports: None - Infectious Disease History Infectious Disease History: Reports: Chicken Pox - Past Surgical History Musculoskeletal Surgical History: Reports: Other (See Below) Other Musculoskeletal Surgeries/Procedures:: surgery to knees & foot and shoulder Social & Family History - Family History Family Medical History: No Pertinent Family History - Caffeine Use Caffeine Use: Reports: Coffee, Soda, Tea - Living Situation & Occupation Living situation: Reports: Single Occupation: Employed ED ROS GENERAL - Review of Systems Review Of Systems: See Below ED EXAM, GENERAL - Physical Exam Exam: See Below #1 Interpretation EKG Interpretation Comments: EKG: As interpreted by ER physician: Annie: Nonspecific ST-T wave abnormalities Normal axis No evidence of ST elevation DC Sinus tachycardia with a heart rate of 110. #2 Interpretation EKG Interpretation Comments: EKG: As interpreted by ER physician: Annie: Nonspecific ST-T wave abnormalities Normal axis No evidence of ST elevation DC A. fib with RVR heart rate of 160 Departure - Departure Time of Disposition: 06:57 Disposition: DC/Tfer to Acute Hospital 02 Condition: Fair Clinical Impression: Atrial fibrillation with rapid ventricular response, 2019 novel coronavirus disease (COVID-19) - Discharge Information Referrals: PCP,None [Primary Care Provider] - Forms: ED Department Discharge Sepsis Event Note (ED) - Evaluation Sepsis Screening Result: No Definite Risk <J Carlos Ortega - Last Filed: 02/04/20 08:18> Course - Vital Signs Last Recorded V/S: Last Vital Signs Temp 97.1 F 02/04/20 06:35 Pulse 145 H 02/04/20 06:35 Resp 20 02/04/20 06:35 BP 114/76 02/04/20 06:35 Pulse Ox 95 02/04/20 06:35 - Orders/Labs/Meds Orders: Active Orders 24 hr Category Date Time Status EKG 12 Lead [EKG Documentation Completion] [RC] STAT Care 02/04/20 04:56 Active EKG 12 Lead [EKG Documentation Completion] [RC] STAT Care 02/04/20 06:00 Active RT Post Treatment Assessment [RC] Click to Edit Care 02/04/20 05:12 Active RT Pre-Treatment Assessment [RC] Click to Edit Care 02/04/20 05:12 Active Diltiazem [Cardizem] 100 mg Med 02/04/20 06:15 Active Sodium Chloride 0.9% [Normal Saline] 100 ml IV NOW LORazepam [Ativan] Med 02/04/20 06:47 Active 1 mg IVPUSH ONETIME PRN Sodium Chloride 0.9% [Saline Flush] Med 02/04/20 05:05 Active 10 ml FLUSH ASDIRECTED PRN Sodium Chloride 0.9% [Saline Flush] Med 02/04/20 05:05 Active 2.5 ml FLUSH ASDIRECTED PRN Saline Lock Insert [OM.PC] Stat Oth 02/04/20 05:05 Ordered Medication Orders Diltiazem HCl 100 mg/ Sodium (Chloride) 100 mls @ 5 mls/hr IV NOW JESSI; Protocol Last Titration: 02/04/20 06:51 Dose: 10 mg/hr, 10 mls/hr Documented by: Admin: 02/04/20 06:18 Dose: 5 mg/hr, 5 mls/hr Documented by: IRIS Lorazepam (Ativan) 1 mg IVPUSH ONETIME PRN PRN Reason: Anxiety Last Admin: 02/04/20 08:13 Dose: 1 mg Documented by: ARABRAVO Sodium Chloride (Saline Flush) 10 ml FLUSH ASDIRECTED PRN PRN Reason: Keep Vein Open Sodium Chloride (Saline Flush) 2.5 ml FLUSH ASDIRECTED PRN PRN Reason: Keep Vein Open Labs: Laboratory Tests 02/04/20 02/04/20 02/04/20 Range/Units 04:45 04:45 04:45 WBC 10.30 (4.0-11.0) K/uL RBC 4.96 (4.50-5.90) M/uL Hgb 15.3 (13.0-17.0) g/dL Hct 46.4 (38.0-50.0) % MCV 93.5 (80.0-98.0) fL MCH 30.8 (27.0-32.0) pg MCHC 33.0 (31.0-37.0) g/dL RDW Std Deviation 47.1 (28.0-62.0) fl RDW Coeff of Tita 14 (11.0-15.0) % Plt Count 220 (150-400) K/uL MPV 10.80 (7.40-12.00) fL Neut % (Auto) 66.7 (48.0-80.0) % Lymph % (Auto) 19.4 (16.0-40.0) % [place] % (Auto) 11.6 (0.0-15.0) % Eos % (Auto) 1.8 (0.0-7.0) % Baso % (Auto) 0.5 (0.0-1.5) % Neut # (Auto) 6.9 H (1.4-5.7) K/uL Lymph # (Auto) 2.0 (0.6-2.4) K/uL [place] # (Auto) 1.2 H (0.0-0.8) K/uL Eos # (Auto) 0.2 (0.0-0.7) K/uL Baso # (Auto) 0.1 (0.0-0.1) K/uL Nucleated RBC % 0.0 /100WBC Nucleated RBCs # 0 K/uL INR APTT (18.6-31.3) SEC D-Dimer, Quantitative (0.0-0.50) mg/L FEU Sodium 135 L (136-148) mmol/L Potassium 4.2 (3.5-5.1) mmol/L Chloride 99 (98-107) mmol/L Carbon Dioxide 28.7 (21.0-32.0) mmol/L BUN 34 H (7.0-18.0) mg/dL Creatinine 2.0 H (0.8-1.3) mg/dL Est Cr Clr Drug Dosing 42.71 mL/min Estimated GFR (MDRD) 35.1 ml/min Glucose 251 H (74-106) mg/dL Calcium 9.1 (8.5-10.1) mg/dL Total Bilirubin 0.4 (0.2-1.0) mg/dL AST 133 H (15-37) IU/L ALT 107 H (14-63) IU/L Alkaline Phosphatase 88 (46-116) U/L Troponin I < 0.050 (0.000-0.056) ng/mL B-Natriuretic Peptide 13 (<100) PG/ML Total Protein 7.8 (6.4-8.2) g/dL Albumin 3.6 (3.4-5.0) g/dL Globulin 4.2 H (2.6-4.0) g/dL Albumin/Globulin Ratio 0.9 (0.9-1.6) SARS-CoV-2 RNA (LIZETH) (NEGATIVE) 02/04/20 02/04/20 02/04/20 Range/Units 04:45 04:45 05:00 WBC (4.0-11.0) K/uL RBC (4.50-5.90) M/uL Hgb (13.0-17.0) g/dL Hct (38.0-50.0) % MCV (80.0-98.0) fL MCH (27.0-32.0) pg MCHC (31.0-37.0) g/dL RDW Std Deviation (28.0-62.0) fl RDW Coeff of Tita (11.0-15.0) % Plt Count (150-400) K/uL MPV (7.40-12.00) fL Neut % (Auto) (48.0-80.0) % Lymph % (Auto) (16.0-40.0) % [place] % (Auto) (0.0-15.0) % Eos % (Auto) (0.0-7.0) % Baso % (Auto) (0.0-1.5) % Neut # (Auto) (1.4-5.7) K/uL Lymph # (Auto) (0.6-2.4) K/uL [place] # (Auto) (0.0-0.8) K/uL Eos # (Auto) (0.0-0.7) K/uL Baso # (Auto) (0.0-0.1) K/uL Nucleated RBC % /100WBC Nucleated RBCs # K/uL INR 1.05 APTT 27.2 (18.6-31.3) SEC D-Dimer, Quantitative 1.95 H (0.0-0.50) mg/L FEU Sodium (136-148) mmol/L Potassium (3.5-5.1) mmol/L Chloride (98-107) mmol/L Carbon Dioxide (21.0-32.0) mmol/L BUN (7.0-18.0) mg/dL Creatinine (0.8-1.3) mg/dL Est Cr Clr Drug Dosing mL/min Estimated GFR (MDRD) ml/min Glucose (74-106) mg/dL Calcium (8.5-10.1) mg/dL Total Bilirubin (0.2-1.0) mg/dL AST (15-37) IU/L ALT (14-63) IU/L Alkaline Phosphatase (46-116) U/L Troponin I (0.000-0.056) ng/mL B-Natriuretic Peptide (<100) PG/ML Total Protein (6.4-8.2) g/dL Albumin (3.4-5.0) g/dL Globulin (2.6-4.0) g/dL Albumin/Globulin Ratio (0.9-1.6) SARS-CoV-2 RNA (LIZETH) POSITIVE H (NEGATIVE) Meds: Medications Generic Name Dose Route Start Last Admin Trade Name Freq PRN Reason Stop Dose Admin Diltiazem HCl 100 mg/ Sodium 100 mls @ 5 mls/hr 02/04/20 06:15 02/04/20 06:51 Chloride IV 10 mg/hr NOW JESSI 10 mls/hr Titration Protocol 5 MG/HR Lorazepam 1 mg 02/04/20 06:47 02/04/20 08:13 Ativan IVPUSH 1 mg ONETIME PRN Administration Anxiety Sodium Chloride 10 ml 02/04/20 05:05 Saline Flush FLUSH ASDIRECTED PRN Keep Vein Open Sodium Chloride 2.5 ml 02/04/20 05:05 Saline Flush FLUSH ASDIRECTED PRN Keep Vein Open Discontinued Medications Generic Name Dose Route Start Last Admin Trade Name Freq PRN Reason Stop Dose Admin Albuterol 2 gm 02/04/20 05:10 02/04/20 05:32 Ventolin Hfa INH 02/04/20 05:11 2 puff QID STA Administration Diltiazem HCl 10 mg 02/04/20 06:08 02/04/20 06:12 Diltiazem IVPUSH 02/04/20 06:09 10 mg ONETIME ONE Administration Diltiazem HCl 20 mg 02/04/20 07:25 02/04/20 07:43 Diltiazem IVPUSH 02/04/20 07:26 20 mg ONETIME ONE Administration Diltiazem HCl Confirm 02/04/20 07:35 02/04/20 07:53 Diltiazem Administered 02/04/20 07:36 Not Given Dose 25 mg .ROUTE .STK-MED ONE Sodium Chloride 1,000 mls @ 999 mls/hr 02/04/20 05:52 02/04/20 06:06 Normal Saline IV 02/04/20 06:52 125 mls/hr .Bolus ONE Infusion Lorazepam 1 mg 02/04/20 08:15 02/04/20 08:16 Ativan IVPUSH 02/04/20 08:16 Not Given ONETIME ONE - Re-Assessments/Exams Free Text/Narrative Re-Assessment/Exam: 02/04/20 08:18 Heart rate was still in the 150s while on dilt 10 mg/hr, gave a push of 20 mg of diltiazem and increase the rate to 15. Patient heart rate improved to the 120s. Patient was given 1 mg of Ativan as he is being transferred by ground. Sepsis Event Note (ED) - Focused Exam Vital Signs: Vital Signs Temp Pulse Resp BP Pulse Ox 02/04/20 06:35 97.1 F 145 H 20 114/76 95 02/04/20 06:24 95 02/04/20 06:05 145 H 20 114/58 L 93 L 02/04/20 04:45 96.5 F L 125 H 20 114/79 93 L
[2020-02-04 05:29] LABS: BLOOD UREA NITROGEN,BUN 34 mg/dL (7.0-18.0); CARBON DIOXIDE,CO2 28.7 mmol/L (21.0-32.0); CHLORIDE,CL 99 mmol/L (98-107); GLUCOSE RANDOM 251 mg/dL (74-106); POTASSIUM,K 4.2 mmol/L (3.5-5.1); SODIUM,NA 135 mmol/L (136-148)
[2020-02-04] MEDS ORDERED: Sodium Chloride 0.9% 1,000 ML IV ONE (05:52)
[2020-02-04] MEDS ORDERED: Diltiazem 25 MG/5 ML SDV IVPUSH ONE ×3 (06:08→07:40)
[2020-02-04] MEDS ORDERED: Diltiazem 100 MG in Sodium Chloride 0.9% 100 ML IV SCH (06:15)
--- NOTE | 2020-02-04 06:42 | CR ---
INDICATION: Shortness of breath TECHNIQUE: Portable upright AP view of the chest COMPARISON: PA and lateral chest radiographs 12/24/2017 FINDINGS: The lungs are clear. There is no sizable pleural effusion or pneumothorax. The cardiomediastinal silhouette is normal. The visualized osseous structures are unremarkable. IMPRESSION: No acute intrathoracic process. Dictated by Felipe Simpson MD @ Feb 04 2020 6:41AM Signed by Dr. Felipe Simpson @ Feb 04 2020 6:42AM
[2020-02-04] MEDS ORDERED: LORazepam 2 MG/ML SDV IVPUSH PRN (06:47)
[2020-02-04] MEDS ORDERED: Diltiazem 25 MG/5 ML SDV ONE (07:35)
[2020-02-04] MEDS ORDERED: LORazepam 2 MG/ML SDV IVPUSH ONE (08:15)
== END 2020-02-04 08:25 ==
LOC: MW.ED 04:32
DX: U07.1 COVID-19 (principal); I48.91 Unspecified atrial fibrillation; R00.0 Tachycardia, unspecified; I11.0 Hypertensive heart disease with heart failure; I50.9 Heart failure, unspecified; F41.9 Anxiety disorder, unspecified; F32.9 Major depressive disorder, single episode, unspecified; E11.9 Type 2 diabetes mellitus without complications; Z88.8 Allergy status to other drugs, medicaments and biological substances; Z79.899 Other long term (current) drug therapy; Z79.82 Long term (current) use of aspirin
CPT/HCPCS: 36415; 71045; 80053; 83880; 84484; 85025; 85379; 85610; 85730; 87635; 93005; 96365; 96366; 96375; 96376; 99285; J2060; J3490; J7030; J7050; 93010; 99291; J3535-GY; U0002

== ENCOUNTER 2020-08-05 07:47 | Observation (INO) | payer OTHER ==
[2020-08-05] MEDS ORDERED: Sodium Chloride 0.9% 2.5 ML Syringe FLUSH PRN (08:05)
[2020-08-05] MEDS ORDERED: Sodium Chloride 0.9% 10 ML Syringe FLUSH PRN (08:05)
[2020-08-05] MEDS ORDERED: Aspirin 81 MG Tab.Chew PO ONE (08:05)
--- NOTE | 2020-08-05 08:11 | EDM.PDOC ---
ED HPI GENERAL MEDICAL PROBLEM - General Chief Complaint: Chest Pain Stated Complaint: CHEST PAIN Time Seen by Provider: 08/05/20 08:00 - History of Present Illness INITIAL COMMENTS - FREE TEXT/NARRATIVE: HISTORY AND PHYSICAL: History of present illness: This is a 55-year-old gentleman with a history significant for hypertension, diabetes, CHF, atrial fibrillation, obstructive sleep apnea, negative cardiac catheterization approximately 8 years ago with no prior cardiac stents, who presents ER today complaining of midsternal chest pressure that started yesterday evening prior to going to sleep. Patient reports no exertional or rest component to the pain. Patient reports no change with meals. Patient does admit to shortness of breath with slight diaphoresis. Patient denies any nausea or radiating pain to his jaw back or arms. Patient denies any recent fevers, shakes, chills. Patient has any nausea, vomiting, diarrhea, dysuria, frequency, urgency, abdominal pain. Patient denies any hemoptysis. Patient has any melena or bright red blood per rectum. Review of systems: As per history of present illness and below otherwise all systems reviewed and negative. Past medical history: As per history of present illness and as reviewed below otherwise noncontributory. Surgical history: As per history of present illness and as reviewed below otherwise noncontributory. Social history: No reported history of drug abuse. Family history: As per history of present illness and as reviewed below otherwise noncontributory. Physical exam: This patient was seen and evaluated during the 2019 SARS-CoV-2 novel coronavirus pandemic period. Community viral transmission is ongoing at time of this encounter and the emergency department is operating under pandemic response procedures. Constitutional: Patient is oriented to person, place, and time. Appears well- developed and well-nourished, morbidly obese. No distress. HEENT: Moist mucous membranes Head: Normocephalic and atraumatic Eyes: Right eye exhibits no discharge. Left eye exhibits no discharge. No scleral icterus Neck: Normal range of motion. No tracheal deviation present. Cardiovascular: Normal rate and regular rhythm. No reproducible tenderness to palpation to his anterior chest wall. Pulmonary: Effort normal, no respiratory distress. Abdominal: No distention Musculoskeletal: Normal range of motion Neurologic: Alert and oriented to person, place and time. Skin: [place], warm and dry. Psychiatric: Normal mood and affect. Behavior is normal. Judgment and thought content normal. Nursing note and vital signs have been reviewed Diagnostics: CBC, CMP, chest x-ray, troponin, BNP, D-dimer, EKG EKG: As interpreted by ER physician: Annie: Nonspecific ST-T wave abnormalities Normal axis No evidence of ST elevation [place] Normal sinus rhythm heart rate of 76 Chest Xray: Normal cardiac silhouette No infiltrates or effusions identified. No PTX No evidence of acute bony fracture. As interpreted by ER MD: [employer]: Aspirin 324 mg p.o. Nitroglycerin sublingual every 5 minutes as needed chest pain Assessment and plan: This is a 55-year-old gentleman with multiple cardiac risk factors who presents ER today complaining of midsternal chest discomfort times last night. Patient has a history of hypertension, diabetes, obstructive sleep apnea, atrial fibrillation in past. Patient reports he had a negative cardiac catheterization approximately 8 years ago. Patient does have associated shortness of breath and diaphoresis with the discomfort that exam. Patient reports the pain currently is approximately 6 out of 10 and at its greatest with an 8 out of 10. Patient was given 3 sublingual nitro for his chest pain with significant improvement in the discomfort that he was having. Patient's labs are all within normal limits including a normal troponin. Patient will be placed in observation for further cardiac testing. Case has been discussed with Dr. Fam who is agreed to assist this with observation level of care. Definitive disposition and diagnosis as appropriate pending reevaluation and review of above. chest Pain Score (Numeric/FACES): 7 - Related Data Allergies Allergy/AdvReac Type Severity Reaction Status Date / Time lisinopril Allergy Anaphylactic Verified 08/05/20 08:00 Shock Home Meds: Home Meds Acetaminophen 325 mg PO DAILY 05/05/18 [History] Aspirin 81 mg PO DAILY 05/05/18 [History] Citalopram Hydrobromide [Celexa] 40 mg PO DAILY 05/05/18 [History] Furosemide 30 mg PO BID 05/05/18 [History] Losartan [Cozaar] 100 mg PO DAILY 05/05/18 [History] Potassium Chloride 10 meq PO BID 05/05/18 [History] QUEtiapine Fumarate [Seroquel Xr] 1 - 2 tab PO BEDTIME 05/05/18 [History] hydroCHLOROthiazide [Hydrochlorothiazide] 50 mg PO DAILY 05/05/18 [History] metFORMIN HCl [Metformin HCl] 1,000 mg PO BID 05/05/18 [History] Albuterol Sulfate [Proair Respiclick] 2 puff IH Q6HR PRN 11/14/18 [History] Diclofenac Sodium [Voltaren 1%] 1 applic TP QID PRN 11/14/18 [History] Meloxicam [Mobic] 7.5 mg PO DAILY 11/14/18 [History] Ibuprofen [Motrin] 800 mg PO BIDM PRN 10 Days #20 tab 04/11/19 [Rx] predniSONE [Prednisone] 30 mg PO DAILY 4 Days #12 tablet 04/11/19 [Rx] predniSONE [Prednisone] 30 mg PO DAILY 5 Days #15 tablet 12/18/19 [Rx] Past Medical History HEENT History: Reports: None Other HEENT History: Patient states difficulty hearing at times- low tones are hard to hear Cardiovascular History: Reports: Heart Failure, High Cholesterol, Hypertension, SOB on Exertion Respiratory History: Reports: Bronchitis, Recurrent, Sleep Apnea, SOB Gastrointestinal History: Reports: None Genitourinary History: Reports: None Musculoskeletal History: Reports: None Neurological History: Reports: None Other Neuro History: occasional migraines Psychiatric History: Reports: Anxiety, Depression Endocrine/Metabolic History: Reports: Diabetes, Type II Insulin Pump Model and Job Recruiter: None Hematologic History: Reports: None Immunologic History: Reports: None Oncologic (Cancer) History: Reports: None Dermatologic History: Reports: None - Infectious Disease History Infectious Disease History: Reports: Chicken Pox, Novel Coronavirus - Past Surgical History HEENT Surgical History: Reports: None Cardiovascular Surgical History: Reports: Other (See Below) Other Cardiovascular Surgeries/Procedures: Angiogram Respiratory Surgical History: Reports: None GI Surgical History: Reports: None Male Surgical History: Reports: None Endocrine Surgical History: Reports: None Neurological Surgical History: Reports: None Musculoskeletal Surgical History: Reports: Other (See Below) Other Musculoskeletal Surgeries/Procedures:: surgery to knees & foot and shoulder Dermatological Surgical History: Reports: None Social & Family History - Family History Family Medical History: No Pertinent Family History - Tobacco Use Tobacco Use Status *Q: Never Tobacco User - Caffeine Use Caffeine Use: Reports: Soda - Recreational Drug Use Recreational Drug Use: No - Living Situation & Occupation Living situation: Reports: Single Occupation: Employed ED ROS GENERAL - Review of Systems Review Of Systems: See Below ED EXAM, GENERAL - Physical Exam Exam: See Below #1 Interpretation EKG Interpretation Comments: EKG: As interpreted by ER physician: Annie: Nonspecific ST-T wave abnormalities Normal axis No evidence of ST elevation [place] Normal sinus rhythm heart rate of 76 Course - Vital Signs Last Recorded V/S: Last Vital Signs Temp 97.3 F 08/05/20 08:36 Pulse 100 08/05/20 08:36 Resp BP 105/56 L 08/05/20 08:36 Pulse Ox 91 L 08/05/20 08:36 - Orders/Labs/Meds Orders: Active Orders 24 hr Category Date Time Status Patient Status [ADT] Routine ADT 08/05/20 08:51 Ordered Cardiac Monitoring [RC] . DIRECTED Care 08/05/20 08:05 Active EKG Documentation Completion [RC] AM Care 08/05/20 08:05 Active Pulse Oximetry [RC] ASDIRECTED Care 08/05/20 08:05 Active Chest 1V Frontal [CR] Stat Exams 08/05/20 08:06 Taken B-TYPE NATRIURETIC PEPTIDE,BNP [CHEM] Stat Lab 08/05/20 07:55 Received CORONAVIRUS COVID-19 LIZETH [MOLEC] Stat Lab 08/05/20 08:14 Received D-DIMER QUANTITATIVE [COAG] Stat Lab 08/05/20 07:55 Received Sodium Chloride 0.9% [Saline Flush] Med 08/05/20 08:05 Active 10 ml FLUSH ASDIRECTED PRN Sodium Chloride 0.9% [Saline Flush] Med 08/05/20 08:05 Active 2.5 ml FLUSH ASDIRECTED PRN Saline Lock Insert [OM.PC] Stat Oth 08/05/20 08:05 Ordered Medication Orders Sodium Chloride (Sodium Chloride 0.9% 10 Ml Syringe) 10 ml FLUSH ASDIRECTED PRN PRN Reason: Keep Vein Open Last Admin: 08/05/20 08:15 Dose: 10 ml Documented by: EL Sodium Chloride (Sodium Chloride 0.9% 2.5 Ml Syringe) 2.5 ml FLUSH ASDIRECTED PRN PRN Reason: Keep Vein Open Last Admin: 08/05/20 08:15 Dose: 2.5 ml Documented by: EL Labs: Laboratory Tests 08/05/20 08/05/20 Range/Units 07:55 07:55 WBC 9.25 (4.0-11.0) K/uL RBC 5.07 (4.50-5.90) M/uL Hgb 15.6 (13.0-17.0) g/dL Hct 46.9 (38.0-50.0) % MCV 92.5 (80.0-98.0) fL MCH 30.8 (27.0-32.0) pg MCHC 33.3 (31.0-37.0) g/dL RDW Std Deviation 47.3 (28.0-62.0) fl RDW Coeff of [place] 14 (11.0-15.0) % Plt Count 254 (150-400) K/uL MPV 10.10 (7.40-12.00) fL Neut % (Auto) 57.8 (48.0-80.0) % Lymph % (Auto) 28.2 (16.0-40.0) % [place] % (Auto) 8.3 (0.0-15.0) % Eos % (Auto) 4.8 (0.0-7.0) % Baso % (Auto) 0.9 (0.0-1.5) % Neut # (Auto) 5.4 (1.4-5.7) K/uL Lymph # (Auto) 2.6 H (0.6-2.4) K/uL [place] # (Auto) 0.8 (0.0-0.8) K/uL Eos # (Auto) 0.4 (0.0-0.7) K/uL Baso # (Auto) 0.1 (0.0-0.1) K/uL Nucleated RBC % 0.0 /100WBC Nucleated RBCs # 0 K/uL Sodium 141 (136-148) mmol/L Potassium 4.4 (3.5-5.1) mmol/L Chloride 107 (98-107) mmol/L Carbon Dioxide 24.0 (21.0-32.0) mmol/L BUN 16 (7.0-18.0) mg/dL Creatinine 1.4 H (0.8-1.3) mg/dL Est Cr Clr Drug Dosing 60.32 mL/min Estimated GFR (MDRD) 52.8 ml/min Glucose 174 H (74-106) mg/dL Calcium 8.9 (8.5-10.1) mg/dL Total Bilirubin 0.3 (0.2-1.0) mg/dL AST 46 H (15-37) IU/L ALT 56 (14-63) IU/L Alkaline Phosphatase 78 (46-116) U/L Troponin I < 0.050 (0.000-0.056) ng/mL Total Protein 7.2 (6.4-8.2) g/dL Albumin 3.4 (3.4-5.0) g/dL Globulin 3.8 (2.6-4.0) g/dL Albumin/Globulin Ratio 0.9 (0.9-1.6) Meds: Medications Generic Name Dose Route Start Last Admin Trade Name Freq PRN Reason Stop Dose Admin Sodium Chloride 10 ml 08/05/20 08:05 08/05/20 08:15 Sodium Chloride 0.9% 10 Ml Syringe FLUSH 10 ml ASDIRECTED PRN Administration Keep Vein Open Sodium Chloride 2.5 ml 08/05/20 08:05 08/05/20 08:15 Sodium Chloride 0.9% 2.5 Ml Syringe FLUSH 2.5 ml ASDIRECTED PRN Administration Keep Vein Open Discontinued Medications Generic Name Dose Route Start Last Admin Trade Name Freq PRN Reason Stop Dose Admin Aspirin 324 mg 08/05/20 08:05 08/05/20 08:13 Aspirin 81 Mg Tab.Chew PO 08/05/20 08:06 324 mg ONETIME ONE Administration Nitroglycerin 0.4 mg 08/05/20 08:05 08/05/20 08:31 Nitroglycerin 0.4 Mg Tab.Sl SL 0.4 mg Q5M PRN Administration Chest Pain Departure - Departure Time of Disposition: 08:53 Disposition: Refer to Observation Condition: Good Clinical Impression: Acute coronary syndrome, Chest pain, rule out acute myocardial infarction, Morbid obesity with BMI of 50.0-59.9, adult DM type 2 (diabetes mellitus, type 2) Qualifiers: Diabetes mellitus terminologist insulin use: without intermediate use Diabetes mellitus complication status: without complication Qualified Code(s): E11.9 - Type 2 diabetes mellitus without complications CHF (congestive heart failure) Qualifiers: Heart failure type: diastolic Heart failure chronicity: acute on chronic Qualified Code(s): I50.33 - Acute on chronic diastolic (congestive) heart failure Hypertension Qualifiers: Hypertension type: essential hypertension Qualified Code(s): I10 - Essential (primary) hypertension - Discharge Information Forms: ED Department Discharge Sepsis Event Note (ED) - Evaluation Sepsis Screening Result: No Definite Risk - Focused Exam Vital Signs: Vital Signs Temp Pulse BP BP Pulse Ox 08/05/20 08:36 97.3 F 100 105/56 L 91 L 08/05/20 08:31 91 110/57 L 92 L 08/05/20 08:26 90 115/52 L 91 L 08/05/20 08:21 77 136/82 93 L 08/05/20 07:57 96.7 F L 77 151/89 H 96 - My Orders Last 24 Hours: My Active Orders 08/05/20 07:55 B-TYPE NATRIURETIC PEPTIDE,BNP [CHEM] Stat D-DIMER QUANTITATIVE [COAG] Stat 08/05/20 08:05 Cardiac Monitoring [RC] . DIRECTED EKG Documentation Completion [RC] AM Pulse Oximetry [RC] ASDIRECTED Sodium Chloride 0.9% [Saline Flush] 10 ml FLUSH ASDIRECTED PRN Sodium Chloride 0.9% [Saline Flush] 2.5 ml FLUSH ASDIRECTED PRN Saline Lock Insert [OM.PC] Stat 08/05/20 08:06 Chest 1V Frontal [CR] Stat 08/05/20 08:14 CORONAVIRUS COVID-19 LIZETH [MOLEC] Stat 08/05/20 08:51 Patient Status [ADT] Routine - Assessment/Plan Last 24 Hours: My Active Orders 08/05/20 07:55 B-TYPE NATRIURETIC PEPTIDE,BNP [CHEM] Stat D-DIMER QUANTITATIVE [COAG] Stat 08/05/20 08:05 Cardiac Monitoring [RC] . DIRECTED EKG Documentation Completion [RC] AM Pulse Oximetry [RC] ASDIRECTED Sodium Chloride 0.9% [Saline Flush] 10 ml FLUSH ASDIRECTED PRN Sodium Chloride 0.9% [Saline Flush] 2.5 ml FLUSH ASDIRECTED PRN Saline Lock Insert [OM.PC] Stat 08/05/20 08:06 Chest 1V Frontal [CR] Stat 08/05/20 08:14 CORONAVIRUS COVID-19 LIZETH [MOLEC] Stat 08/05/20 08:51 Patient Status [ADT] Routine
[2020-08-05] MEDS: Nitroglycerin 0.4 MG Tab.SL SL PRN ×3 (08:21→08:31)
[2020-08-05 08:32] LABS: BLOOD UREA NITROGEN,BUN 16 mg/dL (7.0-18.0); CHLORIDE,CL 107 mmol/L (98-107); GLUCOSE RANDOM 174 mg/dL (74-106); POTASSIUM,K 4.4 mmol/L (3.5-5.1); SODIUM,NA 141 mmol/L (136-148)
--- NOTE | 2020-08-05 09:01 | CR ---
For Patients: As a result of the Cures Act, medical imaging exams and procedure reports are released immediately into your electronic medical record. You may view this report before your referring provider. If you have questions, please contact your health care provider. INDICATION: Chest pain. COMPARISON: Chest x-ray dated 04 February 2020. FINDINGS: A single portable chest x-ray shows a normal cardiac silhouette. The lungs show no focal pulmonary opacities. Sharp pleural margins. No pneumothorax. IMPRESSION: No evidence of acute pulmonary abnormalities. Dictated by Rene Castillo MD @ 08/05/2020 8:59:[address] Rene Castillo @ Aug 05 2020 8:59AM
[2020-08-05] MEDS ORDERED: Iopamidol 755 MG/ML 500 ML Multipack Bottle IVPUSH ONE (09:50)
--- NOTE | 2020-08-05 10:23 | CT ---
For Patients: As a result of the Century Cures Act, medical imaging exams and procedure reports are released immediately into your electronic medical record. You may view this report before your referring provider. If you have questions, please contact your health care provider. INDICATION: Chest pain and elevated D-dimer. Rule out pulmonary embolism. TECHNIQUE: Volumetric helical scanning of the thorax was performed during infusion of 100 cc of Isovue 370 contrast material IV, timing optimized for pulmonary arterial opacification. Coronal and sagittal reconstructions were obtained. COMPARISON: Chest CT of 01/05/2017. FINDINGS: The images are of acceptable quality and demonstrate uniform vascular enhancement within the pulmonary arteries. No pulmonary arterial filling defect is identified. The heart size is normal. The lungs are clear. No airway abnormality or pleural effusion is apparent. No mediastinal or hilar lymphadenopathy is evident. Images of the upper abdomen are unremarkable except for fatty change in the liver. IMPRESSION: 1. Negative chest CT. No evidence of pulmonary embolism or pneumonia. 2. Fatty liver. Please note that all CT scans at this facility use dose modulation, iterative reconstruction, and/or weight-based dosing when appropriate to reduce radiation dose to as low as reasonably achievable. Dictated by Edward Crystal MD @ 08/05/2020 10:22:[address] Edward Crystal @ Aug 05 2020 10:22AM
[2020-08-05] MEDS: Acetaminophen 325 MG Tab PO PRN ×2 (15:58→21:26)
[2020-08-05] MEDS ORDERED: 50% Dextrose in Water 50 ML Syringe IVPUSH PRN (16:08)
[2020-08-05] MEDS ORDERED: Glucagon,Human Recombinant 1 MG Vial IM PRN (16:08)
--- NOTE | 2020-08-05 16:14 | PCM.HP.2 ---
H&P History of Present Illness - General Date of Service: 08/05/20 Admit Problem/Dx: Admission Diagnosis/Problem Admission Diagnosis/Problem Acute coronary syndrome - History of Present Illness Initial Comments - Free Text/Narative: 55 yo male with pmh of atrial fibrilation, CHF, and DM who presents to the ED with complaint of chest pain. PAtient reports intermittent substernal chest pressure that last for minutes at a time. He has associated symptoms of shortness of breath. The pain has been on and off for the past week. He denies any fevers or cough. chest Pain Score (Numeric/FACES): 4 - Related Data Allergies/Adverse Reactions: Allergies Allergy/AdvReac Type Severity Reaction Status Date / Time lisinopril Allergy Anaphylactic Verified 08/05/20 14:02 Shock Home Medications: Home Meds Acetaminophen 325 mg PO DAILY 05/05/18 [History] Aspirin 81 mg PO DAILY 05/05/18 [History] Citalopram Hydrobromide [Celexa] 40 mg PO DAILY 05/05/18 [History] Furosemide 40 mg PO BID 05/05/18 [History] Potassium Chloride 10 meq PO BID 05/05/18 [History] QUEtiapine Fumarate [Seroquel Xr] 1 - 2 tab PO BEDTIME PRN 05/05/18 [History] Albuterol Sulfate [Proair Respiclick] 2 puff IH Q6HR PRN 11/14/18 [History] Diclofenac Sodium [Voltaren 1% Gel] 4 gm TP QID PRN 11/14/18 [History] Ibuprofen [Motrin] 800 mg PO BIDM PRN 10 Days #20 tab 04/11/19 [Rx] Allopurinol [Zyloprim] 300 mg PO DAILY 08/05/20 [History] Apixaban [Eliquis] 5 mg PO BID 08/05/20 [History] Cholecalciferol (Vitamin D3) [Vitamin D3] 75 mcg PO DAILY 08/05/20 [History] Colchicine 0.6 mg PO ASDIRECTED PRN 08/05/20 [History] Famotidine 20 mg PO BID 08/05/20 [History] Rosuvastatin [Crestor] 10 mg PO BEDTIME 08/05/20 [History] busPIRone [Buspar] 15 mg PO BID 08/05/20 [History] dilTIAZem HCL [Diltiazem 24Hr ER] 240 mg PO BEDTIME 08/05/20 [History] Past Medical History HEENT History: Reports: None Other HEENT History: Patient states difficulty hearing at times- low tones are hard to hear Cardiovascular History: Reports: Heart Failure, High Cholesterol, Hypertension, SOB on Exertion Respiratory History: Reports: Bronchitis, Recurrent, Sleep Apnea, SOB Gastrointestinal History: Reports: None Genitourinary History: Reports: None Musculoskeletal History: Reports: None Neurological History: Reports: None Other Neuro History: occasional migraines Psychiatric History: Reports: Anxiety, Depression Endocrine/Metabolic History: Reports: Diabetes, Type II 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 Hematologic History: Reports: None Immunologic History: Reports: None Oncologic (Cancer) History: Reports: None Dermatologic History: Reports: None - Infectious Disease History Infectious Disease History: Reports: Chicken Pox, Novel Coronavirus - Past Surgical History HEENT Surgical History: Reports: None Cardiovascular Surgical History: Reports: Other (See Below) Other Cardiovascular Surgeries/Procedures: Angiogram Respiratory Surgical History: Reports: None GI Surgical History: Reports: None Male Surgical History: Reports: None Endocrine Surgical History: Reports: None Neurological Surgical History: Reports: None Musculoskeletal Surgical History: Reports: Other (See Below) Other Musculoskeletal Surgeries/Procedures:: surgery to knees & foot and shoulder, forearm Dermatological Surgical History: Reports: None Social & Family History - Family History Family Medical History: No Pertinent Family History - Tobacco Use Tobacco Use Status *Q: Former Tobacco User Used Tobacco, but Quit: Yes Month/Year Tobacco Last Used: 20 years ago Second Hand Smoke Exposure: No - Caffeine Use Caffeine Use: Reports: Coffee, Soda - Recreational Drug Use Recreational Drug Use: No - Living Situation & Occupation Living situation: Reports: Single Occupation: Employed H&P Review of Systems - Review of Systems: Review Of Systems: Comprehensive ROS is negative, except as noted in HPI. Exam - Exam Exam: See Below - Vital Signs Vital Signs: Last Vital Signs Temp 36.6 C 08/05/20 11:00 Pulse 75 08/05/20 11:00 Resp 16 08/05/20 11:00 BP 133/88 08/05/20 11:00 Pulse Ox 94 L 08/05/20 11:00 Weight: 152.861 kg - Exam General: Alert, Oriented HEENT: Mucosa Moist & [place] Neck: Supple Lungs: Clear to Auscultation, Normal Respiratory Effort Cardiovascular: Regular Rate, Regular Rhythm GI/Abdominal Exam: Normal Bowel Sounds, Soft, Non-Tender Extremities: Non-Tender, No Pedal Edema Skin: Warm, Dry, Intact Neurological: Cranial Nerves Intact - Patient Data Lab Results Last 24 hrs: Laboratory Results - last 24 hr 08/05/20 08/05/20 08/05/20 Range/Units 07:55 07:55 07:55 WBC 9.25 (4.0-11.0) K/uL RBC 5.07 (4.50-5.90) M/uL Hgb 15.6 (13.0-17.0) g/dL Hct 46.9 (38.0-50.0) % MCV 92.5 (80.0-98.0) fL MCH 30.8 (27.0-32.0) pg MCHC 33.3 (31.0-37.0) g/dL RDW Std Deviation 47.3 (28.0-62.0) fl RDW Coeff of Tita 14 (11.0-15.0) % Plt Count 254 (150-400) K/uL MPV 10.10 (7.40-12.00) fL Neut % (Auto) 57.8 (48.0-80.0) % Lymph % (Auto) 28.2 (16.0-40.0) % Churchill % (Auto) 8.3 (0.0-15.0) % Eos % (Auto) 4.8 (0.0-7.0) % Baso % (Auto) 0.9 (0.0-1.5) % Neut # (Auto) 5.4 (1.4-5.7) K/uL Lymph # (Auto) 2.6 H (0.6-2.4) K/uL Churchill # (Auto) 0.8 (0.0-0.8) K/uL Eos # (Auto) 0.4 (0.0-0.7) K/uL Baso # (Auto) 0.1 (0.0-0.1) K/uL Nucleated RBC % 0.0 /100WBC Nucleated RBCs # 0 K/uL D-Dimer, Quantitative 0.71 H (0.0-0.50) mg/L FEU Sodium 141 (136-148) mmol/L Potassium 4.4 (3.5-5.1) mmol/L Chloride 107 (98-107) mmol/L Carbon Dioxide 24.0 (21.0-32.0) mmol/L BUN 16 (7.0-18.0) mg/dL Creatinine 1.4 H (0.8-1.3) mg/dL Est Cr Clr Drug Dosing 60.32 mL/min Estimated GFR (MDRD) 52.8 ml/min Glucose 174 H (74-106) mg/dL Calcium 8.9 (8.5-10.1) mg/dL Total Bilirubin 0.3 (0.2-1.0) mg/dL AST 46 H (15-37) IU/L ALT 56 (14-63) IU/L Alkaline Phosphatase 78 (46-116) U/L Troponin I < 0.050 (0.000-0.056) ng/mL B-Natriuretic Peptide (<100) PG/ML Total Protein 7.2 (6.4-8.2) g/dL Albumin 3.4 (3.4-5.0) g/dL Globulin 3.8 (2.6-4.0) g/dL Albumin/Globulin Ratio 0.9 (0.9-1.6) SARS-CoV-2 RNA (LIZETH) (NEGATIVE) 08/05/20 08/05/20 08/05/20 Range/Units 07:55 08:14 14:00 WBC (4.0-11.0) K/uL RBC (4.50-5.90) M/uL Hgb (13.0-17.0) g/dL Hct (38.0-50.0) % MCV (80.0-98.0) fL MCH (27.0-32.0) pg MCHC (31.0-37.0) g/dL RDW Std Deviation (28.0-62.0) fl RDW Coeff of Tita (11.0-15.0) % Plt Count (150-400) K/uL MPV (7.40-12.00) fL Neut % (Auto) (48.0-80.0) % Lymph % (Auto) (16.0-40.0) % Churchill % (Auto) (0.0-15.0) % Eos % (Auto) (0.0-7.0) % Baso % (Auto) (0.0-1.5) % Neut # (Auto) (1.4-5.7) K/uL Lymph # (Auto) (0.6-2.4) K/uL Churchill # (Auto) (0.0-0.8) K/uL Eos # (Auto) (0.0-0.7) K/uL Baso # (Auto) (0.0-0.1) K/uL Nucleated RBC % /100WBC Nucleated RBCs # K/uL D-Dimer, Quantitative (0.0-0.50) mg/L FEU Sodium (136-148) mmol/L Potassium (3.5-5.1) mmol/L Chloride (98-107) mmol/L Carbon Dioxide (21.0-32.0) mmol/L BUN (7.0-18.0) mg/dL Creatinine (0.8-1.3) mg/dL Est Cr Clr Drug Dosing mL/min Estimated GFR (MDRD) ml/min Glucose (74-106) mg/dL Calcium (8.5-10.1) mg/dL Total Bilirubin (0.2-1.0) mg/dL AST (15-37) IU/L ALT (14-63) IU/L Alkaline Phosphatase (46-116) U/L Troponin I < 0.050 (0.000-0.056) ng/mL B-Natriuretic Peptide 28 (<100) PG/ML Total Protein (6.4-8.2) g/dL Albumin (3.4-5.0) g/dL Globulin (2.6-4.0) g/dL Albumin/Globulin Ratio (0.9-1.6) SARS-CoV-2 RNA (LIZETH) NEGATIVE (NEGATIVE) Result Diagrams: 08/05/20 07:55 08/05/20 07:55 Sepsis Event Note - Evaluation Sepsis Screening Result: No Definite Risk - Focused Exam Vital Signs: Vital Signs Temp Pulse Resp BP BP Pulse Ox 08/05/20 11:00 36.6 C 75 16 133/88 94 L 08/05/20 10:38 85 144/105 H 94 L 08/05/20 09:15 87 94 L 08/05/20 08:54 83 111/67 92 L 08/05/20 08:36 36.3 C 100 105/56 L 91 L 08/05/20 08:31 91 110/57 L 92 L 08/05/20 08:26 90 115/52 L 91 L 08/05/20 08:21 77 136/82 93 L 08/05/20 07:57 35.9 C L 77 151/89 H 96 Problem List Initiated/Reviewed/Updated: Yes Orders Last 24hrs: Active Orders 24 hr Category Date Time Status Patient Status [ADT] Routine ADT 08/05/20 08:51 Active Antiembolic Devices [RC] PER UNIT ROUTINE Care 08/05/20 16:06 Ordered Cardiac Monitoring [RC] . DIRECTED Care 08/05/20 08:05 Active Oxygen Therapy [RC] PRN Care 08/05/20 16:05 Ordered Pulse Oximetry [RC] ASDIRECTED Care 08/05/20 08:05 Active Up ad Reena [RC] ASDIRECTED Care 08/05/20 16:05 Ordered VTE/DVT Education [RC] PER UNIT ROUTINE Care 08/05/20 16:05 Ordered Vital Signs [RC] Q4H Care 08/05/20 16:05 Ordered Regular Diet [DIET] Diet 08/05/20 Breakfast Active TROPONIN I [CHEM] Q6H Lab 08/05/20 20:00 Ordered Acetaminophen [TylenoL] Med 08/05/20 15:30 Active 325 mg PO Q4H PRN Albuterol Sulfate [Proair Respiclick] Med 08/05/20 16:03 Ordered 2 puff IH Q6HR PRN Aspirin Med 08/06/20 09:00 Ordered 81 mg PO DAILY Citalopram Hydrobromide [Celexa] Med 08/06/20 09:00 Ordered 40 mg PO DAILY Furosemide [Lasix] Med 08/05/20 21:00 Ordered 40 mg PO BID Rosuvastatin [Crestor] Med 08/05/20 21:00 Ordered 10 mg PO BEDTIME Sodium Chloride 0.9% [Saline Flush] Med 08/05/20 08:05 Active 10 ml FLUSH ASDIRECTED PRN Sodium Chloride 0.9% [Saline Flush] Med 08/05/20 08:05 Active 2.5 ml FLUSH ASDIRECTED PRN busPIRone Med 08/05/20 21:00 Ordered 15 mg PO BID dilTIAZem HCL [Diltiazem 24Hr ER] Med 08/05/20 21:00 Ordered 240 mg PO BEDTIME Saline Lock Insert [OM.PC] Stat Oth 08/05/20 08:05 Ordered Sequential Compression Device [OM.PC] Per Unit Routine Oth 08/05/20 16:06 Ordered Resuscitation Status Routine Resus Stat 08/05/20 16:05 Ordered Medication Orders Acetaminophen (Acetaminophen 325 Mg Tab) 325 mg PO Q4H PRN PRN Reason: Pain Last Admin: 08/05/20 15:58 Dose: 325 mg Documented by: OPAL Aspirin (Aspirin 81 Mg Tab.Chew) 81 mg PO DAILY JESSI Furosemide (Furosemide 20 Mg Tab) 40 mg PO BID JESSI Non-Formulary Medication (Albuterol Sulfate [Proair Respiclick]) 2 puff IH Q6HR PRN PRN Reason: Shortness of Breath Non-Formulary Medication (Buspirone) 15 mg PO BID JESSI Non-Formulary Medication (Citalopram Hydrobromide [Celexa]) 40 mg PO DAILY JESSI Non-Formulary Medication (Diltiazem Hcl [Diltiazem 24hr Er]) 240 mg PO BEDTIME JESSI Rosuvastatin Calcium (Rosuvastatin 10 Mg Tab) 10 mg PO BEDTIME JESSI Sodium Chloride (Sodium Chloride 0.9% 10 Ml Syringe) 10 ml FLUSH ASDIRECTED PRN PRN Reason: Keep Vein Open Last Admin: 08/05/20 08:15 Dose: 10 ml Documented by: EL Sodium Chloride (Sodium Chloride 0.9% 2.5 Ml Syringe) 2.5 ml FLUSH ASDIRECTED PRN PRN Reason: Keep Vein Open Last Admin: 08/05/20 08:15 Dose: 2.5 ml Documented by: EL Assessment/Plan Comment:: 55 yo male admitted for chest pain
[2020-08-05 16:26] LABS: HEMOGLOBIN A1C 7.6 %
[2020-08-05] MEDS ORDERED: Morphine 2 MG/ML SYRINGE IVPUSH PRN (17:00)
[2020-08-05] MEDS: Insulin Aspart 100 Units/ML 3 ML Pen SUBCUT SCH (17:12)
[2020-08-05] MEDS ORDERED: Albuterol 8 GM Inhaler INH PRN (18:00)
[2020-08-05] MEDS: Furosemide 20 MG Tab PO SCH (20:17)
[2020-08-05] MEDS: busPIRone 5 MG Tab PO SCH (20:18)
[2020-08-05] MEDS ORDERED: Rosuvastatin 10 MG Tab PO SCH (21:00)
[2020-08-05] MEDS ORDERED: Diltiazem 120 MG Cap.CD PO SCH (21:00)
[2020-08-05] MEDS: Ibuprofen 400 MG Tab PO PRN (21:25)
[2020-08-06] MEDS: Acetaminophen 325 MG Tab PO PRN (04:01)
[2020-08-06] MEDS: Ibuprofen 400 MG Tab PO PRN (04:02)
[2020-08-06] MEDS: Insulin Aspart 100 Units/ML 3 ML Pen SUBCUT SCH (07:49)
[2020-08-06] MEDS ORDERED: Aspirin 81 MG Tab.Chew PO SCH (09:00)
[2020-08-06] MEDS ORDERED: Citalopram 20 MG Tab PO SCH (09:00)
[2020-08-06] MEDS: Furosemide 20 MG Tab PO SCH (09:06)
[2020-08-06] MEDS: busPIRone 5 MG Tab PO SCH (09:06)
--- NOTE | 2020-08-06 10:33 | PCM.DCSUM1 ---
Discharge Summary - Discharge Data Discharge Date: 08/06/20 Discharge Disposition: Home, Self-Care 01 Condition: Good - Referral to Home Health Primary Care Physician: PCP None - Patient Summary/Data Hospital Course: 55 yo male with pmh of atrial fibrillation, CHF, and DM who presents to the ED with complaint of chest pain. CT chest was negative for PE. Laboratory work was unremarkable. Patient was monitored overnight with no events on telemetry. He ruled out for acute coronary syndrome with serial negative cardiac enzymes. Chest pain had resolved and patient is requesting discharge. Patient was discharged home to follow up with the [facility]. - Patient Instructions Diet: Heart Healthy Diet, Diabetic Diet Activity: As Tolerated, No Strenuous Activities Notify Provider of: Fever, Increased Pain, Nausea and/or Vomiting - Discharge Plan Home Medications: Home Meds Acetaminophen 325 mg PO DAILY 05/05/18 [History] Aspirin 81 mg PO DAILY 05/05/18 [History] Citalopram Hydrobromide [Celexa] 40 mg PO DAILY 05/05/18 [History] Furosemide 40 mg PO BID 05/05/18 [History] Potassium Chloride 10 meq PO BID 05/05/18 [History] QUEtiapine Fumarate [Seroquel Xr] 1 - 2 tab PO BEDTIME PRN 05/05/18 [History] Albuterol Sulfate [Proair Respiclick] 2 puff IH Q6HR PRN 11/14/18 [History] Diclofenac Sodium [Voltaren 1% Gel] 4 gm TP QID PRN 11/14/18 [History] Ibuprofen [Motrin] 800 mg PO BIDM PRN 10 Days #20 tab 04/11/19 [Rx] Allopurinol [Zyloprim] 300 mg PO DAILY 08/05/20 [History] Apixaban [Eliquis] 5 mg PO BID 08/05/20 [History] Cholecalciferol (Vitamin D3) [Vitamin D3] 75 mcg PO DAILY 08/05/20 [History] Colchicine 0.6 mg PO ASDIRECTED PRN 08/05/20 [History] Famotidine 20 mg PO BID 08/05/20 [History] Rosuvastatin [Crestor] 10 mg PO BEDTIME 08/05/20 [History] busPIRone [Buspar] 15 mg PO BID 08/05/20 [History] dilTIAZem HCL [Diltiazem 24Hr ER] 240 mg PO BEDTIME 08/05/20 [History] Patient Handouts: Nonspecific Chest Pain, Adult, [id number] - Discharge Summary/Plan Comment DC Time >30 min.: No - Patient Data Vitals - Most Recent: Last Vital Signs Temp 36.5 C 08/06/20 07:41 Pulse 75 08/06/20 07:41 Resp 18 08/06/20 07:41 BP 123/78 08/06/20 08:46 Pulse Ox 94 L 08/06/20 07:41 Weight - Most Recent: 152.861 kg I&O - Last 24 hours: Intake & Output 08/05/20 08/06/20 08/06/20 22:59 06:59 14:59 Intake Total 600 720 120 Output Total 500 1200 Balance 100 -480 120 Lab Results - Last 24 hrs: Laboratory Results - last 24 hr 08/05/20 08/05/20 08/05/20 Range/Units 14:00 14:00 16:32 POC Glucose 143 H (70-99) mg/dL Hemoglobin A1c 7.6 H (4.5 - 6.2) % Troponin I < 0.050 (0.000-0.056) ng/mL 08/05/20 08/06/20 Range/Units 20:01 06:36 POC Glucose 199 H (70-99) mg/dL Hemoglobin A1c (4.5 - 6.2) % Troponin I < 0.050 (0.000-0.056) ng/mL Med Orders - Current: Current Medications Acetaminophen (Acetaminophen 325 Mg Tab) 325 mg PO Q4H PRN PRN Reason: Pain Last Admin: 08/06/20 04:01 Dose: 325 mg Documented by: Albuterol (Albuterol 8 Gm Inhaler) 0 gm INH Q6HRRT PRN PRN Reason: Shortness of Breath Aspirin (Aspirin 81 Mg Tab.Chew) 81 mg PO DAILY [facility] Last Admin: 08/06/20 09:06 Dose: 81 mg Documented by: Buspirone HCl (Buspirone 5 Mg Tab) 15 mg PO BID [facility] Last Admin: 08/06/20 09:06 Dose: 15 mg Documented by: Citalopram Hydrobromide (Citalopram 20 Mg Tab) 40 mg PO DAILY [facility] Last Admin: 08/06/20 09:06 Dose: 40 mg Documented by: Dextrose/Water (50% Dextrose In Water 50 Ml Syringe) 50 ml IVPUSH ASDIRECTED PRN PRN Reason: Hypoglycemia Diltiazem HCl (Diltiazem 120 Mg Cap.Cd) 240 mg PO BEDTIME [facility] Last Admin: 08/05/20 20:17 Dose: 240 mg Documented by: Furosemide (Furosemide 20 Mg Tab) 40 mg PO BID [facility] Last Admin: 08/06/20 09:06 Dose: 40 mg Documented by: Glucagon (Glucagon,Human Recombinant 1 Mg Vial) 1 mg IM ASDIRECTED PRN PRN Reason: Hypoglycemia Ibuprofen (Ibuprofen 400 Mg Tab) 400 mg PO Q6H PRN PRN Reason: Pain Last Admin: 08/06/20 04:02 Dose: 400 mg Documented by: Insulin Aspart (Insulin Aspart 100 Units/Ml 3 Ml Pen) 0 unit SUBCUT TIDAC [facility]; Protocol Last Admin: 08/06/20 07:49 Dose: Not Given Documented by: Morphine Sulfate (Morphine 2 Mg/Ml Syringe) 2 mg IVPUSH Q4H PRN PRN Reason: Pain Last Admin: 08/05/20 17:13 Dose: 2 mg Documented by: Rosuvastatin Calcium (Rosuvastatin 10 Mg Tab) 10 mg PO BEDTIME [facility] Last Admin: 08/05/20 20:18 Dose: 10 mg Documented by: Sodium Chloride (Sodium Chloride 0.9% 10 Ml Syringe) 10 ml FLUSH ASDIRECTED PRN PRN Reason: Keep Vein Open Last Admin: 08/05/20 08:15 Dose: 10 ml Documented by: Sodium Chloride (Sodium Chloride 0.9% 2.5 Ml Syringe) 2.5 ml FLUSH ASDIRECTED PRN PRN Reason: Keep Vein Open Last Admin: 08/05/20 08:15 Dose: 2.5 ml Documented by: Discontinued Medications Aspirin (Aspirin 81 Mg Tab.Chew) 324 mg PO ONETIME ONE Stop: 08/05/20 08:06 Last Admin: 08/05/20 08:13 Dose: 324 mg Documented by: Iopamidol (Iopamidol 755 Mg/Ml 500 Ml Multipack Bottle) 100 ml IVPUSH ONETIME ONE Stop: 08/05/20 09:51 Last Admin: 08/05/20 09:50 Dose: 100 ml Documented by: Nitroglycerin (Nitroglycerin 0.4 Mg Tab.Sl) 0.4 mg SL Q5M PRN PRN Reason: Chest Pain Last Admin: 08/05/20 08:31 Dose: 0.4 mg Documented by:
== END 2020-08-06 11:50 | disposition home or self-care (01) ==
LOC: MW.ED 07:47 → MW.MS 10:12
PROVIDERS: ADMIT Internal Medicine; ATTEND Internal Medicine
DX: R07.89 Other chest pain (principal); I48.91 Unspecified atrial fibrillation; I11.0 Hypertensive heart disease with heart failure; I50.33 Acute on chronic diastolic (congestive) heart failure; E11.9 Type 2 diabetes mellitus without complications; E78.00 Pure hypercholesterolemia, unspecified; G47.33 Obstructive sleep apnea (adult) (pediatric); Z88.8 Allergy status to other drugs, medicaments and biological substances; Z79.82 Long term (current) use of aspirin; Z87.891 Personal history of nicotine dependence; Z86.16 Personal history of COVID-19; Z20.822 Contact with and (suspected) exposure to COVID-19
CPT/HCPCS: 36415; 71045; 71275; 80053; 82947; 83036; 83880; 84484; 85025; 85379; 87635; 93005; A9270; J2270; Q9967; 96374; 99285-25; G0378; U0002

== ENCOUNTER 2020-10-04 09:38 | Emergency (ER) | payer OTHER ==
[2020-10-04] MEDS ORDERED: Sodium Chloride 0.9% 10 ML Syringe FLUSH PRN (09:44)
[2020-10-04] MEDS ORDERED: Sodium Chloride 0.9% 2.5 ML Syringe FLUSH PRN (09:44)
--- NOTE | 2020-10-04 09:44 | EDM.PDOC ---
ED HPI GENERAL MEDICAL PROBLEM - General Chief Complaint: Trauma Time Seen by Provider: 10/04/20 09:41 Source of Information: Reports: Patient History Limitations: Reports: No Limitations - History of Present Illness INITIAL COMMENTS - FREE TEXT/NARRATIVE: 55-year-old male past medical history hypertension, obesity, ANGIE on CPAP, gout, CHF, type 2 diabetes, atrial fibrillation on Eliquis, CAD status post NM presents for fall. Patient was climbing up metal stairs and fell approximately 4 stairs down. He hit his head and did not lose consciousness. He was able to get up on his own and has ambulated without pain. His only complaint is neck pain and pain in the back of hte head where he hit. No bleeding. No lightheadedness. No one-sided body weakness, confusion, slurred speech, or word finding difficulties. [facility] for work[facility] considering he is on anticoagulation. head Pain Score (Numeric/FACES): 6 - Related Data Allergies Allergy/AdvReac Type Severity Reaction Status Date / Time lisinopril Allergy Anaphylactic Verified 10/04/20 10:05 Shock Home Meds: Home Meds Acetaminophen 325 mg PO DAILY 05/05/18 [History] Aspirin 81 mg PO DAILY 05/05/18 [History] Citalopram Hydrobromide [Celexa] 40 mg PO DAILY 05/05/18 [History] Furosemide 40 mg PO BID 05/05/18 [History] Potassium Chloride 10 meq PO BID 05/05/18 [History] QUEtiapine Fumarate [Seroquel Xr] 1 - 2 tab PO BEDTIME PRN 05/05/18 [History] Albuterol Sulfate [Proair Respiclick] 2 puff IH Q6HR PRN 11/14/18 [History] Diclofenac Sodium [Voltaren 1% Gel] 4 gm TP QID PRN 11/14/18 [History] Ibuprofen [Motrin] 800 mg PO BIDM PRN 10 Days #20 tab 04/11/19 [Rx] Allopurinol [Zyloprim] 300 mg PO DAILY 08/05/20 [History] Apixaban [Eliquis] 5 mg PO BID 08/05/20 [History] Cholecalciferol (Vitamin D3) [Vitamin D3] 75 mcg PO DAILY 08/05/20 [History] Colchicine 0.6 mg PO ASDIRECTED PRN 08/05/20 [History] Famotidine 20 mg PO BID 08/05/20 [History] Rosuvastatin [Crestor] 10 mg PO BEDTIME 08/05/20 [History] busPIRone [Buspar] 15 mg PO BID 08/05/20 [History] dilTIAZem HCL [Diltiazem 24Hr ER] 240 mg PO BEDTIME 08/05/20 [History] Past Medical History HEENT History: Reports: None Other HEENT History: Patient states difficulty hearing at times- low tones are hard to hear Cardiovascular History: Reports: Heart Failure, High Cholesterol, Hypertension, SOB on Exertion Respiratory History: Reports: Bronchitis, Recurrent, Sleep Apnea, SOB Gastrointestinal History: Reports: None Genitourinary History: Reports: None Musculoskeletal History: Reports: None Neurological History: Reports: None Other Neuro History: occasional migraines Psychiatric History: Reports: Anxiety, Depression Endocrine/Metabolic History: Reports: Diabetes, Type II Insulin Pump Model and Gyroscopic Engineering Technician: None Hematologic History: Reports: None Immunologic History: Reports: None Oncologic (Cancer) History: Reports: None Dermatologic History: Reports: None - Infectious Disease History Infectious Disease History: Reports: Chicken Pox, Novel Coronavirus - Past Surgical History HEENT Surgical History: Reports: None Cardiovascular Surgical History: Reports: Other (See Below) Other Cardiovascular Surgeries/Procedures: Angiogram Respiratory Surgical History: Reports: None GI Surgical History: Reports: None Male Surgical History: Reports: None Endocrine Surgical History: Reports: None Neurological Surgical History: Reports: None Musculoskeletal Surgical History: Reports: Other (See Below) Other Musculoskeletal Surgeries/Procedures:: surgery to knees & foot and shoulder, forearm Dermatological Surgical History: Reports: None Social & Family History - Family History Family Medical History: No Pertinent Family History - Caffeine Use Caffeine Use: Reports: Coffee, Soda - Living Situation & Occupation Living situation: Reports: Single Occupation: Employed Review of Systems - Review of Systems Review Of Systems: Comprehensive ROS is negative, except as noted in HPI. ED EXAM, GENERAL - Physical Exam Exam: See Below Exam Limited By: No Limitations General Appearance: Alert, WD/WN, No Apparent Distress Eye Exam: Bilateral Eye: EOMI, PERRL Ears: Hearing Grossly Normal Throat/Mouth: Normal Voice, No Airway Compromise Head: Atraumatic, Normocephalic Neck: Normal Inspection, Supple, Non-Tender, Other (C-collar in place) Respiratory/Chest: No Respiratory Distress, Lungs Clear, Normal Breath Sounds, No Accessory Muscle Use Cardiovascular: Normal Peripheral Pulses, Regular Rate, Rhythm GI/Abdominal: Soft, Non-Tender Back Exam: Normal Inspection. No: Paraspinal Tenderness, Vertebral Tenderness Extremities: Normal Inspection, Normal Range of Motion, Non-Tender Neurological: Alert, Oriented, CN II-XII Intact, Normal Cognition, Normal Gait, No Motor/Sensory Deficits Psychiatric: Normal Affect, Normal Mood Skin Exam: Warm, Dry, Intact, Normal Color Course - Vital Signs Last Recorded V/S: Last Vital Signs Temp 97.1 F 10/04/20 09:55 Pulse 104 H 10/04/20 09:55 Resp 22 H 10/04/20 09:55 BP 134/99 H 10/04/20 09:55 Pulse Ox 93 L 10/04/20 09:55 - Orders/Labs/Meds Orders: Active Orders 24 hr Category Date Time Status Sodium Chloride 0.9% [Saline Flush] Med 10/04/20 09:44 Active 10 ml FLUSH ASDIRECTED PRN Sodium Chloride 0.9% [Saline Flush] Med 10/04/20 09:44 Active 2.5 ml FLUSH ASDIRECTED PRN Saline Lock Insert [OM.PC] Stat Oth 10/04/20 09:44 Ordered Medication Orders Sodium Chloride (Sodium Chloride 0.9% 10 Ml Syringe) 10 ml FLUSH ASDIRECTED PRN PRN Reason: Keep Vein Open Last Admin: 10/04/20 10:33 Dose: 10 ml Documented by: EL Sodium Chloride (Sodium Chloride 0.9% 2.5 Ml Syringe) 2.5 ml FLUSH ASDIRECTED PRN PRN Reason: Keep Vein Open Last Admin: 10/04/20 10:33 Dose: 2.5 ml Documented by: EL Labs: Laboratory Tests 10/04/20 10/04/20 10/04/20 Range/Units 09:46 09:46 09:46 WBC 12.90 H (4.0-11.0) K/uL RBC 5.47 (4.50-5.90) M/uL Hgb 16.9 (13.0-17.0) g/dL Hct 49.8 (38.0-50.0) % MCV 91.0 (80.0-98.0) fL MCH 30.9 (27.0-32.0) pg MCHC 33.9 (31.0-37.0) g/dL RDW Std Deviation 46.3 (28.0-62.0) fl RDW Coeff of Tita 14 (11.0-15.0) % Plt Count 267 (150-400) K/uL MPV 10.20 (7.40-12.00) fL Neut % (Auto) 64.7 (48.0-80.0) % Lymph % (Auto) 21.2 (16.0-40.0) % [place] % (Auto) 8.4 (0.0-15.0) % Eos % (Auto) 5.2 (0.0-7.0) % Baso % (Auto) 0.5 (0.0-1.5) % Neut # (Auto) 8.4 H (1.4-5.7) K/uL Lymph # (Auto) 2.7 H (0.6-2.4) K/uL [place] # (Auto) 1.1 H (0.0-0.8) K/uL Eos # (Auto) 0.7 (0.0-0.7) K/uL Baso # (Auto) 0.1 (0.0-0.1) K/uL Nucleated RBC % 0.0 /100WBC Nucleated RBCs # 0 K/uL INR 1.13 APTT 24.7 (18.6-31.3) SEC Sodium 138 (136-148) mmol/L Potassium 4.0 (3.5-5.1) mmol/L Chloride 99 (98-107) mmol/L Carbon Dioxide 25.1 (21.0-32.0) mmol/L BUN 20 H (7.0-18.0) mg/dL Creatinine 1.6 H (0.8-1.3) mg/dL Est Cr Clr Drug Dosing 52.78 mL/min Estimated GFR (MDRD) 45.3 ml/min Glucose 238 H (74-106) mg/dL Calcium 8.9 (8.5-10.1) mg/dL Total Bilirubin 0.5 (0.2-1.0) mg/dL AST 49 H (15-37) IU/L ALT 59 (14-63) IU/L Alkaline Phosphatase 92 (46-116) U/L Total Protein 8.0 (6.4-8.2) g/dL Albumin 3.9 (3.4-5.0) g/dL Globulin 4.1 H (2.6-4.0) g/dL Albumin/Globulin Ratio 1.0 (0.9-1.6) Meds: Medications Generic Name Dose Route Start Last Admin Trade Name Freq PRN Reason Stop Dose Admin Sodium Chloride 10 ml 10/04/20 09:44 10/04/20 10:33 Sodium Chloride 0.9% 10 Ml Syringe FLUSH 10 ml ASDIRECTED PRN Administration Keep Vein Open Sodium Chloride 2.5 ml 10/04/20 09:44 10/04/20 10:33 Sodium Chloride 0.9% 2.5 Ml Syringe FLUSH 2.5 ml ASDIRECTED PRN Administration Keep Vein Open Discontinued Medications Generic Name Dose Route Start Last Admin Trade Name Freq PRN Reason Stop Dose Admin Oxycodone/Acetaminophen 2 tab 10/04/20 10:10 10/04/20 10:31 Acetaminophen/Oxycodone 325-5 Mg Tab PO 10/04/20 10:11 2 tab ONETIME ONE Administration - Re-Assessments/Exams Free Text/Narrative Re-Assessment/Exam: 10/04/20 10:11 We will get head and C-spine CT imaging to ensure no intracranial pathology or cervical spine fracture. Will get basic labs. Will treat patient pain. 10/04/20 10:[address], C-spine, labs are grossly unremarkable. Will discharge patient home with PMD follow-up. Departure - Departure Time of Disposition: 10:52 Disposition: Home, Self-Care 01 Condition: Good Clinical Impression: CHI (closed head injury) Qualifiers: Encounter type: initial encounter Qualified Code(s): S09.90XA - Unspecified injury of head, initial encounter - Discharge Information Instructions: Head Injury, Adult Forms: ED Department Discharge Additional Instructions: Your labs and imaging are unremarkable. You can take tylenol for headache. You should take it easy for the next couple of days. You could have a concussion and may experience some brain fogginess and lightheadedness. However if you experience a suddenly worsening headache, difficulty with speech, slurred speech, or weakness, please come back to the ER immediately. The best way to protect yourself and others from COVID-19 is to take one of the three safe and effective vaccines that have been proven to substantially reduce risk of both infection and severe illness. [facility] is currently offering COVID vaccinations for anyone age 18 and older. To schedule an appointment call [phone]. Or, to be contacted by our clinics about scheduling your vaccine online, please go to [email or web address] The following information is given to patients seen in the emergency department who are being discharged to home. This information is to outline your options for follow-up care. We provide all patients seen in our emergency department with a follow-up referral. The need for follow-up, as well as the timing and circumstances, are variable depending upon the specifics of your emergency department visit. If you don't have a primary care physician on staff, we will provide you with a referral. We always advise you to contact your personal physician following an emergency department visit to inform them of the circumstance of the visit and for follow-up with them and/or the need for any referrals to a consulting specialist. The emergency department will also refer you to a specialist when appropriate. This referral assures that you have the opportunity for follow-up care with a specialist. All of these measure are taken in an effort to provide you with optimal care, which includes your follow-up. Under all circumstances we always encourage you to contact your private physician who remains a resource for coordinating your care. When calling for follow-up care, please make the office aware that this follow-up is from your recent emergency room visit. If for any reason you are refused follow-up, please contact the [facility] Emergency Department at and asked to speak to the emergency department charge nurse. Please follow up with your primary care physician. If you do not have a primary care physician, see below: [facility] [address] [place] [id number] [facility] [address] [place] [address] Sepsis Event Note (ED) - Focused Exam Vital Signs: Vital Signs Temp Pulse Resp BP Pulse Ox 10/04/20 09:55 97.1 F 104 H 22 H 134/99 H 93 L - My Orders Last 24 Hours: My Active Orders 10/04/20 09:44 Sodium Chloride 0.9% [Saline Flush] 10 ml FLUSH ASDIRECTED PRN Sodium Chloride 0.9% [Saline Flush] 2.5 ml FLUSH ASDIRECTED PRN Saline Lock Insert [OM.PC] Stat - Assessment/Plan Last 24 Hours: My Active Orders 10/04/20 09:44 Sodium Chloride 0.9% [Saline Flush] 10 ml FLUSH ASDIRECTED PRN Sodium Chloride 0.9% [Saline Flush] 2.5 ml FLUSH ASDIRECTED PRN Saline Lock Insert [OM.PC] Stat
[2020-10-04] MEDS ORDERED: Acetaminophen/oxyCODONE 325-5 MG Tab PO ONE (10:10)
[2020-10-04 10:21] LABS: CARBON DIOXIDE,CO2 25.1 mmol/L (21.0-32.0)
--- NOTE | 2020-10-04 10:46 | CT ---
INDICATION: Fell. Anticoagulated. TECHNIQUE: Scanning of the head was performed without IV contrast material. Coronal and sagittal reconstructions were obtained. COMPARISON: Today`s cervical spine CT. FINDINGS: No intracranial hemorrhage is demonstrated. No mass effect or ventricular enlargement is evident. No calvarial or obvious facial fracture is identified. The visualized paranasal and mastoid sinuses are clear. IMPRESSION: Negative noncontrast head CT. Please note that all CT scans at this facility use dose modulation, iterative reconstruction, and/or weight-based dosing when appropriate to reduce radiation dose to as low as reasonably achievable. Dictated by Edward Crystal MD @ 10/04/2020 10:45:[address] Edward Crystal @ Oct 04 2020 10:45AM
--- NOTE | 2020-10-04 10:50 | CT ---
INDICATION: Neck pain. Fell. Anticoagulated. TECHNIQUE: Volumetric helical scanning of the cervical spine was performed without contrast material. Sagittal and coronal reconstructions were also obtained. COMPARISON: Today`s head CT. FINDINGS: No fracture, traumatic subluxation or prevertebral soft tissue swelling is demonstrated. Multilevel spondylosis is demonstrated. Reversal of the cervical lordosis is noted. IMPRESSION: 1. Negative for acute traumatic abnormality. 2. Multilevel spondylosis and reversal of the cervical lordosis. Please note that all CT scans at this facility use dose modulation, iterative reconstruction, and/or weight-based dosing when appropriate to reduce radiation dose to as low as reasonably achievable. Dictated by Edward Crystal MD @ 10/04/2020 10:48:[address] Edward Crystal @ Oct 04 2020 10:48AM
== END 2020-10-04 11:20 | disposition home or self-care (01) ==
LOC: MW.ED 09:38
DX: S09.90XA Unspecified injury of head, initial encounter (principal); I11.0 Hypertensive heart disease with heart failure; I50.9 Heart failure, unspecified; E78.00 Pure hypercholesterolemia, unspecified; E11.9 Type 2 diabetes mellitus without complications; I48.91 Unspecified atrial fibrillation; I25.10 Atherosclerotic heart disease of native coronary artery without angina pectoris; I25.2 Old myocardial infarction; M10.9 Gout, unspecified; E66.9 Obesity, unspecified; Z68.43 Body mass index [BMI] 50.0-59.9, adult; Z86.16 Personal history of COVID-19; Z88.8 Allergy status to other drugs, medicaments and biological substances; Z79.82 Long term (current) use of aspirin; Z79.01 Long term (current) use of anticoagulants; Z79.899 Other long term (current) drug therapy; W10.9XXA Fall (on) (from) unspecified stairs and steps, initial encounter
CPT/HCPCS: 70450; 72125; 80053; 85025; 85610; 85730; 99284; A9270

== ENCOUNTER 2023-10-28 10:01 | Emergency (ER) | payer OTHER ==
[2023-10-28] MEDS ORDERED: Sodium Chloride 0.9% 2.5 ML Syringe FLUSH PRN (10:17)
[2023-10-28] MEDS ORDERED: Sodium Chloride 0.9% 10 ML Syringe FLUSH PRN (10:17)
[2023-10-28 10:23] LABS: BASOPHILS ABSOLUTE AUTO 0.08 K/uL (0.00-0.20); BASOPHILS PERCENT AUTO 0.6 % (0.0-1.0); EOSINOPHILS ABSOLUTE AUTO 0.43 K/uL (0.00-0.45); HEMATOCRIT 47.3 % (42.0-52.0); HEMOGLOBIN 15.6 g/dL (14.0-18.0); IMMATURE GRAN PERCENT AUTO 1.4 % (0.0-0.4); LYMPHOCYTES ABSOLUTE AUTO 3.56 K/uL (1.00-4.80); LYMPHOCYTES PERCENT AUTO 25.1 % (24.0-44.0); MEAN CORPUSCULAR HEMOGLOBIN 29.4 pg (28.0-32.0); MEAN CORPUSCULAR VOLUME 89.2 fL (83.0-99.0); MEAN PLATELET VOLUME 9.2 fL (9.4-12.4); MONOCYTES ABSOLUTE AUTO 1.16 K/uL (0.00-0.80); MONOCYTES PERCENT AUTO 8.2 % (0.0-8.0); NEUTROPHILS ABSOLUTE AUTO 8.74 K/uL (1.80-7.70); NEUTROPHILS PERCENT AUTO 61.7 % (41.0-71.0); PLATELET COUNT,PLT 273 K/uL (150-400); WHITE BLOOD CELL COUNT,WBC 14.17 K/uL (3.9-11.3)
[2023-10-28] MEDS: Sodium Chloride 0.9% 1,000 ML IV ONE ×2 (10:29→13:00)
[2023-10-28 10:44] LABS: ALANINE AMINOTRANSFERASE,ALT 64 IU/L (14-63); ALBUMIN 3.6 g/dL (3.4-5.0); ALKALINE PHOSPHATASE 78 U/L (46-116); ASPARTATE AMNIOTRANSFERASE,AST 28 IU/L (15-37); BILIRUBIN TOTAL 0.3 mg/dL (0.2-1.0); BLOOD UREA NITROGEN,BUN 29 mg/dL (7.0-18.0); CALCIUM 8.9 mg/dL (8.5-10.1); CARBON DIOXIDE,CO2 24.7 mmol/L (21.0-32.0); CHLORIDE,CL 102 mmol/L (98-107); CREATININE 2.2 mg/dL (0.8-1.3); EST CRCL DRUG DOSING (CG) 37.05 mL/min; ESTIMATED GFR 34 mL/min (>60); ETHANOL BLOOD MEDICAL <3 mg/dL; GLUCOSE RANDOM 178 mg/dL (74-106); MAGNESIUM 2.4 mg/dL (1.8-2.4); POTASSIUM,K 4.3 mmol/L (3.5-5.1); PROTEIN TOTAL,TP 7.3 g/dL (6.4-8.2); SODIUM,NA 137 mmol/L (136-148)
[2023-10-28 11:26] LABS: APPEARANCE,URINE CLEAR; BILIRUBIN,URINE NEGATIVE (NEGATIVE); COLOR,URINE YELLOW; GLUCOSE,URINE >=1000 mg/dL (NEGATIVE); KETONES,URINE NEGATIVE (NEGATIVE); LEUKOCYTE ESTERASE,URINE NEGATIVE (NEGATIVE); NITRITE,URINE NEGATIVE (NEGATIVE); OCCULT BLOOD,URINE NEGATIVE (NEGATIVE); PROTEIN,URINE NEGATIVE (NEGATIVE); UROBILINOGEN,URINE 0.2 EU/dL (<2.0)
[2023-10-28 11:38] LABS: AMPHETAMINES SCREEN, URINE NEGATIVE (CUTOFF=500); BARBITURATE SCREEN,URINE NEGATIVE (CUTOFF=200); BENZODIAZEPINES SCREEN,URINE NEGATIVE (CUTOFF=150); BUPRENORPHINE SCREEN,URINE NEGATIVE (CUTOFF=10); METHADONE SCREEN, URINE NEGATIVE (CUTOFF=200); METHAMPHETAMINES SCREEN, URINE NEGATIVE (CUTOFF=500); OXYCODONE SCREEN,URINE NEGATIVE (CUT0FF=100); PCP SCREEN,URINE NEGATIVE (CUTOFF=25); THC SCREEN,URINE 20 NG/ML NEGATIVE (CUTOFF=50)
== END 2023-10-28 15:24 | disposition home or self-care (01) ==
LOC: MW.ED 10:01
DX: S06.9X1A Unspecified intracranial injury with loss of consciousness of 30 minutes or less, initial encounter (principal); E86.0 Dehydration; T67.5XXA Heat exhaustion, unspecified, initial encounter; I11.0 Hypertensive heart disease with heart failure; I50.9 Heart failure, unspecified; I48.91 Unspecified atrial fibrillation; E78.00 Pure hypercholesterolemia, unspecified; E11.9 Type 2 diabetes mellitus without complications; Z86.16 Personal history of COVID-19; Z79.899 Other long term (current) drug therapy; Z79.1 Long term (current) use of non-steroidal anti-inflammatories (NSAID); Z79.82 Long term (current) use of aspirin; Z79.01 Long term (current) use of anticoagulants; Z88.8 Allergy status to other drugs, medicaments and biological substances; Z75.8 Other problems related to medical facilities and other health care; W06.XXXA Fall from bed, initial encounter; Y92.812 Truck as the place of occurrence of the external cause
CPT/HCPCS: 36415; 70450; 70450-26; 80053; 80305-QW; 80307; 81003; 82947; 83735; 84484; 85025; 93005; 93010; 96360; 96361; 99283; 99285-25; J7030

== ENCOUNTER 2024-04-03 09:02 | Inpatient (IN) | payer OTHER ==
[2024-04-03 10:23] LABS: BASOPHILS ABSOLUTE AUTO 0.11 K/uL (0.00-0.20); EOSINOPHILS ABSOLUTE AUTO 0.72 K/uL (0.00-0.45); EOSINOPHILS PERCENT AUTO 6.8 % (0.0-6.0); HEMATOCRIT 49.2 % (42.0-52.0); HEMOGLOBIN 16.1 g/dL (14.0-18.0); IMMATURE GRAN ABSOLUTE AUTO 0.07 K/uL (0.00-0.05); IMMATURE GRAN PERCENT AUTO 0.7 % (0.0-0.4); LYMPHOCYTES PERCENT AUTO 29.2 % (24.0-44.0); MEAN CORPUSCULAR HEMOGLOBIN 28.6 pg (28.0-32.0); MEAN CORPUSCULAR HGB CONC 32.7 g/dL (32.0-36.0); MEAN CORPUSCULAR VOLUME 87.4 fL (83.0-99.0); MEAN PLATELET VOLUME 9.9 fL (9.4-12.4); MONOCYTES ABSOLUTE AUTO 0.88 K/uL (0.00-0.80); MONOCYTES PERCENT AUTO 8.3 % (0.0-8.0); NEUTROPHILS ABSOLUTE AUTO 5.74 K/uL (1.80-7.70); PLATELET COUNT,PLT 219 K/uL (150-400); RED BLOOD CELL COUNT 5.63 M/uL (4.52-5.90); WHITE BLOOD CELL COUNT,WBC 10.62 K/uL (3.9-11.3)
[2024-04-03 10:51] LABS: ALBUMIN 3.8 g/dL (3.4-5.0); BILIRUBIN TOTAL 0.4 mg/dL (0.2-1.0); CALCIUM 9.9 mg/dL (8.5-10.1); CARBON DIOXIDE,CO2 27.2 mmol/L (21.0-32.0); CREATININE 1.7 mg/dL (0.8-1.3); EST CRCL DRUG DOSING (CG) 47.36 mL/min; MAGNESIUM 2.6 mg/dL (1.8-2.4); PROTEIN TOTAL,TP 7.7 g/dL (6.4-8.2)
[2024-04-03] MEDS: Furosemide 40 MG/4 ML VIAL IV ONE (12:58)
[2024-04-03] MEDS ORDERED: Docusate Sodium 100 MG Cap PO PRN (13:25)
[2024-04-03] MEDS ORDERED: Sodium Chloride 0.9% 2.5 ML Syringe FLUSH PRN (13:25)
[2024-04-03] MEDS ORDERED: Sodium Chloride 0.9% 10 ML Syringe FLUSH PRN (13:25)
[2024-04-03] MEDS ORDERED: Melatonin 3 MG Tab PO PRN (13:25)
[2024-04-03] MEDS ORDERED: Ondansetron 4 MG/2 ML SDV IVPUSH PRN (13:25)
[2024-04-03] MEDS ORDERED: Polyethylene Glycol 3350 Powder 17 GM Packet PO PRN (13:25)
[2024-04-03] MEDS ORDERED: DICLOFENAC SODIUM TP PRN (16:21)
[2024-04-03] MEDS ORDERED: QUEtiapine 25 MG Tab PO PRN (16:21)
[2024-04-03] MEDS ORDERED: Albuterol 8 GM Inhaler INH PRN (16:21)
[2024-04-03] MEDS ORDERED: 50% Dextrose in Water 50 ML Syringe IVPUSH PRN (16:35)
[2024-04-03] MEDS ORDERED: Glucagon,Human Recombinant 1 MG Vial IM PRN (16:35)
[2024-04-03] MEDS: Insulin Aspart 100 Units/ML 3 ML Pen SUBCUT SCH (16:59)
[2024-04-03] MEDS: Bumetanide 1 MG/4 ML MDV IVPUSH SCH (17:02)
[2024-04-03] MEDS ORDERED: Furosemide 40 MG/4 ML VIAL IVPUSH SCH (18:00)
[2024-04-03] MEDS: Apixaban 5 MG Tab PO SCH (20:59)
[2024-04-03] MEDS: busPIRone 15 MG Tab PO SCH (20:59)
[2024-04-03] MEDS: Famotidine 20 MG Tab PO SCH (21:00)
[2024-04-03] MEDS: QUEtiapine 25 MG Tab PO PRN (21:08)
[2024-04-03] MEDS: Melatonin 3 MG Tab PO PRN (21:09)
[2024-04-03] MEDS: Diltiazem 120 MG Cap.CD PO SCH (21:09)
[2024-04-04] MEDS: Acetaminophen 325 MG Tab PO PRN (00:39)
[2024-04-04] MEDS: Albuterol/Ipratropium 3.0-0.5 MG/3 ML Neb Soln NEB PRN (00:39)
[2024-04-04 06:07] LABS: BASOPHILS PERCENT AUTO 0.8 % (0.0-1.0); EOSINOPHILS ABSOLUTE AUTO 0.78 K/uL (0.00-0.45); HEMATOCRIT 45.9 % (42.0-52.0); HEMOGLOBIN 15.6 g/dL (14.0-18.0); IMMATURE GRAN ABSOLUTE AUTO 0.07 K/uL (0.00-0.05); IMMATURE GRAN PERCENT AUTO 0.5 % (0.0-0.4); LYMPHOCYTES ABSOLUTE AUTO 2.72 K/uL (1.00-4.80); MEAN CORPUSCULAR HEMOGLOBIN 28.8 pg (28.0-32.0); MEAN CORPUSCULAR VOLUME 84.8 fL (83.0-99.0); MONOCYTES ABSOLUTE AUTO 1.03 K/uL (0.00-0.80); MONOCYTES PERCENT AUTO 7.9 % (0.0-8.0); NEUTROPHILS ABSOLUTE AUTO 8.26 K/uL (1.80-7.70); NEUTROPHILS PERCENT AUTO 63.8 % (41.0-71.0); PLATELET COUNT,PLT 223 K/uL (150-400); RED BLOOD CELL COUNT 5.41 M/uL (4.52-5.90); WHITE BLOOD CELL COUNT,WBC 12.96 K/uL (3.9-11.3)
[2024-04-04 06:25] LABS: CALCIUM 8.9 mg/dL (8.5-10.1); CARBON DIOXIDE,CO2 25.8 mmol/L (21.0-32.0); CREATININE 1.4 mg/dL (0.8-1.3); EST CRCL DRUG DOSING (CG) 57.51 mL/min; POTASSIUM,K 3.6 mmol/L (3.5-5.1)
[2024-04-04] MEDS: Allopurinol 300 MG Tab PO SCH (09:23)
[2024-04-04] MEDS: Citalopram 20 MG Tab PO SCH (09:24)
[2024-04-04] MEDS: Acetaminophen 325 MG Tab PO SCH (09:24)
[2024-04-04] MEDS: Potassium Chloride 20 MEQ Tab.ER PO ONE (12:17)
[2024-04-04 12:34] LABS: APPEARANCE,URINE CLEAR; COLOR,URINE YELLOW
[2024-04-04 12:35] LABS: BILIRUBIN,URINE NEGATIVE (NEGATIVE); GLUCOSE,URINE >1000 mg/dL (NEGATIVE); KETONES,URINE NEGATIVE (NEGATIVE); LEUKOCYTE ESTERASE,URINE NEGATIVE (NEGATIVE); NITRITE,URINE NEGATIVE (NEGATIVE); OCCULT BLOOD,URINE NEGATIVE (NEGATIVE); PROTEIN,URINE NEGATIVE (NEGATIVE); UROBILINOGEN,URINE 0.2 EU/dL (<2.0)
[2024-04-05] MEDS: Ibuprofen 400 MG Tab PO ONE (01:55)
[2024-04-05] MEDS: Benzonatate 100 MG Cap PO PRN (01:56)
[2024-04-05 06:07] LABS: BASOPHILS ABSOLUTE AUTO 0.11 K/uL (0.00-0.20); BASOPHILS PERCENT AUTO 0.9 % (0.0-1.0); EOSINOPHILS ABSOLUTE AUTO 0.76 K/uL (0.00-0.45); HEMATOCRIT 47.8 % (42.0-52.0); HEMOGLOBIN 15.9 g/dL (14.0-18.0); IMMATURE GRAN ABSOLUTE AUTO 0.07 K/uL (0.00-0.05); IMMATURE GRAN PERCENT AUTO 0.6 % (0.0-0.4); LYMPHOCYTES ABSOLUTE AUTO 2.95 K/uL (1.00-4.80); LYMPHOCYTES PERCENT AUTO 23.4 % (24.0-44.0); MEAN CORPUSCULAR HEMOGLOBIN 28.5 pg (28.0-32.0); MEAN CORPUSCULAR HGB CONC 33.3 g/dL (32.0-36.0); MEAN CORPUSCULAR VOLUME 85.8 fL (83.0-99.0); MEAN PLATELET VOLUME 9.7 fL (9.4-12.4); MONOCYTES ABSOLUTE AUTO 1.12 K/uL (0.00-0.80); MONOCYTES PERCENT AUTO 8.9 % (0.0-8.0); NEUTROPHILS PERCENT AUTO 60.2 % (41.0-71.0); PLATELET COUNT,PLT 224 K/uL (150-400); RED BLOOD CELL COUNT 5.57 M/uL (4.52-5.90); WHITE BLOOD CELL COUNT,WBC 12.61 K/uL (3.9-11.3)
[2024-04-05 06:22] LABS: CALCIUM 9.3 mg/dL (8.5-10.1); CARBON DIOXIDE,CO2 25.7 mmol/L (21.0-32.0); CREATININE 1.3 mg/dL (0.8-1.3); EST CRCL DRUG DOSING (CG) 61.94 mL/min; MAGNESIUM 2.3 mg/dL (1.8-2.4); POTASSIUM,K 4.1 mmol/L (3.5-5.1)
== END 2024-04-05 13:15 | disposition home or self-care (01) | DRG 291 ==
LOC: MW.ED 09:02 → MW.MS 12:17
PROVIDERS: ADMIT Family Medicine; ATTEND Family Medicine
DX: J44.1 Chronic obstructive pulmonary disease with (acute) exacerbation (principal); I11.0 Hypertensive heart disease with heart failure; I50.33 Acute on chronic diastolic (congestive) heart failure; J18.0 Bronchopneumonia, unspecified organism; Z68.42 Body mass index [BMI] 45.0-49.9, adult; E87.70 Fluid overload, unspecified; F32.A Depression, unspecified; I50.9 Heart failure, unspecified; I48.0 Paroxysmal atrial fibrillation; E11.9 Type 2 diabetes mellitus without complications; E66.01 Morbid (severe) obesity due to excess calories; E78.00 Pure hypercholesterolemia, unspecified; G47.33 Obstructive sleep apnea (adult) (pediatric); Z99.81 Dependence on supplemental oxygen; Z79.1 Long term (current) use of non-steroidal anti-inflammatories (NSAID); Z79.51 Long term (current) use of inhaled steroids; Z79.01 Long term (current) use of anticoagulants; Z79.02 Long term (current) use of antithrombotics/antiplatelets; Z88.8 Allergy status to other drugs, medicaments and biological substances; Z79.899 Other long term (current) drug therapy; Z75.8 Other problems related to medical facilities and other health care
CPT/HCPCS: 36415; 71046; 71046-26; 80048; 80053; 81003; 82947; 83735; 83880; 84484; 85025; 87428-QW; 93005; 93306; A9270-GY; J1815-GY; J1940; J3490; J7620-GY

== ENCOUNTER 2024-12-16 11:15 | Observation (INO) | payer OTHER ==
[2024-12-16] MEDS ORDERED: Sodium Chloride 0.9% 2.5 ML Syringe FLUSH PRN ×2 (11:35→15:28)
[2024-12-16] MEDS ORDERED: Sodium Chloride 0.9% 10 ML Syringe FLUSH PRN ×2 (11:35→15:28)
[2024-12-16 11:42] LABS: BASOPHILS ABSOLUTE AUTO 0.10 K/uL (0.00-0.20); BASOPHILS PERCENT AUTO 0.6 % (0.0-1.0); EOSINOPHILS ABSOLUTE AUTO 0.39 K/uL (0.00-0.45); EOSINOPHILS PERCENT AUTO 2.2 % (0.0-6.0); IMMATURE GRAN ABSOLUTE AUTO 0.34 K/uL (0.00-0.05); IMMATURE GRAN PERCENT AUTO 1.9 % (0.0-0.4); LYMPHOCYTES ABSOLUTE AUTO 3.34 K/uL (1.00-4.80); LYMPHOCYTES PERCENT AUTO 18.5 % (24.0-44.0); MEAN PLATELET VOLUME 9.6 fL (9.4-12.4); MONOCYTES ABSOLUTE AUTO 1.40 K/uL (0.00-0.80); MONOCYTES PERCENT AUTO 7.8 % (0.0-8.0); NEUTROPHILS ABSOLUTE AUTO 12.49 K/uL (1.80-7.70); NEUTROPHILS PERCENT AUTO 69.0 % (41.0-71.0); NRBC ABSOLUTE 0.00 K/uL (0.00-0.02); NRBC PERCENT 0.0 /100WBC (0.0-0.2); PLATELET COUNT,PLT 313 K/uL (150-400); RED BLOOD CELL COUNT 5.90 M/uL (4.52-5.90); WHITE BLOOD CELL COUNT,WBC 18.06 K/uL (3.9-11.3)
[2024-12-16 11:50] LABS: INR 1.12 (0.86-1.11); PTT,PARTIAL THROMBOPLSTIN TIME 27.9 SEC (23.9-30.7)
[2024-12-16] MEDS: Iopamidol 755 MG/ML 500 ML Multipack Bottle IVPUSH STA (11:54)
[2024-12-16 12:04] LABS: LACTIC ACID 2.8 mmol/L (0.4-2.0)
[2024-12-16 12:09] LABS: A/G RATIO 1.0 (0.9-1.6); ALANINE AMINOTRANSFERASE,ALT 59 IU/L (14-63); ASPARTATE AMNIOTRANSFERASE,AST 32 IU/L (15-37); BILIRUBIN TOTAL 0.6 mg/dL (0.2-1.0); BLOOD UREA NITROGEN,BUN 28 mg/dL (7.0-18.0); CARBON DIOXIDE,CO2 23.5 mmol/L (21.0-32.0); CHLORIDE,CL 98 mmol/L (98-107); CREATINE KINASE,CK 83 U/L (26-308); CREATININE 1.9 mg/dL (0.8-1.3); EST CRCL DRUG DOSING (CG) 42.38 mL/min; GLUCOSE RANDOM 264 mg/dL (74-106); POTASSIUM,K 4.1 mmol/L (3.5-5.1); PRO B-TYPE NATRIUR PEPT,BNPPRO 27 pg/mL (0-125); PROTEIN TOTAL,TP 8.0 g/dL (6.4-8.2); SODIUM,NA 135 mmol/L (136-148)
[2024-12-16 12:10] LABS: ESTIMATED GFR 40 mL/min (>60)
[2024-12-16 14:59] LABS: APPEARANCE,URINE CLEAR; GLUCOSE,URINE >=1000 mg/dL (NEGATIVE); OCCULT BLOOD,URINE NEGATIVE (NEGATIVE)
[2024-12-16] MEDS ORDERED: DICLOFENAC SODIUM TP PRN (15:31)
[2024-12-16] MEDS ORDERED: 50% Dextrose in Water 50 ML Syringe IVPUSH PRN (15:39)
[2024-12-16] MEDS: Pantoprazole 40 MG in Sodium Chloride 0.9% 10 ML IVPUSH ONE (17:24)
[2024-12-16] MEDS: Ondansetron 4 MG/2 ML SDV IVPUSH PRN (17:24)
[2024-12-16] MEDS: Lactated Ringers 1,000 ML IV ONE (17:25)
[2024-12-16] MEDS: Diltiazem 120 MG Cap.CD PO SCH (22:01)
[2024-12-17 05:47] LABS: BASOPHILS ABSOLUTE AUTO 0.07 K/uL (0.00-0.20); BASOPHILS PERCENT AUTO 0.5 % (0.0-1.0); EOSINOPHILS ABSOLUTE AUTO 0.54 K/uL (0.00-0.45); EOSINOPHILS PERCENT AUTO 4.1 % (0.0-6.0); IMMATURE GRAN ABSOLUTE AUTO 0.19 K/uL (0.00-0.05); IMMATURE GRAN PERCENT AUTO 1.5 % (0.0-0.4); LYMPHOCYTES ABSOLUTE AUTO 2.75 K/uL (1.00-4.80); LYMPHOCYTES PERCENT AUTO 21.0 % (24.0-44.0); MEAN PLATELET VOLUME 9.4 fL (9.4-12.4); MONOCYTES ABSOLUTE AUTO 0.97 K/uL (0.00-0.80); MONOCYTES PERCENT AUTO 7.4 % (0.0-8.0); NEUTROPHILS ABSOLUTE AUTO 8.56 K/uL (1.80-7.70); NEUTROPHILS PERCENT AUTO 65.5 % (41.0-71.0); NRBC ABSOLUTE 0.00 K/uL (0.00-0.02); NRBC PERCENT 0.0 /100WBC (0.0-0.2); PLATELET COUNT,PLT 239 K/uL (150-400); RED BLOOD CELL COUNT 5.48 M/uL (4.52-5.90); WHITE BLOOD CELL COUNT,WBC 13.08 K/uL (3.9-11.3)
[2024-12-17 06:09] LABS: BLOOD UREA NITROGEN,BUN 21.0 mg/dL (7.0-18.0); CARBON DIOXIDE,CO2 20.1 mmol/L (21.0-32.0); CHLORIDE,CL 102.0 mmol/L (98-107); CREATININE 1.3 mg/dL (0.8-1.3); EST CRCL DRUG DOSING (CG) 61.94 mL/min; GLUCOSE RANDOM 192.0 mg/dL (74-106); PHOSPHORUS 3.7 mg/dL (2.6-4.7); POTASSIUM,K 4.1 mmol/L (3.5-5.1); SODIUM,NA 137.0 mmol/L (136-148)
[2024-12-17 06:11] LABS: ESTIMATED GFR 64.0 mL/min (>60)
[2024-12-17] MEDS: Cholecalciferol (Vitamin D3) 25 MCG Tab PO SCH (08:18)
== END 2024-12-17 14:18 | disposition home or self-care (01) ==
LOC: MW.ED 11:15 → MW.MS 14:58
PROVIDERS: ADMIT Internal Medicine; ATTEND Internal Medicine
DX: N17.9 Acute kidney failure, unspecified (principal); R19.7 Diarrhea, unspecified; E86.0 Dehydration; I11.0 Hypertensive heart disease with heart failure; I50.32 Chronic diastolic (congestive) heart failure; I48.0 Paroxysmal atrial fibrillation; E11.9 Type 2 diabetes mellitus without complications; E78.00 Pure hypercholesterolemia, unspecified; G47.33 Obstructive sleep apnea (adult) (pediatric); Z79.01 Long term (current) use of anticoagulants; Z88.8 Allergy status to other drugs, medicaments and biological substances; Z79.899 Other long term (current) drug therapy
CPT/HCPCS: 36415; 70450; 71275; 72125; 74177; 80048; 80053; 81003; 82550; 82947; 83036; 83605; 83735; 83880; 84100; 84484; 85025; 85610; 85730; 86850; 86900; 86901; 87045; 87046; 87324; 87338; 87449; 87899; 93005; 97161; A9270; J1815; J2405; J2470; J7030; J7120; Q9967